=== PATIENT | male | born 1935 | race Caucasian/White ===

== ENCOUNTER 2016-11-18 11:33 | Day surgery (SDC) | payer MEDICARE ==
[2016-11-18 12:19] VITALS: RESP 20; TEMP 97.6
[2016-11-18 12:19] LABS: Mean Platelet Volume 7.6
[2016-11-18 12:28] LABS: Non-African American GFR(MDRD) >60 (>60 ml/min/1.73 sqM)
[2016-11-18 12:36] LABS: INR 1.2 (<1.1)
[2016-11-18] MEDS: ALBUMIN HUMAN 25% 50 ML in EMPTY BAG 1 BAG IVPB SCH ×4 (13:51→14:31)
[2016-11-18 14:57] VITALS: BP 113/61; PULSE 84
--- NOTE | 2016-11-18 15:40 | US ---
Therapeutic paracentesis. CLINICAL HISTORY: Ascites The procedure was discussed with the patient. The risks, complications, benefits, and alternatives we re discussed and any questions were answered. Informed consent was obtained. The patient was placed s upine on the ultrasound table and prepped and draped in the usual sterile fashion. All elements of maximal barrier technique were utilized. Under ultrasound guidance, access into the right lower quadrant was obtained, via the paracentesis catheter system and direct ultrasound guidanc e. Approximately 10.1 liters of straw-colored fluid was removed. The patient was stable throughout the p rocedure and remained stable upon discharge from Department of Radiology. IMPRESSION: Successful therapeutic paracentesis under ultrasound guidance.
[2016-11-19 03:26] LABS: RBC, Body Fluid 34 /uL
[2016-11-19 16:31] LABS: LDH, Body Fluid Source Paracentesis Fluid
[2016-11-19 16:48] LABS: T. Protein, Body Fluid Source Paracentesis Fluid; Total Protein, Body Fluid 1620 mg/dL
== END 2016-11-18 15:20 | disposition home or self-care (01) ==
LOC: RADPROMAIN 11:33
PROVIDERS: ATTEND Internal Medicine
DX: R18.8 Other ascites (principal)
CPT/HCPCS: 88108; 88305; 89050; 82565; 85049; 85610; 87070; 87205; 87075; 96365; 36415; 49083; P9047; 82150; 83615; 84157

== ENCOUNTER 2017-02-05 11:47 | Day surgery (SDC) | payer MEDICARE ==
[2017-02-05 12:19] VITALS: RESP 14; TEMP 97.4
[2017-02-05 12:50] LABS: INR 1.1 (<1.1); Partial Thromboplastin Time 22.3 sec (22.0-30.0); Prothrombin Time 11.3 sec (9.0-12.0)
[2017-02-05 12:50] LABS: Glucose,Whole Blood 89 mg/dL (75-99)
[2017-02-05 12:52] LABS: Mean Platelet Volume 7.4
[2017-02-05 13:00] LABS: Non-African American GFR(MDRD) >60 (>60 ml/min/1.73 sqM)
[2017-02-05] MEDS: ALBUMIN HUMAN 25% 50 ML in EMPTY BAG 1 BAG IVPB SCH ×2 (13:42→14:06)
[2017-02-05 15:17] VITALS: BP 114/59; PULSE 86
--- NOTE | 2017-02-05 21:54 | US ---
EXAMINATION TYPE: US paracentesis abd w/image DATE OF EXAM: 02/05/2017 CLINICAL HISTORY: Ascites The procedure was discussed with the patient. The risks, complications, benefits, and alternatives we re discussed and any questions were answered. Informed consent was obtained. The patient was placed s upine on the ultrasound table and prepped and draped in the usual sterile fashion. All elements of maximal barrier technique were utilized. Under ultrasound guidance, access into the right lower quadrant was obtained, via the paracentesis catheter system and direct ultrasound guidanc e. Approximately 10.6 liters of straw-colored fluid was removed. The patient was stable throughout the p rocedure and remained stable upon discharge from Department of Radiology. IMPRESSION: Successful therapeutic paracentesis under ultrasound guidance.
== END 2017-02-05 16:00 | disposition home or self-care (01) ==
LOC: RADPROMAIN 11:47
DX: R18.8 Other ascites (principal); I10 Essential (primary) hypertension; M19.90 Unspecified osteoarthritis, unspecified site; E78.5 Hyperlipidemia, unspecified; N40.0 Benign prostatic hyperplasia without lower urinary tract symptoms; I48.0 Paroxysmal atrial fibrillation; L40.9 Psoriasis, unspecified; E11.9 Type 2 diabetes mellitus without complications; F98.8 Other specified behavioral and emotional disorders with onset usually occurring in childhood and adolescence; J20.9 Acute bronchitis, unspecified; H91.90 Unspecified hearing loss, unspecified ear; Z79.01 Long term (current) use of anticoagulants; Z79.82 Long term (current) use of aspirin; Z79.899 Other long term (current) drug therapy; Z88.1 Allergy status to other antibiotic agents
CPT/HCPCS: 82565; 85049; 85610; 85730; 96374; 49083; P9047

== ENCOUNTER 2017-02-25 08:53 | Day surgery (SDC) | payer MEDICARE ==
[2017-02-25 09:24] VITALS: RESP 20; TEMP 97.5
[2017-02-25 09:31] LABS: Mean Platelet Volume 7.9
[2017-02-25 09:36] LABS: INR 1.1 (<1.2); Prothrombin Time 11.4 sec (9.0-12.0)
[2017-02-25 09:40] LABS: Non-African American GFR(MDRD) >60 (>60 ml/min/1.73 sqM)
[2017-02-25] MEDS: ALBUMIN HUMAN 25% 50 ML in EMPTY BAG 1 BAG IVPB SCH ×4 (10:25→11:15)
[2017-02-25 12:08] VITALS: BP 113/60; PULSE 80
--- NOTE | 2017-02-25 13:59 | US ---
EXAMINATION TYPE: US paracentesis abd w/image DATE OF EXAM: 02/25/2017 COMPARISON: NONE HISTORY: Ascites. PROCEDURE: Maximal barrier technique was utilized. The skin overlying a suitable pocket of fluid was localized with ultrasound and the overlying skin was prepped and draped. Ultrasound was utilized with sterile technique. Lidocaine was used for local anesthesia and a skin kezia made with a scalpel. Catheter was advanced under direct ultrasound guidance into a suitable pocket of fluid and approximately 13.6 lite rs of serous fluid were removed. Catheter was withdrawn and hemostasis achieved. There is no immedi ate complication; the patient is discharged in stable condition. IMPRESSION: STATUS POST ULTRASOUND GUIDED PARACENTESIS FOR PALLIATION OF ASCITES. THIS PROCEDURE WA S PERFORMED BY THE UNDERSIGNED.
== END 2017-02-25 12:30 | disposition home or self-care (01) ==
LOC: RADPROMAIN 08:53
PROVIDERS: ATTEND Internal Medicine
DX: R18.8 Other ascites (principal)
CPT/HCPCS: 49083; 82565; 36415; 85049; 85610; 96365; P9047

== ENCOUNTER 2017-03-13 08:56 | Day surgery (SDC) | payer MEDICARE ==
[2017-03-13 09:22] VITALS: RESP 20; TEMP 97.5
[2017-03-13 09:32] LABS: Non-African American GFR(MDRD) >60 (>60 ml/min/1.73 sqM)
[2017-03-13 09:34] LABS: INR 1.2 (<1.2); Prothrombin Time 11.5 sec (9.0-12.0)
[2017-03-13 09:40] LABS: Mean Platelet Volume 7.8
[2017-03-13] MEDS: ALBUMIN HUMAN 25% 50 ML in EMPTY BAG 1 BAG IVPB SCH ×4 (10:55→11:47)
[2017-03-13 12:43] VITALS: BP 117/70; PULSE 121
--- NOTE | 2017-03-13 13:28 | US ---
EXAMINATION TYPE: US paracentesis abd w/image DATE OF EXAM: 03/13/2017 COMPARISON: NONE HISTORY: Ascites. PROCEDURE: Maximal barrier technique was utilized. The skin overlying a suitable pocket of fluid was localized with ultrasound and the overlying skin was prepped and draped. Ultrasound was utilized with sterile technique. Lidocaine was used for local anesthesia and a skin kezia made with a scalpel. Catheter was advanced under direct ultrasound guidance into a suitable pocket of fluid and approximately 13.6 lite rs of serous fluid were removed. Catheter was withdrawn and hemostasis achieved. There is no immedi ate complication; the patient is discharged in stable condition. IMPRESSION: STATUS POST ULTRASOUND GUIDED PARACENTESIS FOR PALLIATION OF ASCITES. THIS PROCEDURE WA S PERFORMED BY THE UNDERSIGNED.
== END 2017-03-13 12:50 | disposition home or self-care (01) ==
LOC: RADPROMAIN 08:56
PROVIDERS: ATTEND Internal Medicine
DX: R18.8 Other ascites (principal)
CPT/HCPCS: 82565; 85049; 85610; 96365; 36415; 49083; P9047

== ENCOUNTER 2017-03-25 09:06 | Day surgery (SDC) | payer MEDICARE ==
[2017-03-25 09:32] LABS: Mean Platelet Volume 7.4
[2017-03-25 09:33] VITALS: TEMP 97
[2017-03-25 09:42] LABS: INR 1.1 (<1.2); Prothrombin Time 11.2 sec (9.0-12.0)
[2017-03-25 09:44] LABS: Non-African American GFR(MDRD) >60 (>60 ml/min/1.73 sqM)
[2017-03-25] MEDS: ALBUMIN HUMAN 25% 50 ML in EMPTY BAG 1 BAG IVPB SCH ×4 (10:05→10:55)
[2017-03-25 10:34] VITALS: RESP 16
[2017-03-25 11:15] VITALS: PULSE 66
[2017-03-25 11:34] VITALS: BP 134/74
--- NOTE | 2017-03-25 12:14 | US ---
Therapeutic paracentesis. DATE OF EXAM: 03/25/2017 CLINICAL HISTORY: Ascites The procedure was discussed with the patient. The risks, complications, benefits, and alternatives we re discussed and any questions were answered. Informed consent was obtained. The patient was placed s upine on the ultrasound table and prepped and draped in the usual sterile fashion. All elements of maximal barrier technique were utilized. Under ultrasound guidance, access into the right lower quadrant was obtained, via the paracentesis catheter system and direct ultrasound guidanc e. Approximately 11.3 liters of straw-colored fluid was removed. The patient was stable throughout the p rocedure and remained stable upon discharge from Department of Radiology. IMPRESSION: Successful therapeutic paracentesis under ultrasound guidance.
[2017-03-25 14:06] LABS: Glucose,Whole Blood 86 mg/dL (75-99)
== END 2017-03-25 12:25 | disposition home or self-care (01) ==
LOC: RADPROMAIN 09:06
PROVIDERS: ATTEND Internal Medicine
CPT/HCPCS: 36415; 49083; 82565; 85049; 85610

== ENCOUNTER 2017-04-06 08:48 | Day surgery (SDC) | payer MEDICARE ==
[2017-04-06 09:12] VITALS: RESP 14; TEMP 97.4
[2017-04-06 09:23] LABS: Mean Platelet Volume 7.8
[2017-04-06 09:29] LABS: Non-African American GFR(MDRD) >60 (>60 ml/min/1.73 sqM)
[2017-04-06 09:32] LABS: INR 1.1 (<1.2); Prothrombin Time 10.9 sec (9.0-12.0)
[2017-04-06 09:34] LABS: Glucose,Whole Blood 95 mg/dL (75-99)
[2017-04-06] MEDS: ALBUMIN HUMAN 25% 50 ML in EMPTY BAG 1 BAG IVPB SCH ×4 (09:58→10:50)
[2017-04-06 11:47] VITALS: BP 117/61; PULSE 93
--- NOTE | 2017-04-06 12:10 | US ---
Therapeutic paracentesis. DATE OF EXAM: 04/06/2017 CLINICAL HISTORY: Ascites The procedure was discussed with the patient. The risks, complications, benefits, and alternatives we re discussed and any questions were answered. Informed consent was obtained. The patient was placed s upine on the ultrasound table and prepped and draped in the usual sterile fashion. All elements of maximal barrier technique were utilized. Under ultrasound guidance, access into the right lower quadrant was obtained, via the paracentesis catheter system and direct ultrasound guidanc e. Approximately 14 liters of straw-colored fluid was removed. The patient was stable throughout the pro cedure and remained stable upon discharge from Department of Radiology. IMPRESSION: Successful therapeutic paracentesis under ultrasound guidance.
== END 2017-04-06 11:51 | disposition home or self-care (01) ==
LOC: RADPROMAIN 08:48
PROVIDERS: ATTEND Internal Medicine
DX: R18.8 Other ascites (principal)
CPT/HCPCS: 82565; 85049; 85610; 96365; 49083; P9047

== ENCOUNTER 2017-04-14 11:49 | Day surgery (SDC) | payer MEDICARE ==
[2017-04-14 12:22] VITALS: RESP 14; TEMP 97.6
[2017-04-14 12:27] LABS: Mean Platelet Volume 7.7
[2017-04-14 12:36] LABS: Non-African American GFR(MDRD) >60 (>60 ml/min/1.73 sqM)
[2017-04-14 12:50] LABS: INR 1.1 (<1.2); Prothrombin Time 11.5 sec (9.0-12.0)
[2017-04-14] MEDS: ALBUMIN HUMAN 25% 50 ML in EMPTY BAG 1 BAG IVPB SCH ×4 (13:10→14:03)
[2017-04-14 14:00] LABS: Glucose,Whole Blood 68 mg/dL (75-99)
[2017-04-14 14:25] LABS: Glucose,Whole Blood 70 mg/dL (75-99)
[2017-04-14 14:51] VITALS: BP 115/69; PULSE 82
--- NOTE | 2017-04-14 14:54 | US ---
Therapeutic paracentesis. DATE OF EXAM: 04/14/2017 CLINICAL HISTORY: Ascites The procedure was discussed with the patient. The risks, complications, benefits, and alternatives we re discussed and any questions were answered. Informed consent was obtained. The patient was placed s upine on the ultrasound table and prepped and draped in the usual sterile fashion. All elements of maximal barrier technique were utilized. Under ultrasound guidance, access into the right lower quadrant was obtained, via the paracentesis catheter system and direct ultrasound guidanc e. Approximately 11.3 liters of straw-colored fluid was removed. The patient was stable throughout the p rocedure and remained stable upon discharge from Department of Radiology. IMPRESSION: Successful therapeutic paracentesis under ultrasound guidance.
== END 2017-04-14 15:22 | disposition home or self-care (01) ==
LOC: RADPROMAIN 11:49
PROVIDERS: ATTEND Internal Medicine
DX: R18.8 Other ascites (principal)
CPT/HCPCS: 82565; 85049; 85610; 96365; 49083; P9047

== ENCOUNTER 2017-04-21 11:54 | Day surgery (SDC) | payer MEDICARE ==
[2017-04-21 12:34] LABS: INR 1.2 (<1.2); Prothrombin Time 11.7 sec (9.0-12.0)
[2017-04-21 12:35] LABS: Mean Platelet Volume 8.1
[2017-04-21 12:36] VITALS: TEMP 97.1
[2017-04-21 12:47] LABS: Non-African American GFR(MDRD) 59 (>60 ml/min/1.73 sqM)
[2017-04-21] MEDS: ALBUMIN HUMAN 25% 50 ML in EMPTY BAG 1 BAG IVPB SCH ×4 (13:26→14:15)
--- NOTE | 2017-04-21 15:09 | US ---
Therapeutic paracentesis. DATE OF EXAM: 04/21/2017 CLINICAL HISTORY: Ascites The procedure was discussed with the patient. The risks, complications, benefits, and alternatives we re discussed and any questions were answered. Informed consent was obtained. The patient was placed s upine on the ultrasound table and prepped and draped in the usual sterile fashion. All elements of maximal barrier technique were utilized. Under ultrasound guidance, access into the right lower quadrant was obtained, via the paracentesis catheter system and direct ultrasound guidanc e. Approximately 8.6 liters of straw-colored fluid was removed. The patient was stable throughout the pr ocedure and remained stable upon discharge from Department of Radiology. IMPRESSION: Successful therapeutic paracentesis under ultrasound guidance.
[2017-04-21 15:14] VITALS: BP 100/51; PULSE 74; RESP 18
== END 2017-04-21 15:00 | disposition home or self-care (01) ==
LOC: RADPROMAIN 11:54
PROVIDERS: ATTEND Internal Medicine
DX: R18.8 Other ascites (principal)
CPT/HCPCS: 82565; 82947; 85049; 85610; 96365; 36415; 49083; P9047

== ENCOUNTER 2017-04-28 08:52 | Day surgery (SDC) | payer MEDICARE ==
[2017-04-28 09:21] VITALS: RESP 20; TEMP 97.4
[2017-04-28 09:26] LABS: Mean Platelet Volume 7.7
[2017-04-28 09:34] LABS: Non-African American GFR(MDRD) >60 (>60 ml/min/1.73 sqM)
[2017-04-28 09:40] LABS: INR 1.1 (<1.2); Prothrombin Time 11.2 sec (9.0-12.0)
[2017-04-28] MEDS: ALBUMIN HUMAN 25% 50 ML in EMPTY BAG 1 BAG IVPB SCH ×4 (10:51→11:31)
[2017-04-28 12:00] VITALS: BP 121/69; PULSE 78
--- NOTE | 2017-04-28 12:46 | US ---
EXAMINATION TYPE: US paracentesis abd w/image DATE OF EXAM: 04/28/2017 COMPARISON: NONE HISTORY: Ascites. PROCEDURE: Maximal barrier technique was utilized. The skin overlying a suitable pocket of fluid was localized with ultrasound and the overlying skin was prepped and draped. Ultrasound was utilized with sterile technique. Lidocaine was used for local anesthesia and a skin kezia made with a scalpel. Catheter was advanced under direct ultrasound guidance into a suitable pocket of fluid and approximately 10.2 lite rs of serous fluid were removed. Catheter was withdrawn and hemostasis achieved. There is no immedi ate complication; the patient is discharged in stable condition. IMPRESSION: STATUS POST ULTRASOUND GUIDED PARACENTESIS FOR PALLIATION OF ASCITES. THIS PROCEDURE WA S PERFORMED BY THE UNDERSIGNED.
== END 2017-04-28 12:12 | disposition home or self-care (01) ==
LOC: RADPROMAIN 08:52
PROVIDERS: ATTEND Internal Medicine
DX: R18.8 Other ascites (principal)
CPT/HCPCS: 82565; 85049; 85610; 96365; 36415; 49083; P9047

== ENCOUNTER 2017-05-05 08:00 | Day surgery (SDC) | payer MEDICARE ==
[2017-05-05 08:48] LABS: Mean Platelet Volume 7.8
[2017-05-05 08:49] LABS: Non-African American GFR(MDRD) >60 (>60 ml/min/1.73 sqM)
[2017-05-05 08:58] LABS: INR 1.1 (<1.2); Prothrombin Time 10.8 sec (9.0-12.0)
[2017-05-05 09:19] VITALS: TEMP 97.3
[2017-05-05] MEDS: ALBUMIN HUMAN 25% 50 ML in EMPTY BAG 1 BAG IVPB SCH ×4 (09:46→10:55)
[2017-05-05 10:12] VITALS: RESP 18
[2017-05-05 12:07] VITALS: BP 114/64; PULSE 68
--- NOTE | 2017-05-05 12:18 | US ---
EXAMINATION TYPE: US paracentesis abd w/image DATE OF EXAM: 05/05/2017 COMPARISON: NONE HISTORY: Ascites. PROCEDURE: Maximal barrier technique was utilized. The skin overlying a suitable pocket of fluid was localized with ultrasound and the overlying skin was prepped and draped. Ultrasound was utilized with sterile technique. Lidocaine was used for local anesthesia and a skin kezia made with a scalpel. Catheter was advanced under direct ultrasound guidance into a suitable pocket of fluid and approximately 11 liters of serous fluid were removed. Catheter was withdrawn and hemostasis achieved. There is no immediat e complication; the patient is discharged in stable condition. IMPRESSION: STATUS POST ULTRASOUND GUIDED PARACENTESIS FOR PALLIATION OF ASCITES. THIS PROCEDURE WA S PERFORMED BY THE UNDERSIGNED.
== END 2017-05-05 12:05 | disposition home or self-care (01) ==
LOC: RADPROMAIN 08:00
PROVIDERS: ATTEND Internal Medicine
DX: R18.8 Other ascites (principal)
CPT/HCPCS: 82565; 85049; 85610; 96365; 36415; 49083; P9047

== ENCOUNTER 2017-05-12 11:51 | Day surgery (SDC) | payer MEDICARE ==
[2017-05-12 12:26] LABS: Mean Platelet Volume 7.9
[2017-05-12 12:36] LABS: Non-African American GFR(MDRD) >60 (>60 ml/min/1.73 sqM)
[2017-05-12 12:37] LABS: Glucose,Whole Blood 87 mg/dL (75-99)
[2017-05-12 12:42] LABS: INR 1.1 (<1.2); Prothrombin Time 10.9 sec (9.0-12.0)
[2017-05-12] MEDS: ALBUMIN HUMAN 25% 50 ML in EMPTY BAG 1 BAG IVPB SCH ×4 (13:26→14:14)
[2017-05-12 13:32] VITALS: TEMP 98.1
[2017-05-12 14:17] VITALS: RESP 16
[2017-05-12 14:36] VITALS: BP 117/68; PULSE 70
--- NOTE | 2017-05-12 16:29 | US ---
EXAMINATION TYPE: US paracentesis abd w/image DATE OF EXAM: 05/12/2017 COMPARISON: NONE HISTORY: Ascites. PROCEDURE: Maximal barrier technique was utilized. The skin overlying a suitable pocket of fluid was localized with ultrasound and the overlying skin was prepped and draped. Ultrasound was utilized with sterile technique. Lidocaine was used for local anesthesia and a skin kezia made with a scalpel. Catheter was advanced under direct ultrasound guidance into a suitable pocket of fluid and approximately 8.5 liter s of serous fluid were removed. Catheter was withdrawn and hemostasis achieved. There is no immedia te complication; the patient is discharged in stable condition. IMPRESSION: STATUS POST ULTRASOUND GUIDED PARACENTESIS FOR PALLIATION OF ASCITES. THIS PROCEDURE WA S PERFORMED BY THE UNDERSIGNED.
== END 2017-05-12 14:54 | disposition home or self-care (01) ==
LOC: RADPROMAIN 11:51
PROVIDERS: ATTEND Internal Medicine
DX: R18.8 Other ascites (principal)
CPT/HCPCS: 49083; 82565; 85049; 85610; 96365; 36415; P9047

== ENCOUNTER 2017-05-19 11:49 | Day surgery (SDC) | payer MEDICARE ==
[2017-05-19 12:49] LABS: Mean Platelet Volume 7.3
[2017-05-19 12:57] LABS: Glucose 88 mg/dL (74-99); Non-African American GFR(MDRD) >60 (>60 ml/min/1.73 sqM)
[2017-05-19 13:20] LABS: INR 1.1 (<1.2); Prothrombin Time 10.6 sec (9.0-12.0)
[2017-05-19] MEDS: ALBUMIN HUMAN 25% 50 ML in EMPTY BAG 1 BAG IVPB SCH ×4 (13:27→14:22)
[2017-05-19 13:44] VITALS: TEMP 98
[2017-05-19 13:45] VITALS: RESP 16
--- NOTE | 2017-05-19 14:50 | US ---
EXAMINATION TYPE: US paracentesis abd w/image DATE OF EXAM: 05/19/2017 COMPARISON: NONE HISTORY: Ascites. PROCEDURE: Maximal barrier technique was utilized. The skin overlying a suitable pocket of fluid was localized with ultrasound and the overlying skin was prepped and draped. Ultrasound was utilized with sterile technique. Lidocaine was used for local anesthesia and a skin kezia made with a scalpel. Catheter was advanced under direct ultrasound guidance into a suitable pocket of fluid and approximately 7.8 liter s of serous fluid were removed. Catheter was withdrawn and hemostasis achieved. There is no immedia te complication; the patient is discharged in stable condition. IMPRESSION: STATUS POST ULTRASOUND GUIDED PARACENTESIS FOR PALLIATION OF ASCITES. THIS PROCEDURE WA S PERFORMED BY THE UNDERSIGNED.
[2017-05-19 15:32] VITALS: BP 131/70; PULSE 76
== END 2017-05-19 14:55 | disposition home or self-care (01) ==
LOC: RADPROMAIN 11:49
PROVIDERS: ATTEND Internal Medicine
DX: R18.8 Other ascites (principal)
CPT/HCPCS: 82565; 82947; 85049; 85610; 96365; 36415; 49083; P9047

== ENCOUNTER 2017-06-09 08:51 | Day surgery (SDC) | payer MEDICARE ==
[2017-06-09 09:51] LABS: Mean Platelet Volume 7.5
[2017-06-09 09:54] VITALS: TEMP 97.5
[2017-06-09 09:55] LABS: INR 1.1 (<1.2)
[2017-06-09 10:01] LABS: Non-African American GFR(MDRD) >60 (>60 ml/min/1.73 sqM)
[2017-06-09] MEDS: ALBUMIN HUMAN 25% 50 ML in EMPTY BAG 1 BAG IVPB SCH ×4 (10:42→11:33)
[2017-06-09 11:34] VITALS: RESP 16
--- NOTE | 2017-06-09 14:12 | US ---
EXAMINATION TYPE: US paracentesis abd w/image DATE OF EXAM: 06/09/2017 COMPARISON: NONE HISTORY: Ascites. PROCEDURE: Maximal barrier technique was utilized. The skin overlying a suitable pocket of fluid was localized with ultrasound and the overlying skin was prepped and draped. Ultrasound was utilized with sterile technique. Lidocaine was used for local anesthesia and a skin kezia made with a scalpel. Catheter was advanced under direct ultrasound guidance into a suitable pocket of fluid and approximately 10.4 lite rs of serous fluid were removed. Catheter was withdrawn and hemostasis achieved. There is no immedi ate complication; the patient is discharged in stable condition. IMPRESSION: STATUS POST ULTRASOUND GUIDED PARACENTESIS FOR PALLIATION OF ASCITES. THIS PROCEDURE WA S PERFORMED BY THE UNDERSIGNED.
[2017-06-09 14:14] VITALS: BP 110/70; PULSE 95
== END 2017-06-09 12:55 | disposition home or self-care (01) ==
LOC: RADPROMAIN 08:51
PROVIDERS: ATTEND Internal Medicine
DX: R18.8 Other ascites (principal)
CPT/HCPCS: 82565; 85049; 85610; 96365; 36415; 49083; P9047

== ENCOUNTER 2017-06-16 11:52 | Day surgery (SDC) | payer MEDICARE ==
[2017-06-16] MEDS ORDERED: INFLUENZA VACCINE (6 MOS+) 60 MCG/0.5 ML SYRINGE IM ONE (12:17)
[2017-06-16 12:26] LABS: CH 30.8; CHCM 33.6; HCT 38.8 % (39.0-53.0); HDW 2.25; MCH 30.9 pg (25.0-35.0); MCHC 33.5 g/dL (31.0-37.0); MCV 92.3 fL (80.0-100.0); Mean Platelet Volume 6.9; RBC 4.21 m/uL (4.30-5.90); RDW 14.5 % (11.5-15.5); WBC 9.2 k/uL (3.8-10.6)
[2017-06-16 12:36] VITALS: RESP 14; TEMP 97.8
[2017-06-16 12:39] LABS: Anion Gap 5 mmol/L; Blood Urea Nitrogen 29 mg/dL (9-20); Calcium 8.4 mg/dL (8.4-10.2); Carbon Dioxide 25 mmol/L (22-30); Chloride 101 mmol/L (98-107); Glucose 91 mg/dL (74-99); Non-African American GFR(MDRD) >60 (>60 ml/min/1.73 sqM); Sodium 131 mmol/L (137-145); Total Protein 6.4 g/dL (6.3-8.2)
[2017-06-16 12:40] LABS: ALT 48 U/L (21-72); AST 49 U/L (17-59); Alkaline Phosphatase 245 U/L (38-126); Total Bilirubin 1.3 mg/dL (0.2-1.3)
[2017-06-16 12:41] LABS: Potassium 4.4 mmol/L (3.5-5.1)
[2017-06-16 12:45] LABS: INR 1.1 (<1.2); Partial Thromboplastin Time 23.5 sec (22.0-30.0); Prothrombin Time 11.1 sec (9.0-12.0)
[2017-06-16] MEDS: ALBUMIN HUMAN 25% 50 ML in EMPTY BAG 1 BAG IVPB SCH ×4 (13:38→14:15)
[2017-06-16 14:53] VITALS: BP 113/58; PULSE 89
--- NOTE | 2017-06-16 15:29 | US ---
EXAMINATION TYPE: US paracentesis abd w/image DATE OF EXAM: 06/16/2017 COMPARISON: NONE HISTORY: Ascites. PROCEDURE: Maximal barrier technique was utilized. The skin overlying a suitable pocket of fluid was localized with ultrasound and the overlying skin was prepped and draped. Ultrasound was utilized with sterile technique. Lidocaine was used for local anesthesia and a skin kezia made with a scalpel. Catheter was advanced under direct ultrasound guidance into a suitable pocket of fluid and approximately 9.5 liter s of serous fluid were removed. Catheter was withdrawn and hemostasis achieved. There is no immedia te complication; the patient is discharged in stable condition. IMPRESSION: STATUS POST ULTRASOUND GUIDED PARACENTESIS FOR PALLIATION OF ASCITES. THIS PROCEDURE WA S PERFORMED BY THE UNDERSIGNED.
== END 2017-06-16 15:25 | disposition home or self-care (01) ==
LOC: RADPROMAIN 11:52
PROVIDERS: ATTEND Internal Medicine
DX: R18.8 Other ascites (principal); I48.0 Paroxysmal atrial fibrillation
CPT/HCPCS: 49083; 80053; 85027; 85610; 85730; 90686

== ENCOUNTER 2017-06-23 11:48 | Day surgery (SDC) | payer MEDICARE ==
[2017-06-23 12:24] LABS: Mean Platelet Volume 7.9
[2017-06-23 12:26] VITALS: RESP 16
[2017-06-23 12:34] LABS: Glucose,Whole Blood 80 mg/dL (75-99)
[2017-06-23 12:36] LABS: Non-African American GFR(MDRD) >60 (>60 ml/min/1.73 sqM)
[2017-06-23 12:54] LABS: INR 1.1 (<1.2)
[2017-06-23] MEDS: ALBUMIN HUMAN 25% 50 ML in EMPTY BAG 1 BAG IVPB SCH ×4 (13:31→14:17)
--- NOTE | 2017-06-23 15:22 | US ---
Therapeutic paracentesis. DATE OF EXAM: 06/23/2017 CLINICAL HISTORY: Ascites The procedure was discussed with the patient. The risks, complications, benefits, and alternatives we re discussed and any questions were answered. Informed consent was obtained. The patient was placed s upine on the ultrasound table and prepped and draped in the usual sterile fashion. All elements of maximal barrier technique were utilized. Under ultrasound guidance, access into the left lower quadrant was obtained, via the paracentesis catheter system and direct ultrasound guidance . Approximately 9.3 liters of straw-colored fluid was removed. The patient was stable throughout the pr ocedure and remained stable upon discharge from Department of Radiology. IMPRESSION: Successful therapeutic paracentesis under ultrasound guidance.
[2017-06-23 16:18] VITALS: BP 123/69; PULSE 82
== END 2017-06-23 16:54 | disposition home or self-care (01) ==
LOC: RADPROMAIN 11:48
PROVIDERS: ATTEND Internal Medicine
DX: R18.8 Other ascites (principal); I48.0 Paroxysmal atrial fibrillation
CPT/HCPCS: 82565; 85049; 85610; 96365; 36415; 49083; P9047

== ENCOUNTER 2017-07-21 10:52 | Day surgery (SDC) | payer MEDICARE ==
[2017-07-21 11:50] LABS: Mean Platelet Volume 7.8
[2017-07-21 11:57] LABS: Non-African American GFR(MDRD) >60 (>60 ml/min/1.73 sqM)
[2017-07-21 12:27] LABS: INR 1.1 (<1.2); Prothrombin Time 10.9 sec (9.0-12.0)
[2017-07-21] MEDS: ALBUMIN HUMAN 25% 50 ML in EMPTY BAG 1 BAG IVPB SCH ×4 (13:10→13:53)
[2017-07-21 13:34] VITALS: TEMP 97.5
--- NOTE | 2017-07-21 14:37 | US ---
EXAMINATION TYPE: US paracentesis abd w/image DATE OF EXAM: 07/21/2017 COMPARISON: NONE HISTORY: Ascites. PROCEDURE: Maximal barrier technique was utilized. The skin overlying a suitable pocket of fluid was localized with ultrasound and the overlying skin was prepped and draped. Ultrasound was utilized with sterile technique. Lidocaine was used for local anesthesia and a skin kezia made with a scalpel. Catheter was advanced under direct ultrasound guidance into a suitable pocket of fluid and approximately 9.5 liter s of traiq fluid were removed. Catheter was withdrawn and hemostasis achieved. There is no immediat e complication; the patient is discharged in stable condition. IMPRESSION: STATUS POST ULTRASOUND GUIDED PARACENTESIS FOR PALLIATION OF ASCITES. THIS PROCEDURE WA S PERFORMED BY THE UNDERSIGNED.
[2017-07-21 15:17] VITALS: RESP 18
[2017-07-21 15:18] VITALS: BP 111/74; PULSE 94
== END 2017-07-21 14:40 | disposition home or self-care (01) ==
LOC: RADPROMAIN 10:52
PROVIDERS: ATTEND Internal Medicine
DX: R18.8 Other ascites (principal)
CPT/HCPCS: 49083; 82565; 85049; 85610; 96365; 36415; P9047

== ENCOUNTER 2017-07-28 11:50 | Day surgery (SDC) | payer MEDICARE ==
[2017-07-28 12:31] LABS: Platelet Count 299 k/uL (150-450)
[2017-07-28 12:36] LABS: INR 1.1 (<1.2); Prothrombin Time 10.7 sec (9.0-12.0)
[2017-07-28] MEDS: ALBUMIN HUMAN 25% 50 ML in EMPTY BAG 1 BAG IVPB SCH ×4 (13:10→14:11)
--- NOTE | 2017-07-28 15:06 | US ---
Therapeutic paracentesis. DATE OF EXAM: 07/28/2017 CLINICAL HISTORY: Ascites The procedure was discussed with the patient. The risks, complications, benefits, and alternatives we re discussed and any questions were answered. Informed consent was obtained. The patient was placed s upine on the ultrasound table and prepped and draped in the usual sterile fashion. All elements of maximal barrier technique were utilized. Under ultrasound guidance, access into the right lower quadrant was obtained, via the paracentesis catheter system and direct ultrasound guidanc e. Approximately 10.7 liters of straw-colored fluid was removed. The patient was stable throughout the p rocedure and remained stable upon discharge from Department of Radiology. IMPRESSION: Successful therapeutic paracentesis under ultrasound guidance.
[2017-07-29 23:03] VITALS: BP 122/74; PULSE 74; RESP 18; TEMP 97.4
== END 2017-07-28 15:10 | disposition home or self-care (01) ==
LOC: RADPROMAIN 11:50
PROVIDERS: ATTEND Internal Medicine
DX: R18.8 Other ascites (principal)
CPT/HCPCS: 49083; 82565; 85049; 85610; 96365; 36415; P9047

== ENCOUNTER 2017-08-04 12:05 | Day surgery (SDC) | payer MEDICARE ==
[2017-08-04 12:31] VITALS: RESP 20; TEMP 97.6
[2017-08-04 12:46] LABS: Mean Platelet Volume 7.6; Platelet Count 367 k/uL (150-450)
[2017-08-04 12:53] LABS: INR 1.1 (<1.2); Prothrombin Time 10.3 sec (9.0-12.0)
[2017-08-04] MEDS: ALBUMIN HUMAN 25% 50 ML in EMPTY BAG 1 BAG IVPB SCH ×4 (13:28→14:26)
[2017-08-04 15:37] VITALS: BP 105/60; PULSE 90
--- NOTE | 2017-08-04 16:05 | US ---
EXAMINATION TYPE: US paracentesis abd w/image DATE OF EXAM: 08/04/2017 COMPARISON: NONE HISTORY: Ascites. PROCEDURE: Maximal barrier technique was utilized. The skin overlying a suitable pocket of fluid was localized with ultrasound and the overlying skin was prepped and draped. Ultrasound was utilized with sterile technique. Lidocaine was used for local anesthesia and a skin kezia made with a scalpel. Catheter was advanced under direct ultrasound guidance into a suitable pocket of fluid and approximately 10.5 lite rs of serous sanguinous fluid were removed. Catheter was withdrawn and hemostasis achieved. There i s no immediate complication; the patient is discharged in stable condition. IMPRESSION: STATUS POST ULTRASOUND GUIDED PARACENTESIS FOR PALLIATION OF ASCITES. THIS PROCEDURE WA S PERFORMED BY THE UNDERSIGNED.
== END 2017-08-04 15:55 | disposition home or self-care (01) ==
LOC: RADPROMAIN 12:05
PROVIDERS: ATTEND Internal Medicine
DX: R18.8 Other ascites (principal)
CPT/HCPCS: 82565; 85049; 85610; 96365; 36415; 49083; P9047

== ENCOUNTER 2017-08-10 14:30 | Emergency (ER) | payer MEDICARE ==
[2017-08-10] MEDS ORDERED: MORPHINE SULFATE 5 MG/ML SYRINGE IV STA (15:22)
[2017-08-10] MEDS ORDERED: PANTOPRAZOLE 40 MG/10 ML VIAL IVP STA (15:22)
--- NOTE | 2017-08-10 15:31 | ED ---
General Adult HPI - General Chief complaint: Shortness of Breath Stated complaint: right side pain Time Seen by Provider: 08/10/17 15:05 Source: patient, RN notes reviewed, old records reviewed Mode of arrival: wheelchair Limitations: no limitations, physical limitation - History of Present Illness Initial comments: This is an 81-year-old male to the ER today for evaluation regarding shortness of breath right-sided abdominal pain. This abdominal distention. Patient has history of liver disease, cirrhosis secondary to alcoholism. Patient coming in today with mild shortness of breath secondary to distention, patient is scheduled for therapeutic paracentesis tomorrow. Patient denies fevers. Decreased appetite decreased urinary output. Patient denies any recent change in medications - Related Data Home Medications Medication Instructions Recorded Confirmed Apixaban [Eliquis] 5 mg PO DIRECTED 02/29/16 08/11/17 Enalapril/Hydrochlorothiazide 25 mg PO DAILY 02/29/16 08/11/17 [Vaseretic 10-25 mg] Spironolactone [Aldactone] 50 mg PO BID 11/13/16 08/11/17 Furosemide [Lasix] 20 mg PO BID@0800,1600 02/04/17 08/11/17 Previous Rx's Medication Instructions Recorded HYDROcodone/APAP 5-325MG [[place] 1 tab PO Q6HR PRN #20 tab 08/10/17 5-325] Allergies Allergy/AdvReac Type Severity Reaction Status Date / Time Penicillins Allergy Rash/Hives Verified 08/11/17 14:06 Review of Systems ROS Statement: Those systems with pertinent positive or pertinent negative responses have been documented in the HPI. ROS Other: All systems not noted in ROS Statement are negative. Past Medical History Past Medical History: Atrial Fibrillation, Cancer, Diabetes Mellitus, Hypertension, Liver Disease, Osteoarthritis (OA) Additional Past Medical History / Comment(s): a-fib - eliquis, skin ca History of Any Multi-Drug Resistant Organisms: None Reported Past Surgical History: No Surgical Hx Reported Additional Past Surgical History / Comment(s): multiple paracentesis, mole removed - skin ca Past Anesthesia/Blood Transfusion Reactions: No Reported Reaction Additional Past Anesthesia/Blood Transfusion Reaction / Comment(s): no past anesthesia/bld transfusion Past Psychological History: No Psychological Hx Reported Smoking Status: Never smoker Past Alcohol Use History: None Reported Past Drug Use History: None Reported - Past Family History Father Family Medical History: No Reported History General Exam Limitations: no limitations, physical limitation General appearance: alert, in no apparent distress Head exam: Present: atraumatic, normocephalic, normal inspection Eye exam: Present: normal appearance, PERRL, EOMI. Absent: scleral icterus, conjunctival injection, periorbital swelling ENT exam: Present: normal exam, mucous membranes moist Neck exam: Present: normal inspection. Absent: tenderness, meningismus, lymphadenopathy Respiratory exam: Present: normal lung sounds bilaterally. Absent: respiratory distress, wheezes, rales, rhonchi, stridor Cardiovascular Exam: Present: regular rate, normal rhythm, normal heart sounds. Absent: systolic murmur, diastolic murmur, rubs, gallop, clicks GI/Abdominal exam: Present: soft, distended (Distention and from ascites), normal bowel sounds. Absent: tenderness, guarding, rebound, rigid Extremities exam: Present: normal inspection, full ROM, normal capillary refill. Absent: tenderness, pedal edema, joint swelling, calf tenderness Back exam: Present: normal inspection Neurological exam: Present: alert, oriented X3, CN II-XII intact Psychiatric exam: Present: normal affect, normal mood Skin exam: Present: warm, dry, intact, normal color. Absent: rash Course Vital Signs 08/10/17 08/10/17 08/10/17 14:47 15:30 17:10 Temperature 98.0 F Pulse Rate 77 72 Respiratory 26 H 18 16 Rate Blood Pressure 115/56 117/57 O2 Sat by Pulse 92 L 99 Oximetry 08/10/17 19:30 Temperature 97.8 F Pulse Rate 74 Respiratory 18 Rate Blood Pressure 128/78 O2 Sat by Pulse 97 Oximetry - Reevaluation(s) Reevaluation #1: Patient shortness of breath and pain is well controlled at this time Medical Decision Making - Medical Decision Making 81 male the ER with right flank pain. Patient does have pain occasional with liver cirrhosis, pain is well-controlled at this point. Patient was given pain medication for home. Patient scheduled for therapeutics paracentesis tomorrow we'll continue that appointment - Lab Data Result diagrams: 08/10/17 15:43 08/10/17 15:43 Lab Results 08/10/17 08/10/17 08/10/17 Range/Units 15:43 15:43 15:43 WBC (3.8-10.6) k/uL RBC (4.30-5.90) m/uL Hgb (13.0-17.5) gm/dL Hct (39.0-53.0) % MCV (80.0-100.0) fL MCH (25.0-35.0) pg MCHC (31.0-37.0) g/dL RDW (11.5-15.5) % Plt Count (150-450) k/uL Neutrophils % % Lymphocytes % % Monocytes % % Eosinophils % % Basophils % % Neutrophils # (1.3-7.7) k/uL Lymphocytes # (1.0-4.8) k/uL Monocytes # (0-1.0) k/uL Eosinophils # (0-0.7) k/uL Basophils # (0-0.2) k/uL PT (9.0-12.0) sec INR (<1.2) APTT (22.0-30.0) sec Sodium 137 (137-145) mmol/L Potassium 4.3 (3.5-5.1) mmol/L Chloride 101 (98-107) mmol/L Carbon Dioxide 27 (22-30) mmol/L Anion Gap 9 mmol/L BUN 38 H (9-20) mg/dL Creatinine 1.00 (0.66-1.25) mg/dL Est GFR (MDRD) Af Amer >60 (>60 ml/min/1.73 sqM) Est GFR (MDRD) Non-Af >60 (>60 ml/min/1.73 sqM) Glucose 106 H (74-99) mg/dL Calcium 8.3 L (8.4-10.2) mg/dL Total Bilirubin 0.9 (0.2-1.3) mg/dL AST 38 (17-59) U/L ALT 42 (21-72) U/L Alkaline Phosphatase 236 H (38-126) U/L Ammonia <9 (<30) umol/L Total Creatine Kinase 35 L (55-170) U/L CK-MB (CK-2) 0.8 (0.0-2.4) ng/mL CK-MB (CK-2) Rel Index 2.3 Total Protein 6.1 L (6.3-8.2) g/dL Albumin 3.0 L (3.5-5.0) g/dL Amylase 73 (30-110) U/L Lipase 162 (23-300) U/L Urine Color Urine Appearance (Clear) Urine pH (5.0-8.0) Ur Specific [place] (1.001-1.035) Urine Protein (Negative) Urine Glucose (UA) (Negative) Urine Ketones (Negative) Urine Blood (Negative) Urine Nitrite (Negative) Urine Bilirubin (Negative) Urine Urobilinogen (<2.0) mg/dL Ur Leukocyte Esterase (Negative) Serum Alcohol <10 mg/dL 08/10/17 08/10/17 08/10/17 Range/Units 15:43 15:43 16:59 WBC 7.9 (3.8-10.6) k/uL RBC 3.89 L (4.30-5.90) m/uL Hgb 11.8 L (13.0-17.5) gm/dL Hct 36.1 L (39.0-53.0) % MCV 92.7 (80.0-100.0) fL MCH 30.3 (25.0-35.0) pg MCHC 32.6 (31.0-37.0) g/dL RDW 14.5 (11.5-15.5) % Plt Count 293 (150-450) k/uL Neutrophils % 85 % Lymphocytes % 4 % Monocytes % 8 % Eosinophils % 1 % Basophils % 0 % Neutrophils # 6.7 (1.3-7.7) k/uL Lymphocytes # 0.3 L (1.0-4.8) k/uL Monocytes # 0.7 (0-1.0) k/uL Eosinophils # 0.1 (0-0.7) k/uL Basophils # 0.0 (0-0.2) k/uL PT 10.5 (9.0-12.0) sec INR 1.1 (<1.2) APTT 22.2 (22.0-30.0) sec Sodium (137-145) mmol/L Potassium (3.5-5.1) mmol/L Chloride (98-107) mmol/L Carbon Dioxide (22-30) mmol/L Anion Gap mmol/L BUN (9-20) mg/dL Creatinine (0.66-1.25) mg/dL Est GFR (MDRD) Af Amer (>60 ml/min/1.73 sqM) Est GFR (MDRD) Non-Af (>60 ml/min/1.73 sqM) Glucose (74-99) mg/dL Calcium (8.4-10.2) mg/dL Total Bilirubin (0.2-1.3) mg/dL AST (17-59) U/L ALT (21-72) U/L Alkaline Phosphatase (38-126) U/L Ammonia (<30) umol/L Total Creatine Kinase (55-170) U/L CK-MB (CK-2) (0.0-2.4) ng/mL CK-MB (CK-2) Rel Index Total Protein (6.3-8.2) g/dL Albumin (3.5-5.0) g/dL Amylase (30-110) U/L Lipase (23-300) U/L Urine Color Yellow Urine Appearance Clear (Clear) Urine pH 5.0 (5.0-8.0) Ur Specific [place] 1.011 (1.001-1.035) Urine Protein Negative (Negative) Urine Glucose (UA) Negative (Negative) Urine Ketones Negative (Negative) Urine Blood Negative (Negative) Urine Nitrite Negative (Negative) Urine Bilirubin Negative (Negative) Urine Urobilinogen <2.0 (<2.0) mg/dL Ur Leukocyte Esterase Negative (Negative) Serum Alcohol mg/dL - Radiology Data Radiology results: report reviewed (Chest x-rays negative for acute disease, x- ray of the abdomen and pelvis negative), image reviewed Disposition Clinical Impression: Abdominal pain Disposition: HOME SELF-CARE Condition: Good Instructions: Abdominal Pain (ED) Prescriptions: HYDROcodone/APAP 5-325MG [[place] 5-325] 1 tab PO Q6HR PRN #20 tab PRN Reason: Pain Referrals: Barrett Jeter MD [Primary Care Provider] - 1-2 days
[2017-08-10 15:54] LABS: Basophils % (A) 0 %; Eosinophils # (A) 0.1 k/uL (0-0.7); Eosinophils % (A) 1 %; HCT 36.1 % (39.0-53.0); HGB 11.8 gm/dL (13.0-17.5); Lymphocytes # (A) 0.3 k/uL (1.0-4.8); Lymphocytes % (A) 4 %; MCH 30.3 pg (25.0-35.0); MCHC 32.6 g/dL (31.0-37.0); MCV 92.7 fL (80.0-100.0); Mean Platelet Volume 7.8; Monocytes # (A) 0.7 k/uL (0-1.0); Monocytes % (A) 8 %; Neutrophils # (A) 6.7 k/uL (1.3-7.7); Neutrophils % (A) 85 %; Platelet Count 293 k/uL (150-450); RBC 3.89 m/uL (4.30-5.90); RDW 14.5 % (11.5-15.5); WBC 7.9 k/uL (3.8-10.6)
[2017-08-10 16:06] LABS: AST 38 U/L (17-59); Alcohol <10 mg/dL; Alkaline Phosphatase 236 U/L (38-126); Amylase 73 U/L (30-110); Anion Gap 9 mmol/L; Blood Urea Nitrogen 38 mg/dL (9-20); Calcium 8.3 mg/dL (8.4-10.2); Carbon Dioxide 27 mmol/L (22-30); Chloride 101 mmol/L (98-107); Glucose 106 mg/dL (74-99); Lipase 162 U/L (23-300); Potassium 4.3 mmol/L (3.5-5.1); Sodium 137 mmol/L (137-145); Total Bilirubin 0.9 mg/dL (0.2-1.3); Total Protein 6.1 g/dL (6.3-8.2)
[2017-08-10 16:12] LABS: ALT 42 U/L (21-72)
[2017-08-10 16:16] LABS: INR 1.1 (<1.2); Partial Thromboplastin Time 22.2 sec (22.0-30.0); Prothrombin Time 10.5 sec (9.0-12.0)
[2017-08-10 16:19] LABS: Creatine Kinase MB 0.8 ng/mL (0.0-2.4)
[2017-08-10 17:23] LABS: Appearance,Urine Clear (Clear); Bilirubin,Urine Negative (Negative); Blood,Urine Negative (Negative); Color,Urine Yellow; Glucose,Urine (UA) Negative (Negative); Ketones,Urine Negative (Negative); Leukocyte Esterase,Urine Negative (Negative); Nitrite,Urine Negative (Negative); Protein,Urine Negative (Negative); Specific Gravity,Urine 1.011 (1.001-1.035); Urobilinogen,Urine <2.0 mg/dL (<2.0)
--- NOTE | 2017-08-10 18:06 | XR ---
EXAMINATION TYPE: XR abdomen acute w cxr DATE OF EXAM: 08/10/2017 COMPARISON: NONE HISTORY: Abdominal distention and short of breath TECHNIQUE: 4 views including supine and upright abdomen and chest x-ray. FINDINGS: There is blunting of the costophrenic angles. There is poor inspiration. There is no heart failure. T horacic aorta is atheromatous. There is no sign of intestinal obstruction or pneumoperitoneum. Fecal pattern is normal. There are no pathologic calcifications over the kidneys. IMPRESSION: Bilateral pleural effusions and basilar atelectasis. Nonacute abdomen. No free air.
[2017-08-10 19:33] VITALS: BP 128/78; PULSE 74; RESP 18; TEMP 97.8
== END 2017-08-10 19:33 | disposition home or self-care (01) ==
LOC: EC 14:30
DX: R10.9 Unspecified abdominal pain (principal); K70.31 Alcoholic cirrhosis of liver with ascites; R14.0 Abdominal distension (gaseous); R06.02 Shortness of breath; I48.91 Unspecified atrial fibrillation; I10 Essential (primary) hypertension; Z79.01 Long term (current) use of anticoagulants; Z79.899 Other long term (current) drug therapy; Z88.0 Allergy status to penicillin; Z85.828 Personal history of other malignant neoplasm of skin; Z98.890 Other specified postprocedural states
CPT/HCPCS: 36415; 80053; 82140; 82150; 82550; 82553; 83690; 85025; 85610; 85730; 81003; 80320; 87086; 74022; 99285; 96374; 96375; C9113; J2274

== ENCOUNTER 2017-08-11 11:34 | Day surgery (SDC) | payer MEDICARE ==
[2017-08-11 12:12] LABS: Mean Platelet Volume 7.7; Platelet Count 283 k/uL (150-450)
[2017-08-11 12:15] LABS: INR 1.1 (<1.2)
[2017-08-11 12:16] LABS: Prothrombin Time 10.7 sec (9.0-12.0)
[2017-08-11 12:37] VITALS: RESP 14; TEMP 97.9
[2017-08-11] MEDS: ALBUMIN HUMAN 25% 50 ML in EMPTY BAG 1 BAG IVPB SCH ×4 (12:55→13:55)
--- NOTE | 2017-08-11 14:48 | US ---
EXAMINATION TYPE: US paracentesis abd w/image DATE OF EXAM: 08/11/2017 COMPARISON: NONE HISTORY: Ascites. PROCEDURE: Maximal barrier technique was utilized. The skin overlying a suitable pocket of fluid was localized with ultrasound and the overlying skin was prepped and draped. Ultrasound was utilized with sterile technique. Lidocaine was used for local anesthesia and a skin kezia made with a scalpel. Catheter was advanced under direct ultrasound guidance into a suitable pocket of fluid and approximately 9.2 liter s of serous fluid were removed. Catheter was withdrawn and hemostasis achieved. There is no immedia te complication; the patient is discharged in stable condition. IMPRESSION: STATUS POST ULTRASOUND GUIDED PARACENTESIS FOR PALLIATION OF ASCITES. THIS PROCEDURE WA S PERFORMED BY THE UNDERSIGNED.
[2017-08-11 14:58] VITALS: BP 118/70; PULSE 77
== END 2017-08-11 14:50 | disposition home or self-care (01) ==
LOC: RADPROMAIN 11:34
PROVIDERS: ATTEND Internal Medicine
DX: R18.8 Other ascites (principal); I48.0 Paroxysmal atrial fibrillation
CPT/HCPCS: 85049; 85610; 96365; 36415; 49083; P9047

== ENCOUNTER 2017-08-18 11:38 | Day surgery (SDC) | payer MEDICARE ==
[2017-08-18 12:15] VITALS: RESP 20; TEMP 98.4
[2017-08-18 12:32] LABS: INR 1.1 (<1.2); Prothrombin Time 10.6 sec (9.0-12.0)
[2017-08-18 12:36] LABS: Mean Platelet Volume 7.2; Platelet Count 282 k/uL (150-450)
[2017-08-18] MEDS: ALBUMIN HUMAN 25% 50 ML in EMPTY BAG 1 BAG IVPB SCH ×4 (13:33→14:37)
[2017-08-18 15:13] VITALS: BP 130/69; PULSE 70
--- NOTE | 2017-08-18 15:26 | US ---
Therapeutic paracentesis. DATE OF EXAM: 08/18/2017 CLINICAL HISTORY: Ascites The procedure was discussed with the patient. The risks, complications, benefits, and alternatives we re discussed and any questions were answered. Informed consent was obtained. The patient was placed s upine on the ultrasound table and prepped and draped in the usual sterile fashion. All elements of maximal barrier technique were utilized. Under ultrasound guidance, access into the right lower quadrant was obtained, via the paracentesis catheter system and direct ultrasound guidanc e. Approximately 8 liters of straw-colored fluid was removed. The patient was stable throughout the proc edure and remained stable upon discharge from Department of Radiology. IMPRESSION: Successful therapeutic paracentesis under ultrasound guidance.
== END 2017-08-18 15:30 | disposition home or self-care (01) ==
LOC: RADPROMAIN 11:38
PROVIDERS: ATTEND Internal Medicine
DX: R18.8 Other ascites (principal)
CPT/HCPCS: 82565; 85049; 85610; 96365; 36415; 49083; P9047

== ENCOUNTER 2017-08-25 11:22 | Day surgery (SDC) | payer MEDICARE ==
[2017-08-25 11:51] VITALS: RESP 16; TEMP 97.5
[2017-08-25 12:21] LABS: INR 1.1 (<1.2); Prothrombin Time 10.7 sec (9.0-12.0)
[2017-08-25 12:28] LABS: Partial Thromboplastin Time 22.3 sec (22.0-30.0)
[2017-08-25 12:38] LABS: Mean Platelet Volume 7.2; Platelet Count 299 k/uL (150-450)
[2017-08-25] MEDS: ALBUMIN HUMAN 25% 50 ML in EMPTY BAG 1 BAG IVPB SCH ×4 (13:05→13:50)
[2017-08-25 14:16] VITALS: BP 119/66; PULSE 92
--- NOTE | 2017-08-25 15:52 | US ---
EXAMINATION TYPE: US paracentesis abd w/image DATE OF EXAM: 08/25/2017 CLINICAL HISTORY: Recurrent abdominopelvic ascites. TECHNIQUE: The procedure was discussed with the patient. The risks, complications, benefits, and alternatives we re discussed and any questions were answered. Informed consent was obtained. Preprocedural timeout wa s performed. The patient was placed supine on the ultrasound table and prepped and draped in the usua l sterile fashion. All elements of maximal barrier technique were utilized. Under ultrasound guidance, access into the right lower quadrant was obtained, via the paracentesis catheter system and direct ultrasound guidanc e. Approximately 7.8 liters of straw-colored thin ascitic fluid was removed. The patient was stable thro ughout the procedure and remained stable upon discharge from Department of Radiology. IMPRESSION: Successful therapeutic paracentesis under ultrasound guidance with removal of 7.8 L of thin straw-col ored ascitic fluid.
== END 2017-08-25 14:35 | disposition home or self-care (01) ==
LOC: RADPROMAIN 11:22
PROVIDERS: ATTEND Internal Medicine
DX: R18.8 Other ascites (principal)
CPT/HCPCS: 82565; 85049; 85610; 85730; 96365; 49083; P9047

== ENCOUNTER 2017-09-01 11:43 | Day surgery (SDC) | payer MEDICARE ==
[2017-09-01 12:18] VITALS: RESP 20; TEMP 97.6
[2017-09-01 12:18] LABS: Mean Platelet Volume 7.2; Platelet Count 272 k/uL (150-450)
[2017-09-01 12:23] LABS: INR 1.2 (<1.2); Prothrombin Time 11.1 sec (9.0-12.0)
[2017-09-01] MEDS: ALBUMIN HUMAN 25% 50 ML in EMPTY BAG 1 BAG IVPB SCH ×4 (13:04→13:59)
[2017-09-01 14:11] VITALS: BP 132/73; PULSE 90
--- NOTE | 2017-09-01 15:46 | US ---
Therapeutic paracentesis. DATE OF EXAM: 09/01/2017 CLINICAL HISTORY: Ascites The procedure was discussed with the patient. The risks, complications, benefits, and alternatives we re discussed and any questions were answered. Informed consent was obtained. The patient was placed s upine on the ultrasound table and prepped and draped in the usual sterile fashion. All elements of maximal barrier technique were utilized. Under ultrasound guidance, access into the right lower quadrant was obtained, via the paracentesis catheter system and direct ultrasound guidanc e. Approximately 8 liters of straw-colored fluid was removed. The patient was stable throughout the proc edure and remained stable upon discharge from Department of Radiology. IMPRESSION: Successful therapeutic paracentesis under ultrasound guidance.
== END 2017-09-01 14:35 | disposition home or self-care (01) ==
LOC: RADPROMAIN 11:43
PROVIDERS: ATTEND Internal Medicine
DX: R18.8 Other ascites (principal)
CPT/HCPCS: 82565; 85049; 85610; 96365; 36415; 49083; P9047

== ENCOUNTER 2017-09-07 11:45 | Day surgery (SDC) | payer MEDICARE ==
[2017-09-07 12:33] LABS: Mean Platelet Volume 7.2; Platelet Count 345 k/uL (150-450)
[2017-09-07 12:43] LABS: INR 1.1 (<1.2)
[2017-09-07 12:44] LABS: Glucose 97 mg/dL (74-99)
[2017-09-07 12:56] VITALS: TEMP 97.7
[2017-09-07] MEDS: ALBUMIN HUMAN 25% 50 ML in EMPTY BAG 1 BAG IVPB SCH ×4 (13:33→15:01)
[2017-09-07 13:34] LABS: Basophils # (A) 0.1 k/uL (0-0.2); Basophils % (A) 1 %; Eosinophils % (A) 0 %; HCT 38.6 % (39.0-53.0); HGB 12.4 gm/dL (13.0-17.5); Lymphocytes # (A) 0.5 k/uL (1.0-4.8); Lymphocytes % (A) 5 %; MCV 93.7 fL (80.0-100.0); Monocytes # (A) 0.9 k/uL (0-1.0); Monocytes % (A) 10 %; Neutrophils % (A) 83 %; RBC 4.12 m/uL (4.30-5.90); RDW 14.2 % (11.5-15.5); WBC 9.7 k/uL (3.8-10.6)
[2017-09-07 13:50] VITALS: RESP 16
--- NOTE | 2017-09-07 14:42 | US ---
Therapeutic paracentesis. DATE OF EXAM: 09/07/2017 CLINICAL HISTORY: Ascites The procedure was discussed with the patient. The risks, complications, benefits, and alternatives we re discussed and any questions were answered. Informed consent was obtained. The patient was placed s upine on the ultrasound table and prepped and draped in the usual sterile fashion. All elements of maximal barrier technique were utilized. Under ultrasound guidance, access into the right lower quadrant was obtained, via the paracentesis catheter system and direct ultrasound guidanc e. Approximately 6.4 liters of serous fluid was removed. The patient was stable throughout the procedure and remained stable upon discharge from Department of Radiology. IMPRESSION: Successful therapeutic paracentesis under ultrasound guidance.
[2017-09-07 15:04] VITALS: BP 133/73; PULSE 82
== END 2017-09-07 14:55 | disposition home or self-care (01) ==
LOC: RADPROMAIN 11:45
PROVIDERS: ATTEND Internal Medicine
DX: R18.8 Other ascites (principal)
CPT/HCPCS: 82565; 82947; 85025; 85610; 36415; 49083; P9047

== ENCOUNTER 2017-09-14 11:51 | Day surgery (SDC) | payer MEDICARE ==
[2017-09-14 12:29] VITALS: RESP 16; TEMP 97.8
[2017-09-14 12:29] LABS: Mean Platelet Volume 7.1; Platelet Count 430 k/uL (150-450)
[2017-09-14 12:30] LABS: INR 1.2 (<1.2); Prothrombin Time 11.3 sec (9.0-12.0)
[2017-09-14] MEDS: ALBUMIN HUMAN 25% 50 ML in EMPTY BAG 1 BAG IVPB SCH ×4 (13:36→14:21)
[2017-09-14 14:22] VITALS: BP 135/72; PULSE 92
--- NOTE | 2017-09-14 15:17 | US ---
Therapeutic paracentesis. DATE OF EXAM: 09/14/2017 CLINICAL HISTORY: Ascites The procedure was discussed with the patient. The risks, complications, benefits, and alternatives we re discussed and any questions were answered. Informed consent was obtained. The patient was placed s upine on the ultrasound table and prepped and draped in the usual sterile fashion. All elements of maximal barrier technique were utilized. Under ultrasound guidance, access into the left lower quadrant was obtained, via the paracentesis catheter system and direct ultrasound guidance . Approximately 6.125 liters of straw-colored fluid was removed. The patient was stable throughout the procedure and remained stable upon discharge from Department of Radiology. IMPRESSION: Successful therapeutic paracentesis under ultrasound guidance.
== END 2017-09-14 14:57 | disposition home or self-care (01) ==
LOC: RADPROMAIN 11:51
PROVIDERS: ATTEND Internal Medicine
DX: R18.8 Other ascites (principal)
CPT/HCPCS: 82565; 85049; 85610; 49083; P9047

== ENCOUNTER 2017-09-21 11:50 | Day surgery (SDC) | payer MEDICARE ==
[2017-09-21 13:01] LABS: Mean Platelet Volume 7.3; Platelet Count 395 k/uL (150-450)
[2017-09-21 13:15] LABS: Glucose 95 mg/dL (74-99)
[2017-09-21 13:16] LABS: INR 1.3 (<1.2)
[2017-09-21 13:18] VITALS: RESP 16; TEMP 97.1
[2017-09-21] MEDS: ALBUMIN HUMAN 25% 50 ML in EMPTY BAG 1 BAG IVPB SCH ×4 (13:31→14:19)
[2017-09-21 15:51] VITALS: BP 119/69; PULSE 88
--- NOTE | 2017-09-21 15:52 | US ---
EXAMINATION TYPE: US paracentesis abd w/image DATE OF EXAM: 09/21/2017 COMPARISON: NONE HISTORY: Ascites. PROCEDURE: Maximal barrier technique was utilized. The skin overlying a suitable pocket of fluid was localized with ultrasound and the overlying skin was prepped and draped. Ultrasound was utilized with sterile technique. Lidocaine was used for local anesthesia and a skin kezia made with a scalpel. Catheter was advanced under direct ultrasound guidance into a suitable pocket of fluid and approximately 5.3 liter s of serous fluid were removed. Catheter was withdrawn and hemostasis achieved. There is no immedia te complication; the patient is discharged in stable condition. IMPRESSION: STATUS POST ULTRASOUND GUIDED PARACENTESIS FOR PALLIATION OF ASCITES. THIS PROCEDURE WA S PERFORMED BY THE UNDERSIGNED.
== END 2017-09-21 15:00 | disposition home or self-care (01) ==
LOC: RADPROMAIN 11:50
PROVIDERS: ATTEND Internal Medicine
DX: R18.8 Other ascites (principal)
CPT/HCPCS: 82565; 82947; 85049; 85610; 96365; 36415; 49083; P9047

== ENCOUNTER 2017-09-28 11:49 | Day surgery (SDC) | payer MEDICARE ==
[2017-09-28 12:38] LABS: Mean Platelet Volume 7.8; Platelet Count 409 k/uL (150-450)
[2017-09-28 12:41] VITALS: RESP 20; TEMP 97.9
[2017-09-28 12:43] LABS: INR 1.2 (<1.2); Prothrombin Time 11.5 sec (9.0-12.0)
[2017-09-28] MEDS: ALBUMIN HUMAN 25% 50 ML in EMPTY BAG 1 BAG IVPB SCH ×4 (13:55→14:52)
[2017-09-28 14:53] VITALS: BP 109/58; PULSE 89
--- NOTE | 2017-09-28 15:18 | US ---
EXAMINATION TYPE: US paracentesis abd w/image DATE OF EXAM: 09/28/2017 COMPARISON: NONE HISTORY: Ascites. PROCEDURE: Maximal barrier technique was utilized. The skin overlying a suitable pocket of fluid was localized with ultrasound and the overlying skin was prepped and draped. Ultrasound was utilized with sterile technique. Lidocaine was used for local anesthesia and a skin kezia made with a scalpel. Catheter was advanced under direct ultrasound guidance into a suitable pocket of fluid and approximately 4.6 liter s of serous fluid were removed. Catheter was withdrawn and hemostasis achieved. There is no immedia te complication; the patient is discharged in stable condition. IMPRESSION: STATUS POST ULTRASOUND GUIDED PARACENTESIS FOR PALLIATION OF ASCITES. THIS PROCEDURE WA S PERFORMED BY THE UNDERSIGNED.
== END 2017-09-28 13:20 | disposition home or self-care (01) ==
LOC: RADPROMAIN 11:49
PROVIDERS: ATTEND Internal Medicine
DX: R18.8 Other ascites (principal)
CPT/HCPCS: 82565; 85049; 85610; 96365; 36415; 49083; P9047

== ENCOUNTER 2017-10-03 14:03 | Inpatient (IN) | payer MEDICARE ==
[2017-10-03] MEDS ORDERED: SODIUM CHLORIDE 0.9% 500 ML IV STA (14:29)
[2017-10-03 14:49] LABS: Basophils % (A) 0 %; Eosinophils # (A) 0.1 k/uL (0-0.7); Eosinophils % (A) 0 %; HCT 37.8 % (39.0-53.0); HGB 12.1 gm/dL (13.0-17.5); Lymphocytes # (A) 0.6 k/uL (1.0-4.8); Lymphocytes % (A) 4 %; MCH 28.5 pg (25.0-35.0); MCHC 32.2 g/dL (31.0-37.0); Mean Platelet Volume 7.5; Monocytes % (A) 7 %; Neutrophils # (A) 12.6 k/uL (1.3-7.7); Neutrophils % (A) 87 %; Platelet Count 438 k/uL (150-450); RBC 4.26 m/uL (4.30-5.90); RDW 14.8 % (11.5-15.5); WBC 14.5 k/uL (3.8-10.6)
[2017-10-03 14:50] LABS: MCV 88.5 fL (80.0-100.0)
[2017-10-03] MEDS ORDERED: ADENOSINE 3 MG/ML 2 ML VIAL IVP STA (14:51)
[2017-10-03] MEDS: METOPROLOL TARTRATE 5 MG/5 ML VIAL IVP SCH ×4 (14:56→18:47)
[2017-10-03 15:01] LABS: ALT 35 U/L (21-72); AST 60 U/L (17-59); Albumin 3.1 g/dL (3.5-5.0); Alkaline Phosphatase 328 U/L (38-126); Anion Gap 12 mmol/L; Blood Urea Nitrogen 39 mg/dL (9-20); Calcium 8.6 mg/dL (8.4-10.2); Carbon Dioxide 24 mmol/L (22-30); Chloride 101 mmol/L (98-107); Glucose 102 mg/dL (74-99); INR 1.2 (<1.2); Magnesium 2.1 mg/dL (1.6-2.3); Partial Thromboplastin Time 22.6 sec (22.0-30.0); Potassium 4.4 mmol/L (3.5-5.1); Prothrombin Time 11.5 sec (9.0-12.0); Sodium 137 mmol/L (137-145); Total Bilirubin 2.2 mg/dL (0.2-1.3); Total Protein 6.8 g/dL (6.3-8.2)
[2017-10-03] MEDS ORDERED: METOPROLOL TARTRATE 25 MG TAB PO STA (15:05)
--- NOTE | 2017-10-03 15:24 | ED ---
General Adult HPI - General Chief complaint: Recheck/Abnormal Lab/Rx Stated complaint: nausea; dark stools; insomnia; anyi Time Seen by Provider: 10/03/17 14:29 Source: patient Mode of arrival: wheelchair Limitations: no limitations - History of Present Illness Initial comments: 82-year-old male history of atrial fibrillation, and liver cirrhosis with ascites requiring paracentesis presents with generalized weakness and palpitations. Patient denies chest pain. Denies fever or chills. Denies lower extremity swelling. Denies headache. Denies nausea vomiting or diarrhea. Patient's medications have recently been adjusted. He was previously taking Inderal, this medication has been discontinued. Previously anticoagulated, he has stopped this medication recently as well. He does report dark stools. - Related Data Home Medications Medication Instructions Recorded Confirmed Apixaban [Eliquis] 5 mg PO BID 02/29/16 10/03/17 Spironolactone [Aldactone] 50 mg PO BID 11/13/16 10/03/17 Furosemide [Lasix] 20 mg PO DAILY 02/04/17 10/03/17 Allergies Allergy/AdvReac Type Severity Reaction Status Date / Time Penicillins Allergy Rash/Hives Verified 10/03/17 14:32 Review of Systems ROS Statement: Those systems with pertinent positive or pertinent negative responses have been documented in the HPI. ROS Other: All systems not noted in ROS Statement are negative. Past Medical History Past Medical History: Atrial Fibrillation, Cancer, Diabetes Mellitus, Hypertension, Liver Disease, Osteoarthritis (OA) Additional Past Medical History / Comment(s): a-fib - eliquis, skin ca History of Any Multi-Drug Resistant Organisms: None Reported Past Surgical History: No Surgical Hx Reported Additional Past Surgical History / Comment(s): multiple paracentesis, mole removed - skin ca Past Anesthesia/Blood Transfusion Reactions: No Reported Reaction Additional Past Anesthesia/Blood Transfusion Reaction / Comment(s): no past anesthesia/bld transfusion Past Psychological History: No Psychological Hx Reported Smoking Status: Never smoker Past Alcohol Use History: None Reported Past Drug Use History: None Reported - Past Family History Father Family Medical History: No Reported History General Exam Limitations: no limitations General appearance: alert, in no apparent distress Head exam: Present: atraumatic, normocephalic Eye exam: Present: normal appearance, PERRL ENT exam: Present: mucous membranes dry Neck exam: Present: normal inspection. Absent: tenderness, meningismus Respiratory exam: Present: normal lung sounds bilaterally. Absent: respiratory distress, wheezes Cardiovascular Exam: Present: regular rate, tachycardia GI/Abdominal exam: Present: soft, distended. Absent: tenderness, guarding, rebound Rectal exam: Present: normal inspection, normal rectal tone, black stool Extremities exam: Present: normal inspection, normal capillary refill, pedal edema (Trace) Neurological exam: Present: alert, oriented X3, CN II-XII intact. Absent: motor sensory deficit Psychiatric exam: Present: normal affect, normal mood Skin exam: Present: warm, dry, intact. Absent: cyanosis, diaphoretic Course Vital Signs 10/03/17 10/03/17 10/03/17 14:08 14:50 14:52 Temperature 97.8 F Pulse Rate 160 H 150 H 124 H Respiratory 20 18 18 Rate Blood Pressure 99/72 108/67 130/87 O2 Sat by Pulse 99 99 98 Oximetry 10/03/17 10/03/17 14:57 15:49 Temperature Pulse Rate 79 81 Respiratory 18 18 Rate Blood Pressure 113/63 108/68 O2 Sat by Pulse 99 98 Oximetry - Reevaluation(s) Reevaluation #1: 10/03/17 15:00 82-year-old male presenting with weakness and GI bleed, patient is found to be in a wide-complex tachycardia, he is evaluated by Dr. Maldonado in the emergency department, rhythm is thought to be SVT with left bundle, patient does convert with 12 mg of adenosine. He is given metoprolol 2.5 mg and started on 25 mg of metoprolol 3 times a day, he converts to sinus rhythm with initial 2.5 dose of IV metoprolol. EKG Findings - EKG Comments: EKG Findings:: EKG obtained at 1422 shows wide complex tachycardia with left bundle branch rate of 156, QRS duration 124, QTC 525. Repeat EKG at 1501 shows sinus rhythm with first-degree AV block and PVC, there is persistent left bundle rate of 84, SD interval 220, QRS 146, QTC 510 Medical Decision Making - Medical Decision Making Laboratory studies reveal white blood cell count 14.5, hemoglobin stable 12.1, rectal exam reveals melanotic stool which is heme positive. Troponin is mildly elevated 0.031, this is likely secondary to demand ischemia secondary to dysrhythmia. Chest x-ray shows bilateral pleural effusion with no central pulmonary edema. Lactic acidosis 2.6 again likely secondary to hypoperfusion from tachydysrhythmia, creatinine normal. Patient is given Protonix for GI bleed, hemoglobin will be repeated in the morning. He started on metoprolol for rate control. - Lab Data Result diagrams: 10/03/17 14:39 10/03/17 14:39 Lab Results 10/03/17 10/03/17 10/03/17 Range/Units 14:30 14:39 14:39 WBC 14.5 H (3.8-10.6) k/uL RBC 4.26 L (4.30-5.90) m/uL Hgb 12.1 L (13.0-17.5) gm/dL Hct 37.8 L (39.0-53.0) % MCV 88.5 D (80.0-100.0) fL MCH 28.5 (25.0-35.0) pg MCHC 32.2 (31.0-37.0) g/dL RDW 14.8 (11.5-15.5) % Plt Count 438 (150-450) k/uL Neutrophils % 87 % Lymphocytes % 4 % Monocytes % 7 % Eosinophils % 0 % Basophils % 0 % Neutrophils # 12.6 H (1.3-7.7) k/uL Lymphocytes # 0.6 L (1.0-4.8) k/uL Monocytes # 1.0 (0-1.0) k/uL Eosinophils # 0.1 (0-0.7) k/uL Basophils # 0.0 (0-0.2) k/uL PT (9.0-12.0) sec INR (<1.2) APTT (22.0-30.0) sec Sodium (137-145) mmol/L Potassium (3.5-5.1) mmol/L Chloride (98-107) mmol/L Carbon Dioxide (22-30) mmol/L Anion Gap mmol/L BUN (9-20) mg/dL Creatinine (0.66-1.25) mg/dL Est GFR (CKD-EPI)AfAm (>60 ml/min/1.73 sqM) Est GFR (CKD-EPI)NonAf (>60 ml/min/1.73 sqM) Glucose (74-99) mg/dL Plasma Lactic Acid Bruce (0.7-2.0) mmol/L Calcium (8.4-10.2) mg/dL Magnesium (1.6-2.3) mg/dL Total Bilirubin (0.2-1.3) mg/dL AST (17-59) U/L ALT (21-72) U/L Alkaline Phosphatase (38-126) U/L Total Creatine Kinase 42 L (55-170) U/L CK-MB (CK-2) 1.1 (0.0-2.4) ng/mL CK-MB (CK-2) Rel Index 2.6 Troponin I 0.031 (0.000-0.034) ng/mL NT-Pro-B Natriuret Pep pg/mL Total Protein (6.3-8.2) g/dL Albumin (3.5-5.0) g/dL TSH 6.140 H (0.465-4.680) mIU/L Stool Occult Blood (Negative) 10/03/17 10/03/17 10/03/17 Range/Units 14:39 14:39 14:39 WBC (3.8-10.6) k/uL RBC (4.30-5.90) m/uL Hgb (13.0-17.5) gm/dL Hct (39.0-53.0) % MCV (80.0-100.0) fL MCH (25.0-35.0) pg MCHC (31.0-37.0) g/dL RDW (11.5-15.5) % Plt Count (150-450) k/uL Neutrophils % % Lymphocytes % % Monocytes % % Eosinophils % % Basophils % % Neutrophils # (1.3-7.7) k/uL Lymphocytes # (1.0-4.8) k/uL Monocytes # (0-1.0) k/uL Eosinophils # (0-0.7) k/uL Basophils # (0-0.2) k/uL PT 11.5 (9.0-12.0) sec INR 1.2 H (<1.2) APTT 22.6 (22.0-30.0) sec Sodium 137 (137-145) mmol/L Potassium 4.4 (3.5-5.1) mmol/L Chloride 101 (98-107) mmol/L Carbon Dioxide 24 (22-30) mmol/L Anion Gap 12 mmol/L BUN 39 H (9-20) mg/dL Creatinine 0.90 (0.66-1.25) mg/dL Est GFR (CKD-EPI)AfAm >90 (>60 ml/min/1.73 sqM) Est GFR (CKD-EPI)NonAf 79 (>60 ml/min/1.73 sqM) Glucose 102 H (74-99) mg/dL Plasma Lactic Acid Bruce (0.7-2.0) mmol/L Calcium 8.6 (8.4-10.2) mg/dL Magnesium 2.1 (1.6-2.3) mg/dL Total Bilirubin 2.2 H (0.2-1.3) mg/dL AST 60 H (17-59) U/L ALT 35 (21-72) U/L Alkaline Phosphatase 328 H (38-126) U/L Total Creatine Kinase (55-170) U/L CK-MB (CK-2) (0.0-2.4) ng/mL CK-MB (CK-2) Rel Index Troponin I (0.000-0.034) ng/mL NT-Pro-B Natriuret Pep 5400 pg/mL Total Protein 6.8 (6.3-8.2) g/dL Albumin 3.1 L (3.5-5.0) g/dL TSH (0.465-4.680) mIU/L Stool Occult Blood (Negative) 10/03/17 10/03/17 Range/Units 14:39 14:39 WBC (3.8-10.6) k/uL RBC (4.30-5.90) m/uL Hgb (13.0-17.5) gm/dL Hct (39.0-53.0) % MCV (80.0-100.0) fL MCH (25.0-35.0) pg MCHC (31.0-37.0) g/dL RDW (11.5-15.5) % Plt Count (150-450) k/uL Neutrophils % % Lymphocytes % % Monocytes % % Eosinophils % % Basophils % % Neutrophils # (1.3-7.7) k/uL Lymphocytes # (1.0-4.8) k/uL Monocytes # (0-1.0) k/uL Eosinophils # (0-0.7) k/uL Basophils # (0-0.2) k/uL PT (9.0-12.0) sec INR (<1.2) APTT (22.0-30.0) sec Sodium (137-145) mmol/L Potassium (3.5-5.1) mmol/L Chloride (98-107) mmol/L Carbon Dioxide (22-30) mmol/L Anion Gap mmol/L BUN (9-20) mg/dL Creatinine (0.66-1.25) mg/dL Est GFR (CKD-EPI)AfAm (>60 ml/min/1.73 sqM) Est GFR (CKD-EPI)NonAf (>60 ml/min/1.73 sqM) Glucose (74-99) mg/dL Plasma Lactic Acid Bruce 2.6 H* (0.7-2.0) mmol/L Calcium (8.4-10.2) mg/dL Magnesium (1.6-2.3) mg/dL Total Bilirubin (0.2-1.3) mg/dL AST (17-59) U/L ALT (21-72) U/L Alkaline Phosphatase (38-126) U/L Total Creatine Kinase (55-170) U/L CK-MB (CK-2) (0.0-2.4) ng/mL CK-MB (CK-2) Rel Index Troponin I (0.000-0.034) ng/mL NT-Pro-B Natriuret Pep pg/mL Total Protein (6.3-8.2) g/dL Albumin (3.5-5.0) g/dL TSH (0.465-4.680) mIU/L Stool Occult Blood Positive (Negative) Critical Care Time Critical Care Time: Yes Total Critical Care Time: 35 Disposition Clinical Impression: Wide QRS ventricular tachycardia, SVT (supraventricular tachycardia), GI ( gastrointestinal bleed) Disposition: ADMITTED IP TO THIS [facility] Condition: Stable Referrals: Barrett Jeter MD [Primary Care Provider] - 1-2 days Decision to Admit Reason: Admit from EC Decision Date: 10/03/17 Decision Time: 15:55
[2017-10-03 15:30] LABS: Creatine Kinase MB 1.1 ng/mL (0.0-2.4); Troponin I 0.031 ng/mL (0.000-0.034)
--- NOTE | 2017-10-03 15:32 | XR ---
EXAMINATION TYPE: XR chest 1V portable DATE OF EXAM: 10/03/2017 COMPARISON: Prior chest x-ray August 10, 2017 HISTORY: Weakness. TECHNIQUE: Single frontal view of the chest is obtained. FINDINGS: There are persistent small to moderate-sized bilateral pleural effusions and associated co mpressive atelectasis. Upper lungs are clear without pneumothorax. The cardiac silhouette size is wi thin normal limits. The osseous structures are intact. IMPRESSION: Overall stable findings from prior chest x-ray, small to moderate-sized bilateral pleura l effusions with associated compressive atelectasis.
[2017-10-03] MEDS ORDERED: PANTOPRAZOLE 40 MG/10 ML VIAL IVP STA (15:37)
[2017-10-03] MEDS ORDERED: NALOXONE 0.4 MG/ML 1 ML VIAL IV PRN (15:40)
[2017-10-03 16:10] LABS: T4, Free (Free Thyroxine) 1.82 ng/dL (0.78-2.19)
--- NOTE | 2017-10-03 16:23 | P.CRDCN ---
History of Present Illness History of present illness: Patient interviewed and examined. Complains of shortness of breath and distended abdomen and felt very weak for several days and it was found to be in a wide-complex tachycardia with left bundle branch block pattern consistent with supraventricular tachycardia with aberrancy. 12 mg of IV adenosine resulted in termination a properly consistent with SVT. However there was a recurrence in a few minutes and he was then treated with IV metoprolol. Plan is to admit him to the hospital. He also complains of black stools he has cirrhosis of liver with a distended abdomen with ascites. I plan to treat him with oral Inderal in the long run Past Medical History Past Medical History: Atrial Fibrillation, Cancer, Diabetes Mellitus, Hypertension, Liver Disease, Osteoarthritis (OA) Additional Past Medical History / Comment(s): a-fib - eliquis, skin ca History of Any Multi-Drug Resistant Organisms: None Reported Past Surgical History: No Surgical Hx Reported Additional Past Surgical History / Comment(s): multiple paracentesis, mole removed - skin ca Past Anesthesia/Blood Transfusion Reactions: No Reported Reaction Additional Past Anesthesia/Blood Transfusion Reaction / Comment(s): no past anesthesia/bld transfusion Past Psychological History: No Psychological Hx Reported Smoking Status: Never smoker Past Alcohol Use History: None Reported Past Drug Use History: None Reported - Past Family History Father Family Medical History: No Reported History Medications and Allergies Home Medications Medication Instructions Recorded Confirmed Type Apixaban [Eliquis] 5 mg PO BID 02/29/16 10/03/17 History Spironolactone [Aldactone] 50 mg PO BID 11/13/16 10/03/17 History Furosemide [Lasix] 20 mg PO DAILY 02/04/17 10/03/17 History Allergies Allergy/AdvReac Type Severity Reaction Status Date / Time Penicillins Allergy Rash/Hives Verified 10/03/17 14:32 Physical Exam Vitals: Vital Signs Temp Pulse Resp BP Pulse Ox 10/03/17 15:49 81 18 108/68 98 10/03/17 14:57 79 18 113/63 99 10/03/17 14:52 124 H 18 130/87 98 10/03/17 14:50 150 H 18 108/67 99 10/03/17 14:08 97.8 F 160 H 20 99/72 99 Intake and Output 10/03/17 10/03/17 10/03/17 06:59 14:59 22:59 Other: Weight 72.575 kg Patient Weight 10/04/17 07:59 Weight 72.575 kg Results 10/03/17 14:39 10/03/17 14:39 Cardiac Enzymes 10/03/17 10/03/17 Range/Units 14:39 14:39 AST 60 H (17-59) U/L CK-MB (CK-2) 1.1 (0.0-2.4) ng/mL Troponin I 0.031 (0.000-0.034) ng/mL Coagulation 10/03/17 Range/Units 14:39 PT 11.5 (9.0-12.0) sec APTT 22.6 (22.0-30.0) sec CBC 10/03/17 Range/Units 14:39 WBC 14.5 H (3.8-10.6) k/uL RBC 4.26 L (4.30-5.90) m/uL Hgb 12.1 L (13.0-17.5) gm/dL Hct 37.8 L (39.0-53.0) % Plt Count 438 (150-450) k/uL Comprehensive Metabolic Panel 10/03/17 Range/Units 14:39 Sodium 137 (137-145) mmol/L Potassium 4.4 (3.5-5.1) mmol/L Chloride 101 (98-107) mmol/L Carbon Dioxide 24 (22-30) mmol/L BUN 39 H (9-20) mg/dL Creatinine 0.90 (0.66-1.25) mg/dL Glucose 102 H (74-99) mg/dL Calcium 8.6 (8.4-10.2) mg/dL AST 60 H (17-59) U/L ALT 35 (21-72) U/L Alkaline Phosphatase 328 H (38-126) U/L Total Protein 6.8 (6.3-8.2) g/dL Albumin 3.1 L (3.5-5.0) g/dL Current Medications Generic Name Dose Route Start Last Admin Trade Name Freq PRN Reason Stop Dose Admin Metoprolol Tartrate 25 mg 10/03/17 16:00 Lopressor PO TID COLETTE Naloxone HCl 0.2 mg 10/03/17 15:40 Narcan IV Q2M PRN Opioid Reversal Pantoprazole Sodium 40 mg 10/04/17 09:00 Protonix IVP DAILY COLETTE Spironolactone 50 mg 10/03/17 21:00 Aldactone PO BID COLETTE Intake and Output 10/03/17 10/03/17 10/03/17 06:59 14:59 22:59 Other: Weight 72.575 kg Patient Weight 10/04/17 07:59 Weight 72.575 kg 10/03/17 14:39 10/03/17 14:39
[2017-10-03] MEDS: METOPROLOL TARTRATE 25 MG TAB PO SCH ×2 (18:42→21:06)
[2017-10-03 19:36] VITALS: BMI 22.3
--- NOTE | 2017-10-03 20:09 | P.HPIM ---
History of Present Illness Chief complaint Weakness, shortness of breath, dark stools History of present illness The patient is an 82-year-old gentleman who presented earlier to the emergency room. Complaining of weakness and palpitations. Shortness of breath with minimal activities in the house. Also having had passed some melanotic stool earlier today. Denies any chest pain. Patient was found in the emergency room to have a supraventricular tachycardia that responded initially to IV adenosine and later required a second IV treatment with the beta melony metoprolol in the emergency room. Past medical history 1. Patient has a history of liver cirrhosis. He is not aware of any definite underlying cause. He has had recurrent paracentesis to remove ascitic fluid. 2. There is a history of atrial fibrillation for which he has been on anti- coagulation with Eloquis. Patient states he has seen Dr. Marcelino, poultry farm laborer as outpatient. 3. Previous history of hypertension. Apparently at one point he was on Vasotec but was stopped because of his blood pressure being low. No definite history of myocardial infarction. There is some question of possible diabetes on the chart but he is not on any medication and he has lost a lot of weight with his cirrhosis. No history of CVA. Other than the paracentesis patient denies surgeries except for a TURP about 20 years ago. Patient denies taking any aspirin or anti-inflammatory medication. Medications ALLERGIES: Penicillin, rash and hives Home medications: Eloquis, spironolactone 50 mg twice a day Lasix 20 mg daily Review of systems Patient denies any unusual headaches or visual disturbances. No history of falling or syncopal type episodes. He did have some earlier nausea today but generally has not had any vomiting or hematemesis. He did relate one episode of dark stool earlier but is not had any before that or since. Denies any abdominal pain. No unusual urinary difficulties. He does have intermittent leg edema. Social history he denies smoking or any excessive alcohol intake. Lives locally with his . Family history Patient has several brothers that had coronary artery disease and one with a CVA. One sister had cancer. Apparently patient's father had leukemia, and mother of a CVA. Physical examination Patient overall appears to be alert sitting up in bed. In no acute distress. Head is atraumatic. Extraocular movements intact. Does seem mildly icteric Neck is supple without adenopathy, thyromegaly. Lungs clear to auscultation. Heart tones now are regular without murmurs or rubs appreciated Abdomen is protuberant. Ventral hernia noted. Generally nontender. No definitive masses detected. Bowel sounds present. Rectal and genital exam deferred. Grade 1 edema of the lower extremities. Distal pulses diminished. Overall alert. No definite cranial nerve deficits. No asterixis. No focal weakness noted. Laboratory White count 14.5 with hemoglobin 12.1 and a platelet count 438. INR is 1.2 with a PTT of 22.6. Electrolytes unremarkable. Potassium 4.4. BUN of 39 with creatinine of 0.9 giving him a GFR of 79. Blood sugar 102 Lactic acid level II.6 Total bilirubin was 2.2 with an AST of 60 and an ALT of 35. Alk phos is elevated at 328. CK was 42 with troponin 0.031. BNP of 5400. Albumin low at 3.1. TSH was elevated at 6.1 with a normal free T4. Stool for occult blood was positive Chest x-ray was interpreted with small to moderate size bilateral pleural effusions and compressive atelectasis. Initial EKG showed a wide-complex tachycardia which was for the most part regular. Left bundle branch block pattern Subsequent EKG after conversion revealed a sinus rhythm with a first degree AV block and a left bundle branch block pattern. No definitive ischemic changes noted. Impressions 1. Supraventricular tachycardia. Responding in the emergency room to IV adenosine and AV block. Associated with patient symptoms of weakness and shortness of breath. 2. Gastrointestinal bleeding. Likely upper with melanotic stool and occult blood positive. Mild blood loss anemia with hemoglobin of 12.1 and likely acute with normal MCV. Etiology unknown at this time. 3. History of liver cirrhosis. 4. History of atrial fibrillation 5. Elevated lactic acid probably related to the poor cardiac output in light of the tachycardia. 6. Elevated TSH may be related to sick thyroid syndrome. Plans The patient has been admitted. Consult with cardiology. Consult with gastroenterology for the melanotic stool. Eloquis and Lasix on hold at this time. Repeat labs have been ordered for the morning. Patient is nothing by mouth for possible further intervention pending clinical status in the morning. This discussed with patient and nursing staff at bedside this evening. Past Medical History Past Medical History: Atrial Fibrillation, Cancer, Diabetes Mellitus, Hypertension, Liver Disease, Osteoarthritis (OA) Additional Past Medical History / Comment(s): a-fib - eliquis, skin ca History of Any Multi-Drug Resistant Organisms: None Reported Past Surgical History: No Surgical Hx Reported Additional Past Surgical History / Comment(s): multiple paracentesis, mole removed - skin ca Past Anesthesia/Blood Transfusion Reactions: No Reported Reaction Additional Past Anesthesia/Blood Transfusion Reaction / Comment(s): no past anesthesia/bld transfusion Past Psychological History: No Psychological Hx Reported Additional Psychological History / Comment(s): [employer] Smoking Status: Never smoker Past Alcohol Use History: None Reported Past Drug Use History: None Reported - Past Family History Father Family Medical History: No Reported History Medications and Allergies Home Medications Medication Instructions Recorded Confirmed Type Apixaban [Eliquis] 5 mg PO BID 02/29/16 10/03/17 History Spironolactone [Aldactone] 50 mg PO BID 11/13/16 10/03/17 History Furosemide [Lasix] 20 mg PO DAILY 02/04/17 10/03/17 History Allergies Allergy/AdvReac Type Severity Reaction Status Date / Time Penicillins Allergy Rash/Hives Verified 10/03/17 14:32 Physical Exam Vitals: Vital Signs Temp Pulse Pulse Resp BP BP Pulse Ox 10/03/17 18:44 97.4 F L 82 18 126/87 98 10/03/17 17:00 61 18 106/61 98 10/03/17 16:30 72 18 96/55 96 10/03/17 16:25 98 F 67 18 120/56 100 10/03/17 15:49 81 18 108/68 98 10/03/17 14:57 79 18 113/63 99 10/03/17 14:52 124 H 18 130/87 98 10/03/17 14:50 150 H 18 108/67 99 10/03/17 14:08 97.8 F 160 H 20 99/72 99 Intake and Output 10/03/17 10/03/17 10/03/17 06:59 14:59 22:59 Other: Weight 72.575 kg 72.575 kg Patient Weight 10/04/17 07:59 Weight 72.575 kg Results CBC & Chem 7: 10/03/17 14:39 10/03/17 14:39 Labs: Abnormal Lab Results - Last 24 Hours (Table) 10/03/17 10/03/17 10/03/17 Range/Units 14:30 14:39 14:39 WBC 14.5 H (3.8-10.6) k/uL RBC 4.26 L (4.30-5.90) m/uL Hgb 12.1 L (13.0-17.5) gm/dL Hct 37.8 L (39.0-53.0) % Neutrophils # 12.6 H (1.3-7.7) k/uL Lymphocytes # 0.6 L (1.0-4.8) k/uL INR (<1.2) BUN (9-20) mg/dL Glucose (74-99) mg/dL Plasma Lactic Acid Bruce (0.7-2.0) mmol/L Total Bilirubin (0.2-1.3) mg/dL AST (17-59) U/L Alkaline Phosphatase (38-126) U/L Total Creatine Kinase 42 L (55-170) U/L Albumin (3.5-5.0) g/dL TSH 6.140 H (0.465-4.680) mIU/L 10/03/17 10/03/17 10/03/17 Range/Units 14:39 14:39 14:39 WBC (3.8-10.6) k/uL RBC (4.30-5.90) m/uL Hgb (13.0-17.5) gm/dL Hct (39.0-53.0) % Neutrophils # (1.3-7.7) k/uL Lymphocytes # (1.0-4.8) k/uL INR 1.2 H (<1.2) BUN 39 H (9-20) mg/dL Glucose 102 H (74-99) mg/dL Plasma Lactic Acid Bruce 2.6 H* (0.7-2.0) mmol/L Total Bilirubin 2.2 H (0.2-1.3) mg/dL AST 60 H (17-59) U/L Alkaline Phosphatase 328 H (38-126) U/L Total Creatine Kinase (55-170) U/L Albumin 3.1 L (3.5-5.0) g/dL TSH (0.465-4.680) mIU/L Thrombosis Risk Factor Assmnt - Choose All That Apply Each Risk Factor Represents 3 Points: Age 75 years or older Thrombosis Risk Factor Assessment Total Risk Factor Score: 3 Thrombosis Risk Factor Assessment Level: Moderate Risk
[2017-10-03] MEDS: SPIRONOLACTONE 25 MG TAB PO SCH (21:06)
[2017-10-04 07:27] LABS: ALT 40 U/L (21-72); AST 67 U/L (17-59); Albumin 2.4 g/dL (3.5-5.0); Alkaline Phosphatase 261 U/L (38-126); Anion Gap 6 mmol/L; Basophils % (A) 0 %; Blood Urea Nitrogen 38 mg/dL (9-20); Carbon Dioxide 29 mmol/L (22-30); Chloride 102 mmol/L (98-107); Eosinophils % (A) 0 %; Glucose 85 mg/dL (74-99); HCT 31.7 % (39.0-53.0); HGB 10.5 gm/dL (13.0-17.5); Lymphocytes # (A) 0.4 k/uL (1.0-4.8); Lymphocytes % (A) 4 %; MCH 29.4 pg (25.0-35.0); MCHC 33.3 g/dL (31.0-37.0); MCV 88.5 fL (80.0-100.0); Magnesium 2.2 mg/dL (1.6-2.3); Mean Platelet Volume 7.3; Monocytes # (A) 0.7 k/uL (0-1.0); Monocytes % (A) 8 %; Neutrophils # (A) 6.9 k/uL (1.3-7.7); Neutrophils % (A) 85 %; Platelet Count 266 k/uL (150-450); RBC 3.58 m/uL (4.30-5.90); RDW 14.9 % (11.5-15.5); Sodium 137 mmol/L (137-145); Total Bilirubin 1.8 mg/dL (0.2-1.3); Total Protein 5.5 g/dL (6.3-8.2); WBC 8.2 k/uL (3.8-10.6)
[2017-10-04 07:30] LABS: Potassium 3.9 mmol/L (3.5-5.1)
[2017-10-04] MEDS: METOPROLOL TARTRATE 25 MG TAB PO SCH (07:38)
[2017-10-04] MEDS: SPIRONOLACTONE 25 MG TAB PO SCH ×2 (07:38→20:24)
[2017-10-04] MEDS: PANTOPRAZOLE 40 MG/10 ML VIAL IVP SCH (07:38)
[2017-10-04] MEDS: PROPRANOLOL LA 80 MG CAP.SA.24H PO SCH (09:11)
--- NOTE | 2017-10-04 09:38 | CONS ---
CONSULTATION DATE OF CONSULTATION: October 04, 2017. REQUESTING PHYSICIAN: Dr. Jeter. REASON FOR CONSULTATION: History of cirrhosis of the liver and black tarry stools. HISTORY OF PRESENT ILLNESS: The patient is an 82-year-old pleasant white male with history of liver cirrhosis diagnosed about 2 years ago. Refractory ascites requiring paracentesis almost on a weekly basis for the last several months. The patient states that he had a paracentesis last Thursday. He presents to the emergency room with shortness of breath which has been gradually getting worse for the last 1 week duration associated with some weakness and palpitations. Also, he stated that he was having some black tarry stools that started yesterday morning and he had 2 episodes early this morning. He denies any abdominal pain. He reports no nausea, vomiting. Never had similar symptoms in the past. He was noted to have supraventricular tachycardia and he is on IV treatment with beta blockers, which is presently being changed to Inderal orally. The patient denies ever having GI bleed. He reports no NSAID use. No prior history of peptic ulcer disease. He states his abdominal distention has been getting worse. He is scheduled for another paracentesis in 2-3 days. PAST MEDICAL HISTORY: Significant for cirrhosis of the liver diagnosed 2 years ago, etiology unclear as patient does not recall the details, history of atrial fibrillation on Eliquis, currently on hold. MEDICATIONS: Medications at home include: Aldactone, Lasix, and Eliquis. SOCIAL HISTORY: No smoking. No alcohol use. FAMILY HISTORY: Unremarkable. ALLERGIES: PENICILLIN. REVIEW OF SYSTEMS: Cardiopulmonary no chest pain, shortness of breath. GENITOURINARY: No dysuria or hematuria. Musculoskeletal: Unremarkable. Skin unremarkable. Endocrine unremarkable. Psychiatric unremarkable. Neurology unremarkable. ENT vision unremarkable. Constitutional no recent weight loss. No fever, chills, night sweats. PAST SURGICAL HISTORY: TURP 20 years ago. PHYSICAL EXAMINATION: He appears comfortable. No apparent distress. Vital signs stable. Blood pressure is 115/57, pulse 59, temperature 97.4. HEENT examination unremarkable. Conjunctivae pink. Sclerae anicteric. Oral cavity no lesions. Neck: No jugular venous distention or lymph node enlargement. Lungs: Chest was clear to auscultation. HEART: Regular rate and rhythm. ABDOMEN: Soft, it was distended. There was free fluid noted in the abdomen. Extremities: No pedal edema. Skin no rashes. NEUROLOGIC: Alert and oriented x3. No focal deficits. LABS: Yesterday WBC 14.5 and today it is 8.2, hemoglobin 12.1 and today it is 10.5, platelets are 266. INR 1.2. BUN 38, creatinine 0.9, T bilirubin 2.2, AST 60, ALT 35, alkaline phosphatase is 328, albumin 3.1. Stool occult blood was positive. IMPRESSION: 1. This is a patient with history of underlying cirrhosis of the liver of unclear etiology, presents to the hospital with shortness of breath, abdominal distention as well as black-colored stools that started yesterday morning. He has history of atrial fibrillation on Eliquis which has been on hold since yesterday morning. He dropped his hemoglobin from 12-10.9 g/dL. He had 2 black tarry stools this morning. No prior history of gastrointestinal bleed. He denies any NSAID use, possible upper gastrointestinal source of bleeding, possibility of a recent bleed cannot be excluded. 2. Refractory ascites requiring paracentesis on a frequent basis. The last one was about a week ago. 3. Atrial fibrillation on Eliquis, presently on hold. RECOMMENDATIONS: 1. Continue Protonix 40 mg daily. 2. Clear liquid diet. 3. CBC in the morning. 4. We will proceed with an upper endoscopy tomorrow. I discussed with the patient benefits and complications and he is agreeable to it. 5. We will also schedule him for large volume paracentesis during this hospitalization. Thank you for this consultation. MMODL / IJN: [id number] /
--- NOTE | 2017-10-04 11:11 | P.PN ---
Progress Note - Text The patient is a 82-year-old gentleman who presented yesterday and is a patient of Dr. Jeter's for whom I am covering with a supraventricular tachycardia with a rapid rate that was converted in the emergency room with IV adenosine and IV metoprolol. But also has had melanotic stool yesterday and during the night. Occult positive. And the past history of atrial fibrillation and cirrhosis of the liver. Patient has been on Eliquis but this was stopped just prior to coming in to the hospital. Generally this morning patient feels about the same. He denies any chest pain. No unusual shortness of breath. Minimal left lower quadrant abdominal discomfort at times. Vital signs reveal temperature of 97 with a pulse of 79 and respirations 18. Blood pressure 118/74 and he is 99% saturated on 2 L nasal cannula. Lung and heart examination is generally clear. Abdomen is protuberant but nontender. Ventral hernia. Patient does have grade 1 pedal edema bilaterally. Laboratory White count is 8.2 but hemoglobin has dropped to 10.5. Platelet count of 266. Basic metabolic panel unremarkable except for a BUN of 38. Lactic acid level did decrease down to 2.1. Impressions and plans Continue to monitor patient for tachyarrhythmias and we'll await further recommendations regarding medical treatment per cardiology. Follow-up hemoglobins. Patient has been seen by gastroenterology and plans are for upper endoscopy tomorrow. This was discussed with patient along with patient's and daughter that were present this morning.
--- NOTE | 2017-10-04 11:23 | CONS ---
CONSULTATION 82-year-old male patient of Dr. Santana who presented with weakness for the last several days. He was found to be in a wide-complex tachycardia with left bundle branch block type consistent with typical left bundle pattern and SVT with left bundle branch block. He has a baseline left bundle branch block. He was treated with IV adenosine 12 mg and the SVT immediately terminated. However, it recurred once again and therefore he was treated with intravenous metoprolol and then adenosine again. This morning he remains in sinus rhythm. He looks comfortable. He at that time he simply complained of weakness. He denied palpitations, chest discomfort and he was mildly short of breath but although did not state that he was short of breath. PAST HISTORY: Of liver cirrhosis, refractory ascites, requiring paracentesis and complaining of some black tarry stools. He has a history of atrial fibrillation, but this was not atrial fibrillation. This was supraventricular tachycardia, adenosine sensitive. MEDICATIONS: Aldactone, Lasix, and Eliquis at home. Recently, his blood pressure medications were discontinued. SOCIAL HISTORY: No history of smoking or alcohol use. FAMILY HISTORY: Unremarkable. ALLERGIES: To PENICILLIN. REVIEW OF SYSTEMS: No fever, chills, or rigors. No cough or expectoration. No nausea, vomiting, or diarrhea, but he did state he had black stools. He has a distended abdomen. He denied any palpitations. He complained of weakness. PAST SURGICAL HISTORY: TURP 20 years back. EXAMINATION: On examination at this time, he looks quite comfortable. His blood pressure is 118/74 mmHg. Pulse rate is in the 70s. He is afebrile at 97 degrees Fahrenheit. He is breathing is nonlabored. His abdomen is distended but soft. He has an umbilical hernia. Heart sounds S1, S2 are soft. No murmurs or gallops. Extremities are warm. He appears cachectic. IMPRESSION: 1. Supraventricular tachycardia, adenosine sensitive. 2. Supraventricular tachycardia with the left bundle branch block pattern. 3. Underlying left bundle branch block with a mildly prolonged NJ interval. 4. Liver cirrhosis with refractory ascites. SUGGEST: Switch to Inderal LA 80 mg p.o. daily. Watch the NJ interval in sinus rhythm and if necessary, may need to cut back to 60 mg p.o. daily His labs were reviewed and hemoglobin is 10.5. I do not have a TSH level on him. Renal function was normal. MMODL / IJN: [id number] /
[2017-10-05] MEDS: SPIRONOLACTONE 25 MG TAB PO SCH ×2 (07:54→20:26)
[2017-10-05] MEDS: PANTOPRAZOLE 40 MG/10 ML VIAL IVP SCH (08:07)
[2017-10-05] MEDS: SODIUM CHLORIDE 0.9% 1,000 ML IV SCH ×2 (08:09→20:29)
[2017-10-05] MEDS ORDERED: LIDOCAINE 1% INJ 10MG/ML (20 ML MDV) ONE (10:58)
[2017-10-05] MEDS ORDERED: PROPOFOL 10 MG/ML 20 ML VIAL IV ONE (10:58)
[2017-10-05] MEDS ORDERED: IV FLUID CONTINUATION 950 ML IV ONE (11:10)
--- NOTE | 2017-10-05 11:15 | P.PCN ---
Date of Procedure: 10/05/17 Procedure(s) Performed: BRIEF HISTORY: Patient is a 82-year-old, pleasant, 8 male, admitted to the hospital with black tarry stools of 2 days' duration. He has liver cirrhosis diagnosed 3 years ago. His refractory ascites and undergoes gradually paracentesis every 2 weeks on an outpatient basis. He was also noted to have A. fib with rapid ventricular heartrate and was started on Inderal. He was an elective procedure has been on hold for the last 2 days. He scheduled for an upper endoscopy to evaluate further. PROCEDURE PERFORMED: Esophagogastroduodenoscopy with variceal ligation. PREOPERATIVE DIAGNOSIS: Kit upper GI bleed. IV sedation per anesthesia. PROCEDURE: After informed consent was obtained, the patient was brought into the endoscopy unit. IV sedation was administered by Anesthesia under continuous monitoring. Initially the Olympus GIF-140 video endoscope was inserted into the mouth. Esophagus intubated without any difficulty. It was gradually advanced into the stomach and duodenum and carefully examined. The bulb and the second part of the duodenum appeared normal. The scope at this time was withdrawn to the stomach, adequately insufflated with air, and upon careful examination, mucosa of the antrum, body, cardia and the fundus showed changes consistent with portal hypertensive gastropathy but there was no evidence of active bleeding. The scope was then withdrawn into the esophagus. The GE junction was located at 39 cm from the incisors. There were large mid/distal esophageal varices seen with no active bleeding but multiple red elaine markings suspicious for recent source of bleeding. At this time the scope was removed esophageal variceal ligation equipment was introduced and the tip of the scope and esophagus reintubated without any difficulty and was gradually advanced into the distal esophagus. Esophageal variceal ligation was performed in a spiral fashion and total of 5 bands were deployed. She tolerated the procedure well. IMPRESSION: 1. Large mid/distal esophageal nonbleeding varices status post laser ligation as described above. 2. Moderate to severe portal hypertensive gastropathy. RECOMMENDATIONS: The findings of this examination were discussed with the patient as well as a family. He will be continued on Inderal as per cardiology. We'll start him on a full liquid diet and advance as tolerated tomorrow. Repeat CBC in the morning.
[2017-10-05] MEDS: PROPRANOLOL LA 80 MG CAP.SA.24H PO SCH (11:37)
--- NOTE | 2017-10-05 12:33 | P.PN ---
Subjective Patient is doing well. He has had no further episodes of palpitations. He was admitted with supraventricular tachycardia with an underlying left bundle branch block pattern and responded to IV adenosine. Later the tachycardia recurred and responded to IV metoprolol 2.5 mg. He is an underlying left bundle branch block MD interval at the upper limits of normal yesterday started propranolol 80 mg by mouth daily. On examination blood pressures 111/79 mmHg pulse rate is in the 70s, afebrile 97.4F normal respirations lying flat in bed Distended abdomen ascites, hernia Breath sounds are clear no rhonchi no crackles Heart sounds are soft and normal Impression Underlying left bundle branch block pattern on twelve-lead ECG Recurrent SVT, adenosine sensitive Cirrhosis of the liver with refractory ascites, repeated paracentesis needed Suggest Continue spironolactone Reduce the dose of Inderal LA to 60 mg by mouth daily Follow-up with Dr. Bland in about a month Objective - Vital Signs Vital signs: Vital Signs Temp 97.4 F L 10/05/17 04:00 Pulse 100 10/05/17 04:00 Resp 20 10/05/17 04:00 BP 111/79 10/05/17 04:00 Pulse Ox 98 10/05/17 04:00 Intake & Output 10/04/17 10/05/17 10/05/17 18:59 06:59 18:59 Intake Total 360 0 350 Balance 360 0 350 Weight 69.5 kg Intake: IV 350 Oral 360 0 Other: Voiding Method Toilet Toilet # Voids 2 2 - Labs CBC & Chem 7: 10/04/17 06:19 10/04/17 06:19
--- NOTE | 2017-10-05 15:59 | CDI ---
Last Revision, June 2017 Documentation Clarification Form Date: 10/05/17 1400 From: Chiqui Smith RN, CCDS Admit Date: 10/03/2017 3:40:00 PM Patient Name: Tam Levin Visit Number: [id number] ATTENTION: The Clinical Documentation Specialists (CDI) and [facility] Coding Staff appreciate your assistance in clarifying documentation. Please respond to the clarification below the line at the bottom and electronically sign. The CDI & [facility] Coding staff will review the response and follow-up if needed. Please note: Queries are made part of the Legal Health Record. If you have any questions, please contact the author of this message via ITS. Dr. Justin Maldonado Atrial fibrillation is documented in the H&P and Cardiology Consult and requires further specificity. History/Risk Factors: C/O weakness for several days, liver cirrhosis, Atrial Fib, HTN Clinical Indicators: 10/04 Cardiology Consult: "PMH: "There is a history of atrial fibrillation for which he has been on anti- coagulation with Eliquis. He has a history of atrial fibrillation, but this was not atrial fibrillation." EKG/telemetry: SVT adenosine sensitive converted to NSR Treatment: Consults: Cardiology Lopressor 2.35 mg IVP Q 5 m, Lopressor 25mg PO TID Inderal LA 80 mg PO QD In your professional opinion, can you please clarify the type of atrial fibrillation, if known? Chronic/Permanent Paroxysmal Persistent Other, please specify Unable to determine continue to document in your progress notes and discharge summary in order to capture severity of illness and risk of mortality. Include clinical findings that support your diagnosis. Dr. Bland response I have not seen any atrial fibrillation and therefore cannot determine if he had atrial fibrillation in the past please discuss with primary care physician This patient was admitted with SVT not atrial fibrillation MTDD
--- NOTE | 2017-10-05 21:48 | PN ---
PROGRESS NOTE CHIEF COMPLAINT: Re-evaluation. HISTORY OF PRESENT ILLNESS: This 82-year-old gentleman was admitted to the hospital on the weekend with complaints of palpitations and noticing black stool. The patient is on Eliquis. He also has underlying history of cirrhosis of the liver. The patient has history of paroxysmal atrial fibrillation. In the emergency room he was noted to be in SVT. This was converted chemically and the patient has remained in sinus rhythm subsequently. Denies any other associated symptoms. He did have a clearer bowel movement last evening. The patient denies any other symptoms. He does have, as mentioned above, cirrhosis of the liver with significant ascites. Cirrhosis of the liver etiology is unknown. Interestingly, despite his liver failure, his pro times are in the normal range. He does have mild elevated bilirubin. REVIEW OF SYSTEMS: NEURO: Denies any headaches, dizziness. PSYCH: No anxiety. CARDIAC: No chest pain, angina, palpitations. RESPIRATORY: Has shortness of breath, but the oxygen is helping. Does have some chronic mild cough. No hemoptysis. GI: No nausea, vomiting, abdominal pain, diarrhea. : No symptoms of dysuria, hematuria. EXTREMITIES: Denies pain. Does have some mild chronic edema. CONSTITUTIONAL: No fever, chills. PHYSICAL EXAMINATION: Pleasant gentleman, at present in no distress. Vital signs reveal temperature 97, pulse 55, respirations 18, blood pressure 144/78, pulse ox 96% on 2 L. HEENT: Normocephalic. NECK: No JVD. CHEST: Clear to auscultation with decreased air flow at the bases. Patient has dullness to percussion, bilateral bases. ABDOMEN: Protuberant with ascites. Prominent umbilical hernia. Extremities reveal trace edema, lower legs. Neurologically awake, alert, oriented, well-coordinated movements. No hepatic asterixis. LABORATORY ASSESSMENT: with a hemoglobin of 10.5, BUN 38. Plasma lactic acid 2.1, alkaline phosphatase 261, albumin 2.4. Thyroid functions normal. ASSESSMENT: 1. Upper gastrointestinal bleeding, probably variceal. 2. Cirrhosis of the liver, etiology undetermined. 3. History of atrial fibrillation, paroxysmal. 4. Supraventricular tachycardia, resolved. 5. Cachexia of chronic illness. 6. Decreased nutritional status with hypoalbuminemia. 7. Anemia secondary to acute blood loss. PLAN: Continue present medical regimen. Will hydrate the patient, as his BUN is 38, significantly elevated. Patient's prognosis remains guarded. He has bilateral pleural effusions contributing some to his dyspnea on exertion. He may require oxygen upon discharge. The patient is scheduled for an upper endoscopy today. Following that, if things are stable, tomorrow we could schedule him for abdominal paracentesis. The patient's condition was discussed with the patient. Prognosis remains guarded. MMODL / IJN: [id number] /
[2017-10-06 07:04] LABS: Basophils % (A) 0 %; Eosinophils % (A) 0 %; HCT 36.3 % (39.0-53.0); HGB 11.1 gm/dL (13.0-17.5); Hypochromasia Moderate; Lymphocytes # (A) 0.3 k/uL (1.0-4.8); Lymphocytes % (A) 3 %; MCH 28.8 pg (25.0-35.0); MCHC 30.6 g/dL (31.0-37.0); Monocytes % (A) 10 %; Neutrophils # (A) 8.5 k/uL (1.3-7.7); Neutrophils % (A) 85 %; Platelet Count 286 k/uL (150-450); RBC 3.85 m/uL (4.30-5.90); RDW 15.2 % (11.5-15.5)
[2017-10-06 07:17] LABS: Anion Gap 9 mmol/L; Blood Urea Nitrogen 34 mg/dL (9-20); Calcium 8.3 mg/dL (8.4-10.2); Carbon Dioxide 21 mmol/L (22-30); Chloride 108 mmol/L (98-107); Glucose 95 mg/dL (74-99); Potassium 4.7 mmol/L (3.5-5.1); Sodium 138 mmol/L (137-145)
[2017-10-06 07:19] LABS: MCV 94.3 fL (80.0-100.0)
[2017-10-06] MEDS: PANTOPRAZOLE 40 MG/10 ML VIAL IVP SCH (08:07)
[2017-10-06] MEDS: SODIUM CHLORIDE 0.9% 1,000 ML IV SCH ×2 (08:08→23:51)
[2017-10-06] MEDS: SPIRONOLACTONE 25 MG TAB PO SCH ×2 (08:08→20:16)
[2017-10-06] MEDS: PROPRANOLOL LA 80 MG CAP.SA.24H PO SCH (08:08)
--- NOTE | 2017-10-06 10:43 | P.PN ---
Subjective Progress Note Date: 10/06/17 Principal diagnosis: 82-year-old male with a history of cirrhosis with refractory ascites admitted with acute GI bleed melena status post EGD with variceal ligation yesterday with findings of large mid distal esophageal nonbleeding varices and moderate to severe portal hypertensive gastropathy. Scheduled for therapeutic paracentesis today. Denies hematemesis hematochezia melena. Hemoglobin 11.1. Platelet 286. BUN 34. Creatinine 0.8. Tolerating regular diet. Objective - Vital Signs Vital signs: Vital Signs Temp 97.1 F L 10/06/17 08:00 Pulse 61 10/06/17 08:00 Resp 16 10/06/17 08:00 BP 141/87 10/06/17 08:00 Pulse Ox 92 L 10/06/17 08:00 Intake & Output 10/05/17 10/06/17 10/06/17 18:59 06:59 18:59 Intake Total 710 1200 180 Balance 710 1200 180 Weight 72.9 kg Intake: IV 350 1200 Sodium Chloride 0.9% 1, 1200 000 ml @ 75 mls/hr IV . [id number] [facility] Rx#:[id number] Oral 360 180 Other: Voiding Method Toilet Toilet Toilet # Voids 1 1 - Exam General appearance: The patient is alert, oriented, in no acute distress. HET: Head is normocephalic and atraumatic. Pupils are equal and reactive. Oropharynx is clear without lesions. Neck: Supple without lymphadenopathy. Trachea midline. Heart: S1 S2. Regular rate and rhythm. Lungs: No crackles or wheezes are heard. Abdomen: Soft, nontender, distended with ascites with bowel sounds. No peritoneal signs. No palpable organomegaly or masses. Extremities: Normal skin color and turgor. No cyanosis, rash, ulceration, clubbing, or edema. Radial and pedal pulses are 2/4 bilaterally. Neurological: No focal deficits. Strength and sensation are grossly intact. - Labs CBC & Chem 7: 10/06/17 06:20 10/06/17 06:20 Labs: Abnormal Lab Results - Last 24 Hours (Table) 10/06/17 10/06/17 Range/Units 06:20 06:20 RBC 3.85 L (4.30-5.90) m/uL Hgb 11.1 L (13.0-17.5) gm/dL Hct 36.3 L (39.0-53.0) % MCHC 30.6 L (31.0-37.0) g/dL Neutrophils # 8.5 H (1.3-7.7) k/uL Lymphocytes # 0.3 L (1.0-4.8) k/uL Chloride 108 H (98-107) mmol/L Carbon Dioxide 21 L (22-30) mmol/L BUN 34 H (9-20) mg/dL Calcium 8.3 L (8.4-10.2) mg/dL Assessment and Plan (1) GI (gastrointestinal bleed) Narrative/Plan: Component of acute blood loss anemia hemoglobin presently 11.1 without active bleeding. Current Visit: Yes Status: Acute Code(s): K92.2 - GASTROINTESTINAL HEMORRHAGE, UNSPECIFIED SNOMED Code(s): 24363408 (2) Esophageal varices in cirrhosis Current Visit: Yes Status: Acute Code(s): K74.60 - UNSPECIFIED CIRRHOSIS OF LIVER; I85.10 - SECONDARY ESOPHAGEAL VARICES WITHOUT BLEEDING SNOMED Code(s): 932068144 (3) Cirrhosis of liver Current Visit: Yes Status: Acute Code(s): K74.60 - UNSPECIFIED CIRRHOSIS OF LIVER SNOMED Code(s): 76624255 (4) Portal hypertension Current Visit: Yes Status: Acute Code(s): K76.6 - PORTAL HYPERTENSION SNOMED Code(s): 35219675 (5) Ascites Current Visit: Yes Status: Acute Code(s): R18.8 - OTHER ASCITES SNOMED Code(s): 009494579 Plan: 1. Paracentesis. 2. Continue Inderal. 3. Continue Protonix. 4. Healthy heart diet. 5. Continue diuretics. Assessment and plan a care discussed with Dr. Barrientos
--- NOTE | 2017-10-06 10:49 | P.PN ---
Subjective Patient is doing well. Sitting up at the edge of the bed. No further palpitations no chest discomfort Blood pressure 141/87 mmHg afebrile 97.1F, respirations normal pulse rate in the 60s Distended abdomen secondary to ascites Breath sounds are reduced on the at the bases heart sounds are soft no murmurs or gallop Impression SVT, adenosine responsive Underlying left bundle branch block pattern on twelve-lead ECG Cirrhosis of liver with refractory ascites Mildly prolonged NM interval Suggest Continue Inderal 60 mg by mouth daily Objective - Vital Signs Vital signs: Vital Signs Temp 97.1 F L 10/06/17 08:00 Pulse 61 10/06/17 08:00 Resp 16 10/06/17 08:00 BP 141/87 10/06/17 08:00 Pulse Ox 92 L 10/06/17 08:00 Intake & Output 10/05/17 10/06/17 10/06/17 18:59 06:59 18:59 Intake Total 710 1200 180 Balance 710 1200 180 Weight 72.9 kg Intake: IV 350 1200 Sodium Chloride 0.9% 1, 1200 000 ml @ 75 mls/hr IV . [id number] [facility] Rx#:[id number] Oral 360 180 Other: Voiding Method Toilet Toilet Toilet # Voids 1 1 - Labs CBC & Chem 7: 10/06/17 06:20 10/06/17 06:20 Labs: Abnormal Lab Results - Last 24 Hours (Table) 10/06/17 10/06/17 Range/Units 06:20 06:20 RBC 3.85 L (4.30-5.90) m/uL Hgb 11.1 L (13.0-17.5) gm/dL Hct 36.3 L (39.0-53.0) % MCHC 30.6 L (31.0-37.0) g/dL Neutrophils # 8.5 H (1.3-7.7) k/uL Lymphocytes # 0.3 L (1.0-4.8) k/uL Chloride 108 H (98-107) mmol/L Carbon Dioxide 21 L (22-30) mmol/L BUN 34 H (9-20) mg/dL Calcium 8.3 L (8.4-10.2) mg/dL
--- NOTE | 2017-10-06 10:53 | P.PN ---
Progress Note - Text Response to document patient very I have not seen atrial fibrillation unable to determine Please discuss with primary care physician Patient presents with supraventricular tachycardia adenosine sensitive
--- NOTE | 2017-10-06 11:46 | US ---
EXAMINATION TYPE: US abdomen limited DATE OF EXAM: 10/06/2017 COMPARISON: NONE HISTORY: Abdominal distention FINDINGS: There is a moderate amount of ascites. IMPRESSION: 1. A moderate amount of ascites
--- NOTE | 2017-10-06 15:33 | US ---
Therapeutic paracentesis. DATE OF EXAM: 10/06/2017 CLINICAL HISTORY: Ascites The procedure was discussed with the patient. The risks, complications, benefits, and alternatives we re discussed and any questions were answered. Informed consent was obtained. The patient was placed s upine on the ultrasound table and prepped and draped in the usual sterile fashion. All elements of maximal barrier technique were utilized. Under ultrasound guidance, access into the right lower quadrant was obtained, via the paracentesis catheter system and direct ultrasound guidanc e. Approximately 5.3 liters of straw-colored fluid was removed. The patient was stable throughout the pr ocedure and remained stable upon discharge from Department of Radiology. IMPRESSION: Successful therapeutic paracentesis under ultrasound guidance.
--- NOTE | 2017-10-06 18:12 | P.PN ---
Subjective Progress Note Date: 10/06/17 Principal diagnosis: Upper GI bleeding and cirrhosis of the liver 82-year-old gentleman admitted to the hospital with melanotic stool. The patient has a history of cirrhosis of liver unknown etiology. The patient also has had intermittent atrial fibrillation. The patient presented with supraventricular tachycardia. He also has bilateral pleural effusion and does complain of dyspnea on exertion with minimal activity. The patient's effusions are mostly related to the significant ascites. Patient did undergo an upper endoscopy yesterday which revealed varices. These were not bleeding actively but lasered, and patient's continued on Inderal. This is to help both the varices as well as SVT. Patient's general condition discussed with the patient his prognosis is poor to guarded and discussed this with him. He is significantly disabled and cachectic. Advised possible rehab placement. He is going to think this over and discuss with his spouse. We will have his abdominal therapeutic Paracentesis done today. Potential discharge in the next 24-48 hours REVIEW OF SYSTEMS: Neuro: Denies any headaches dizziness. Psych: Denies anxiety depression feels oriented. Cardiac: Denies chest pain and angina palpitations. Respiratory: Denies shortness of breath cough. GI: Denies nausea vomiting or abdominal pain. No diarrhea or constipation, no bowel movement yet. : Denies dysuria hematuria. Extremities: Denies pain. No edema. Skin: Intact. Constitutional: No fever, chills. Objective - Vital Signs Vital signs: Vital Signs Temp 97.3 F L 10/06/17 15:14 Pulse 57 L 10/06/17 15:22 Resp 18 10/06/17 15:22 BP 154/76 10/06/17 15:14 Pulse Ox 99 10/06/17 15:14 Intake & Output 10/05/17 10/06/17 10/06/17 18:59 06:59 18:59 Intake Total 710 1200 180 Balance 710 1200 180 Weight 72.9 kg Intake: IV 350 1200 Sodium Chloride 0.9% 1, 1200 000 ml @ 75 mls/hr IV . [id number] [facility] Rx#:[id number] Oral 360 180 Other: Voiding Method Toilet Toilet Toilet # Voids 1 1 PHYSICAL EXAMINATION: Cooperative, at present in no acute distress. HEENT: Neck supple. No JVD. Chest: Clear to auscultation dullness on percussion bilateral bases Cardiac: Normal S1-S2 no gallops systolic 2/6 left sternal border murmur . Abdomen: Soft and protuberant with ascites, reducible large umbilical hernia with overstretched skinbowel sounds present. Extremities: 1+ edema no tenderness Neurologically: Awake, alert, oriented with well-coordinated movements. No hepatic flaps - Labs CBC & Chem 7: 10/06/17 06:20 10/06/17 06:20 Labs: Abnormal Lab Results - Last 24 Hours (Table) 10/06/17 10/06/17 Range/Units 06:20 06:20 RBC 3.85 L (4.30-5.90) m/uL Hgb 11.1 L (13.0-17.5) gm/dL Hct 36.3 L (39.0-53.0) % MCHC 30.6 L (31.0-37.0) g/dL Neutrophils # 8.5 H (1.3-7.7) k/uL Lymphocytes # 0.3 L (1.0-4.8) k/uL Chloride 108 H (98-107) mmol/L Carbon Dioxide 21 L (22-30) mmol/L BUN 34 H (9-20) mg/dL Calcium 8.3 L (8.4-10.2) mg/dL Assessment and Plan Assessment: ASSESSMENT: 1. Acute upper GI bleeding. 2. Esophageal variceal bleeding. 3. Cirrhosis of liver. 4. Ascites. 5. Supra ventricular Tachycardia resolved. 6. History of paroxysmal atrial fibrillation. 7. Cachexia of chronic liver disease. 8. Anemia secondary to acute blood loss. PLAN: Continue present medical regimen, abdominal therapeutic paracentesis today general condition discussed with patient and plan of care reviewed.
--- NOTE | 2017-10-07 07:29 | P.DS ---
Providers Date of admission: 10/03/17 15:40 Attending physician: Armando Santana Consults: 10/03/17 15:10 Consult Physician Stat Consulting Provider: Justin Maldonado Consult Reason/Comments: A. fib, SVT Do you want consulting provider notified?: Already Contacted 10/03/17 15:41 Consult Physician Routine Consulting Provider: Monie Barrientos Consult Reason/Comments: GI bleed Do you want consulting provider notified?: Yes Primary care physician: [facility] Course: This 82-year-old gentleman was admitted to the facility with melanotic stool and tachycardia. Patient is noted to be in SVT treated in the emergency room back to sinus rhythm. Patient has subsequently stayed in sinus rhythm. He was seen by cardiology. Patient does have a history of intermittent atrial fibrillation. He had been on anticoagulation which has been discontinued. Patient has a history of cirrhosis of the liver of unknown etiology. He has significant portal hypertension and associated ascites. He does get weekly therapeutic abdominal paracentesis. The patient does have associated cachexia related to his chronic disease. Patient following admission has had no further evidence of bleeding he did undergo an EGD which revealed varices as expected. They were lasered. Patient's been doing well at this point is being transferred to nursing facility for rehabilitation due to his generalized ability. Patient does have bilateral pleural effusions as extension of his ascites. He also has a large umbilical hernia with significant thinning of the skin. He is at risk of protrusion and rupture at the umbilicus. Surgical repair is difficult due to the ascites. Patient to continue therapeutic abdominal paracentesis at [facility]. He has a standing order for when necessary paracentesis. At the time discharge patient stable. He was placed on Inderal to help both his SVT and potentially reduce variceal bleeds. Final diagnosis to include 1. Supraventricular tachycardia resolved 2. Upper GI bleeding secondary to esophageal varices. 3. Portal hypertension with esophageal varices and ascites 4. Cirrhosis of the liver of unknown etiology 5. Anemia secondary to acute blood loss 6. History of paroxysmal atrial fibrillation 7. Cachexia secondary to chronic liver disease Patient Condition at Discharge: Stable Plan - Discharge Summary Discharge Rx Participant: No New Discharge Prescriptions: New Pantoprazole [Protonix] 40 mg PO AC-BRKFST tablet. Propranolol LA [Inderal LA] 80 mg PO DAILY cap.sa.24h Continue Spironolactone [Aldactone] 50 mg PO BID Changed Furosemide [Lasix] 20 mg PO Q48H #0 Discontinued Apixaban [Eliquis] 5 mg PO BID Discharge Medication List Spironolactone [Aldactone] 50 mg PO BID 11/13/16 [History] Furosemide [Lasix] 20 mg PO Q48H #0 10/07/17 [Rx] Pantoprazole [Protonix] 40 mg PO AC-BRKFST tablet. 10/07/17 [Rx] Propranolol LA [Inderal LA] 80 mg PO DAILY cap.sa.24h 10/07/17 [Rx] Follow up Appointment(s)/Referral(s): Justin Maldonado MD [STAFF PHYSICIAN] - 6 Weeks Barrett Jeter MD [Primary Care Provider] - 1-2 days Monie Barrientos MD [STAFF PHYSICIAN] - 10/29/17 1:15 pm [facility], [NON-STAFF] - Discharge Disposition: TRANSFER TO SNF/ECF
[2017-10-07] MEDS ORDERED: PANTOPRAZOLE 40 MG TABLET PO SCH (07:30)
[2017-10-07] MEDS: SPIRONOLACTONE 25 MG TAB PO SCH (08:00)
[2017-10-07] MEDS: PROPRANOLOL LA 80 MG CAP.SA.24H PO SCH (08:00)
[2017-10-07] MEDS: SODIUM CHLORIDE 0.9% 1,000 ML IV SCH (08:01)
[2017-10-07 13:03] VITALS: BP 117/57; PULSE 51; RESP 18; TEMP 97.6
== END 2017-10-07 16:51 | DRG 432 ==
LOC: EC 14:03 → 6SEL 15:40
PROVIDERS: ADMIT Internal Medicine; ATTEND Internal Medicine
PROC: 06L38CZ Occlusion of Esophageal Vein with Extraluminal Device, Via Natural or Artificial Opening Endoscopic (ICD-10-PCS; principal; 2017-10-05 07:30)
PROC: 0W9G3ZX Drainage of Peritoneal Cavity, Percutaneous Approach, Diagnostic (ICD-10-PCS; 2017-10-06)
DX: K74.60 Unspecified cirrhosis of liver (principal); I85.11 Secondary esophageal varices with bleeding; J90 Pleural effusion, not elsewhere classified; I48.0 Paroxysmal atrial fibrillation; D62 Acute posthemorrhagic anemia; I47.1 Supraventricular tachycardia; K76.6 Portal hypertension; E88.09 Other disorders of plasma-protein metabolism, not elsewhere classified; R18.8 Other ascites; R64 Cachexia; E11.9 Type 2 diabetes mellitus without complications; I10 Essential (primary) hypertension; I44.0 Atrioventricular block, first degree; I44.7 Left bundle-branch block, unspecified; K31.89 Other diseases of stomach and duodenum; K42.9 Umbilical hernia without obstruction or gangrene; K72.90 Hepatic failure, unspecified without coma; M19.90 Unspecified osteoarthritis, unspecified site; Z79.01 Long term (current) use of anticoagulants; Z79.899 Other long term (current) drug therapy; Z88.0 Allergy status to penicillin; Z85.828 Personal history of other malignant neoplasm of skin; Z82.49 Family history of ischemic heart disease and other diseases of the circulatory system
CPT/HCPCS: 36415; 43255; 49083; 71045; 76705; 80048; 80053; 82105; 82272; 82550; 82553; 83605; 83735; 83880; 84439; 84443; 84484; 85025; 85610; 85730; 88108; 88305; 93005; 94760; 96361; 96374; 96375; 99291

== ENCOUNTER 2017-10-17 10:20 | Inpatient (IN) | payer MEDICARE ==
[2017-10-17] MEDS ORDERED: SPIRONOLACTONE 25 MG TAB PO STA (10:45)
[2017-10-17] MEDS ORDERED: FUROSEMIDE 20 MG TAB PO STA (10:45)
--- NOTE | 2017-10-17 10:48 | ED ---
General Adult HPI - General Chief complaint: Shortness of Breath Stated complaint: SOB; ELEVATED HEART RATE Time Seen by Provider: 10/17/17 10:25 Source: patient, RN notes reviewed Mode of arrival: EMS Limitations: no limitations - History of Present Illness Initial comments: This is a 82-year-old male who presents to the emergency room complaining of difficulty breathing throughout the night. When EMS arrived patient was told that his heart rate was above 160. Patient states he did not feel any palpitations patient denies any chest pain. Patient denies any recent fevers or cough. Patient denies abdominal pain patient denies nausea vomiting diarrhea. Patient states she has a history of atrial fibrillation. EMS did the patient some adenosine and slow the patient's heart rate down to a sinus rhythm. Prior to that his rhythm appears to be a wide complex with an SVT. Currently patient is feeling much better no longer short of breath. Patient also has ascites from cirrhosis of unknown origin - Related Data Home Medications Medication Instructions Recorded Confirmed Spironolactone [Aldactone] 50 mg PO BID 11/13/16 10/17/17 Previous Rx's Medication Instructions Recorded Furosemide [Lasix] 20 mg PO Q48H #0 10/07/17 Allergies Allergy/AdvReac Type Severity Reaction Status Date / Time Penicillins Allergy Rash/Hives Verified 10/17/17 10:54 Review of Systems ROS Statement: Those systems with pertinent positive or pertinent negative responses have been documented in the HPI. ROS Other: All systems not noted in ROS Statement are negative. Past Medical History Past Medical History: Atrial Fibrillation, Cancer, Diabetes Mellitus, Hypertension, Liver Disease, Osteoarthritis (OA) Additional Past Medical History / Comment(s): a-fib - eliquis, skin ca History of Any Multi-Drug Resistant Organisms: None Reported Past Surgical History: No Surgical Hx Reported Additional Past Surgical History / Comment(s): multiple paracentesis, mole removed - skin ca Past Anesthesia/Blood Transfusion Reactions: No Reported Reaction Additional Past Anesthesia/Blood Transfusion Reaction / Comment(s): no past anesthesia/bld transfusion Past Psychological History: No Psychological Hx Reported Smoking Status: Never smoker Past Alcohol Use History: None Reported Past Drug Use History: None Reported - Past Family History Father Family Medical History: No Reported History General Exam - General Exam Comments Initial Comments: GENERAL: Patient is well-developed and well-nourished. Patient is nontoxic and well- hydrated and is in no acute distress. ENT: Neck is soft and supple. No significant lymphadenopathy is noted. Oropharynx is clear. Moist mucous membranes. Neck has full range of motion without eliciting any pain EYES: The sclera were anicteric and conjunctiva were pink and moist. Extraocular movements were intact and pupils were equal round and reactive to light. Eyelids were unremarkable. PULMONARY: Unlabored respirations. Good breath sounds bilaterally. No audible rales rhonchi or wheezing was noted. CARDIOVASCULAR: There is a regular rate and rhythm without any murmurs gallops or rubs. ABDOMEN: Soft and nontender with normal bowel sounds. Abdomen is distended consistent with ascites. There is no palpable pulsatile mass. SKIN: Skin is clear with no lesions or rashes and otherwise unremarkable. NEUROLOGIC: Patient is alert and oriented x3. Cranial nerves II through XII are grossly intact. Motor and sensory are also intact. Normal speech, volume and content. Symmetrical smile. MUSCULOSKELETAL: Normal extremities with adequate strength and full range of motion. LYMPHATICS: No significant lymphadenopathy is noted PSYCHIATRIC: Normal psychiatric evaluation. Limitations: no limitations Course Vital Signs 10/17/17 10/17/17 10/17/17 10:27 11:55 12:41 Temperature 97.0 F L 97 F L 97.0 F L Pulse Rate 89 87 89 Respiratory 20 16 16 Rate Blood Pressure 129/71 119/84 132/86 O2 Sat by Pulse 96 100 100 Oximetry Medical Decision Making - Medical Decision Making EKG shows sinus rhythm at a rate of 90 bpm MO interval is 184 QRS is 118 QT interval 42 QTC is 491. Patient's EKG shows no significant ST segment elevation. Patient's chest x-ray shows increased bilateral pleural effusions. I went back into reevaluate the patient he was not complaining of any pain or any associated cough. Patient states he was even short of breath at this time. Patient's white count is 21,000 with a significant left shift so I started the patient on Levaquin. I spoke with Dr. Arredondo he agreed to admit the patient I consult to cardiology and pulmonology and he agreed with the antibiotics. - Lab Data Result diagrams: 10/17/17 11:50 10/17/17 11:50 Lab Results 10/17/17 10/17/17 10/17/17 Range/Units 11:50 11:50 11:50 WBC 21.5 H (3.8-10.6) k/uL RBC 4.78 (4.30-5.90) m/uL Hgb 13.3 (13.0-17.5) gm/dL Hct 43.0 (39.0-53.0) % MCV 90.0 (80.0-100.0) fL MCH 27.7 (25.0-35.0) pg MCHC 30.8 L (31.0-37.0) g/dL RDW 16.0 H (11.5-15.5) % Plt Count 469 H (150-450) k/uL Neutrophils % 93 % Lymphocytes % 2 % Monocytes % 4 % Eosinophils % 0 % Basophils % 0 % Neutrophils # 19.9 H (1.3-7.7) k/uL Lymphocytes # 0.4 L (1.0-4.8) k/uL Monocytes # 0.9 (0-1.0) k/uL Eosinophils # 0.1 (0-0.7) k/uL Basophils # 0.0 (0-0.2) k/uL Hypochromasia Slight PT (9.0-12.0) sec INR (<1.2) APTT (22.0-30.0) sec Sodium 141 (137-145) mmol/L Potassium 5.2 H (3.5-5.1) mmol/L Chloride 109 H (98-107) mmol/L Carbon Dioxide 22 (22-30) mmol/L Anion Gap 10 mmol/L BUN 37 H (9-20) mg/dL Creatinine 1.10 (0.66-1.25) mg/dL Est GFR (CKD-EPI)AfAm 72 (>60 ml/min/1.73 sqM) Est GFR (CKD-EPI)NonAf 62 (>60 ml/min/1.73 sqM) Glucose 111 H (74-99) mg/dL Calcium 8.2 L (8.4-10.2) mg/dL Magnesium 2.3 (1.6-2.3) mg/dL Total Bilirubin 2.7 H (0.2-1.3) mg/dL AST 45 (17-59) U/L ALT 35 (21-72) U/L Alkaline Phosphatase 390 H (38-126) U/L Total Creatine Kinase 36 L (55-170) U/L CK-MB (CK-2) 1.5 (0.0-2.4) ng/mL CK-MB (CK-2) Rel Index 4.2 Troponin I <0.012 (0.000-0.034) ng/mL NT-Pro-B Natriuret Pep pg/mL Total Protein 6.5 (6.3-8.2) g/dL Albumin 2.5 L (3.5-5.0) g/dL 10/17/17 10/17/17 Range/Units 11:50 11:50 WBC (3.8-10.6) k/uL RBC (4.30-5.90) m/uL Hgb (13.0-17.5) gm/dL Hct (39.0-53.0) % MCV (80.0-100.0) fL MCH (25.0-35.0) pg MCHC (31.0-37.0) g/dL RDW (11.5-15.5) % Plt Count (150-450) k/uL Neutrophils % % Lymphocytes % % Monocytes % % Eosinophils % % Basophils % % Neutrophils # (1.3-7.7) k/uL Lymphocytes # (1.0-4.8) k/uL Monocytes # (0-1.0) k/uL Eosinophils # (0-0.7) k/uL Basophils # (0-0.2) k/uL Hypochromasia PT 11.8 (9.0-12.0) sec INR 1.2 H (<1.2) APTT 22.6 (22.0-30.0) sec Sodium (137-145) mmol/L Potassium (3.5-5.1) mmol/L Chloride (98-107) mmol/L Carbon Dioxide (22-30) mmol/L Anion Gap mmol/L BUN (9-20) mg/dL Creatinine (0.66-1.25) mg/dL Est GFR (CKD-EPI)AfAm (>60 ml/min/1.73 sqM) Est GFR (CKD-EPI)NonAf (>60 ml/min/1.73 sqM) Glucose (74-99) mg/dL Calcium (8.4-10.2) mg/dL Magnesium (1.6-2.3) mg/dL Total Bilirubin (0.2-1.3) mg/dL AST (17-59) U/L ALT (21-72) U/L Alkaline Phosphatase (38-126) U/L Total Creatine Kinase (55-170) U/L CK-MB (CK-2) (0.0-2.4) ng/mL CK-MB (CK-2) Rel Index Troponin I (0.000-0.034) ng/mL NT-Pro-B Natriuret Pep 7470 pg/mL Total Protein (6.3-8.2) g/dL Albumin (3.5-5.0) g/dL Disposition Clinical Impression: Pleural effusion, bilateral, Tachycardia, Leukocytosis Disposition: ADMITTED IP TO THIS HOSP Referrals: Barrett Jeter MD [Primary Care Provider] - 1-2 days Time of Disposition: 13:37
[2017-10-17 12:08] LABS: Basophils % (A) 0 %; Eosinophils # (A) 0.1 k/uL (0-0.7); Eosinophils % (A) 0 %; HGB 13.3 gm/dL (13.0-17.5); Hypochromasia Slight; Lymphocytes # (A) 0.4 k/uL (1.0-4.8); Lymphocytes % (A) 2 %; MCH 27.7 pg (25.0-35.0); MCHC 30.8 g/dL (31.0-37.0); Mean Platelet Volume 7.8; Monocytes # (A) 0.9 k/uL (0-1.0); Monocytes % (A) 4 %; Neutrophils # (A) 19.9 k/uL (1.3-7.7); Neutrophils % (A) 93 %; Platelet Count 469 k/uL (150-450); RBC 4.78 m/uL (4.30-5.90); WBC 21.5 k/uL (3.8-10.6)
[2017-10-17 12:15] LABS: Albumin 2.5 g/dL (3.5-5.0); Calcium 8.2 mg/dL (8.4-10.2); Magnesium 2.3 mg/dL (1.6-2.3); Potassium 5.2 mmol/L (3.5-5.1); Total Bilirubin 2.7 mg/dL (0.2-1.3); Total Protein 6.5 g/dL (6.3-8.2)
[2017-10-17 12:17] LABS: INR 1.2 (<1.2); Partial Thromboplastin Time 22.6 sec (22.0-30.0); Prothrombin Time 11.8 sec (9.0-12.0)
[2017-10-17 12:29] LABS: Creatine Kinase 36 U/L (55-170)
[2017-10-17 12:42] LABS: Creatine Kinase MB 1.5 ng/mL (0.0-2.4); Troponin I <0.012 ng/mL (0.000-0.034)
--- NOTE | 2017-10-17 12:59 | XR ---
EXAMINATION TYPE: XR chest 2V DATE OF EXAM: 10/17/2017 HISTORY: difficulty breathing. REFERENCE: Previous study dated 10/03/2017. FINDINGS: There continue to be bilateral pleural effusions. These may have worsened slightly from pre vious. There is associated atelectatic change at the lung bases. Pulmonary vasculature is mildly prom inent. There is no interstitial change. IMPRESSION: WORSENING BILATERAL EFFUSIONS.
[2017-10-17] MEDS ORDERED: LEVOFLOXACIN 750MG-D5W PMX 750 MG in DEXTROSE/WATER 1 150ML.BAG IVPB STA (13:20)
[2017-10-17] MEDS ORDERED: ONDANSETRON 4 MG/2 ML VIAL IVP STA (13:33)
[2017-10-17] MEDS ORDERED: SODIUM CHLORIDE 0.9% 1,000 ML IV ONE ×2 (13:38→15:22)
[2017-10-17 15:45] LABS: Appearance,Urine Clear (Clear); Bilirubin,Urine Negative (Negative); Blood,Urine Negative (Negative); Color,Urine Yellow; Glucose,Urine (UA) Negative (Negative); Ketones,Urine Negative (Negative); Leukocyte Esterase,Urine Negative (Negative); Nitrite,Urine Negative (Negative); Protein,Urine Negative (Negative); Specific Gravity,Urine 1.015 (1.001-1.035)
[2017-10-17 18:21] VITALS: BMI 23.2
[2017-10-17 18:45] LABS: Creatine Kinase 41 U/L (55-170)
[2017-10-17 18:59] LABS: Creatine Kinase MB 1.7 ng/mL (0.0-2.4); Troponin I <0.012 ng/mL (0.000-0.034)
--- NOTE | 2017-10-17 19:15 | HP ---
HISTORY AND PHYSICAL DATE OF ADMISSION: 10/17/2017. ATTENDING PHYSICIAN: Dr. Jeter This is an 82-year-old white male who is being admitted by me for Dr. Jeter who is his primary care physician and Dr. Jeter is out of town this weekend. I am covering him. CHIEF COMPLAINT: Severe shortness of breath and palpitation and fast heart rate. This is an 82-year-old white male who was brought to the emergency room because he was having extreme difficulty in breathing and he is extremely short of breath and the whole night he was having increasing difficulty in breathing and he also was having a rapid heart rate and palpitation. The EMS was called and he was found to have a heart rate over 160 per minute, and he has a history of paroxysmal atrial fibrillation and the EMS gave some adenosine and his heart rate came down to fairly within normal range. The patient in the emergency room, his chest x-ray showed bilateral pleural effusion and EKG showed rapid heart rate and there was no acute changes. His CBC showed leukocytosis with a WBC count of 21.5, hemoglobin 13.3, and platelet count 460,000. Sodium 141, potassium 5.2, BUN 37, and creatinine 1.1. His bilirubin was slightly elevated which was 2.7 and alkaline phosphatase elevated which was 390. AST and ALT within normal limits. Cardiac enzymes are within normal limits. The troponin was less than 0.012. The patient was admitted to the hospital for further evaluation and treatment. PAST MEDICAL HISTORY: Reveals that he has a history of paroxysmal atrial fibrillation. MEDICATIONS: His current medications include spironolactone 50 mg p.o. b.i.d., Lasix 20 mg p.o. every 4 days. ALLERGIES: He has ALLERGY TO PENICILLIN. FAMILY HISTORY: Positive for lung, COPD, and hypertension. REVIEW OF SYSTEMS: Patient denies any headache. Appetite had been poor lately. He has severe shortness of breath and he denies any chest pain. He has no abdominal pain. He has no polyuria, dysuria. He has no neurological symptoms. PHYSICAL EXAMINATION: Reveals an 82-year-old white male who is chronically ill looking, but he is alert and oriented. There is no jaundice. There is no generalized lymphadenopathy. No petechia or bruises. Pulse 96 per minute, regular. Blood pressure 120/70. Examination of the ENT negative. Neck is supple. Neck veins are distended. Heart is in sinus rhythm. Lungs reveal diminished breath sounds over both bases with a few scattered rhonchi bilaterally. ABDOMEN: Soft and nontender. No mass palpable. Examination of the lower extremities reveal bilateral minimal pitting edema. Neurologic examination does not reveal any localizing signs. IMPRESSION: 1. Bilateral pleural effusion. 2. Congestive heart failure. His BNP is 7470. 3. Hyperkalemia. 4. Tachycardia. 5. Elevated bilirubin and alkaline phosphatase. PLAN: Patient will be admitted to the hospital. Heart will be monitored with telemetry. We will get cardiology consultation and will consult boring machine operator double end with regard to his pleural effusion. As his potassium is high we will hold the Aldactone and monitor his electrolytes. He also has an elevated alkaline phosphatase and bilirubin. We will also get a ultrasound of the liver, gallbladder and pancreas. Overall prognosis is guarded. The diagnosis, prognosis and therapeutic plans were discussed in detail with the patient today. MMODL / IJN: [id number] /
[2017-10-18 01:11] LABS: Creatine Kinase 39 U/L (55-170)
[2017-10-18 01:25] LABS: Creatine Kinase MB 1.5 ng/mL (0.0-2.4); Troponin I <0.012 ng/mL (0.000-0.034)
--- NOTE | 2017-10-18 10:01 | CONS ---
CONSULTATION CHIEF COMPLAINT: Shortness of breath. Tam is an 82-year-old gentleman who was admitted to the hospital with worsening shortness of breath. The patient actually was in the hospital at the beginning of this month with distended abdomen and was feeling very weak. The patient has had runs of wide-complex tachycardia, thought to be secondary to SVT with aberrancy and at that time, converted to sinus with Adenosine. When EMS went to pick him up from home yesterday he again had an SVT and apparently received adenosine and converted back to sinus rhythm. He had another episode and responded to treatment. At the time of my evaluation this morning, he is comfortable at rest. His predominant problem is ascites. The patient has a history of atrial fibrillation and had been on Eliquis, but is not taking it anymore because of the concern with GI bleed. PAST MEDICAL HISTORY: Significant for chronic atrial fibrillation, diabetes, hypertension, liver disease. MEDICATIONS: At home include spironolactone and Lasix. ALLERGIES: ALLERGIC TO PENICILLIN. FAMILY HISTORY: Negative for premature coronary artery disease. SOCIAL HISTORY: Negative for current smoking, ETOH abuse or drug abuse. REVIEW OF SYSTEMS: HEENT is unremarkable. Cardiac as described above. RESPIRATORY: As described above. GI significant for ascites. Genitourinary negative. Allergy none. Skin negative. Musculoskeletal significant for arthralgias. Psychosocial negative. Endocrine negative. Oncological negative. Derm negative. Rest of the system review is not relevant. PHYSICAL EXAM: Patient is afebrile. Heart rate is 90 beats per minute, blood pressure is 139/90, respiratory rate is 18, O2 sat is 99% on 2 L. There is no jugular venous distention. Carotid upstroke is diminished. There is no bruit. Chest exam reveals good air entry bilaterally. Heart exam reveals first and second heart sounds. Systolic murmur at the left lower sternal border. Abdomen is distended and has ascites. Exam of the extremities reveals edema. BNP is elevated at 7470. Potassium is 5.2, creatinine is 1.1. Troponin is negative. His rhythm strip showed that she has had runs of SVT with aberrancy. EKG shows sinus rhythm with intraventricular conduction delay. EKGs in the past showed atrial fibrillation also. An EKG here showed SVT. ASSESSMENT: 1. Paroxysmal supraventricular tachycardia. 2. Ascites with chronic underlying liver disease. PLAN: I am going to start the patient on Toprol. Continue the Lasix that he was on and continue the Aldactone that he was on. I will obtain a 2D echo to evaluate his LV function. I do not see one from last admission. CAMERON / ROBSON: [id number] /
[2017-10-18] MEDS: METOPROLOL SUCCINATE (ER) 25 MG TAB.ER.24H PO SCH (10:09)
[2017-10-18] MEDS: SPIRONOLACTONE 25 MG TAB PO SCH ×2 (10:09→21:58)
[2017-10-18] MEDS ORDERED: IPRATROPIUM-ALBUTEROL 3 ML NEB INHALATION PRN (10:16)
--- NOTE | 2017-10-18 10:16 | P.CNPUL ---
History of Present Illness Consult date: 10/18/17 Reason for consult: dyspnea, hypoxemia, pleural effusion, abnormal CXR/CT Chief complaint: Shortness of breath and elevated heart rate History of present illness: Consult dated 10/18/2017 82-year-old male who presents to the emergency room complaining of increasing shortness of breath. In addition, he was having palpitations and increased heart rate about 150 bpm. The patient denied any chest pain or chest discomfort. He did not have any fever or chills. He did not have any abdominal pain nausea vomiting or diarrhea. In the ER he was found to have atrial fibrillation with RVR. Chest x-ray reveals some cardiomegaly and bilateral pleural effusions. The patient received some adenosine by EMS to send the heart rate down. He was treated medically for newly in the emergency room. Chest x-ray does show evidence of heart failure with bilateral effusions. His N-terminal proBNP was elevated. The patient's past medical history includes atrial fibrillation diabetes hypertension liver disease skin cancer and multiple paracentesis abdominis. The patient denies previous tobacco use. Review of Systems Op a 12 point review of system is positive for shortness of breath and rapid heartbeat with palpitations. The patient also had some orthopnea as well. No chest pain or chest discomfort. No nausea vomiting or diarrhea. No fever or chills. Past Medical History Past Medical History: Atrial Fibrillation, Cancer, Diabetes Mellitus, Hypertension, Liver Disease, Osteoarthritis (OA) Additional Past Medical History / Comment(s): a-fib - eliquis, skin ca. Admit 04/2018 for GIB History of Any Multi-Drug Resistant Organisms: None Reported Past Surgical History: No Surgical Hx Reported Additional Past Surgical History / Comment(s): multiple paracentesis, mole removed - skin ca Past Anesthesia/Blood Transfusion Reactions: No Reported Reaction Additional Past Anesthesia/Blood Transfusion Reaction / Comment(s): no past anesthesia/bld transfusion Past Psychological History: No Psychological Hx Reported Additional Psychological History / Comment(s): [place] Smoking Status: Never smoker Past Alcohol Use History: None Reported Past Drug Use History: None Reported - Past Family History Father Family Medical History: No Reported History Medications and Allergies Home Medications Medication Instructions Recorded Confirmed Type Spironolactone [Aldactone] 50 mg PO BID 11/13/16 10/17/17 History Furosemide [Lasix] 20 mg PO Q48H #0 10/07/17 10/17/17 Rx Allergies Allergy/AdvReac Type Severity Reaction Status Date / Time Penicillins Allergy Rash/Hives Verified 10/17/17 10:54 Physical Exam Osteopathic Statement: *. No significant issues noted on an osteopathic structural exam other than those noted in the History and Physical/Consult. Vitals: Vital Signs Temp Pulse Pulse Resp BP BP BP 10/18/17 08:00 98 18 10/18/17 07:54 96.9 F L 98 18 139/91 10/18/17 04:00 97.0 F L 98 18 154/85 10/18/17 00:00 97.9 F 97 18 127/69 10/17/17 20:00 97.0 F L 100 18 126/73 10/17/17 17:35 96.9 F L 93 20 123/91 10/17/17 17:21 94 10/17/17 17:12 164 H 24 158/85 10/17/17 14:46 98 F 94 16 156/90 10/17/17 14:09 96.8 F L 95 18 139/86 10/17/17 12:41 97.0 F L 89 16 132/86 10/17/17 11:55 97 F L 87 16 119/84 10/17/17 10:27 97.0 F L 89 20 129/71 Pulse Ox 10/18/17 08:00 10/18/17 07:54 99 10/18/17 04:00 98 10/18/17 00:00 96 10/17/17 20:00 97 10/17/17 17:35 97 10/17/17 17:21 10/17/17 17:12 97 10/17/17 14:46 96 10/17/17 14:09 96 10/17/17 12:41 100 10/17/17 11:55 100 10/17/17 10:27 96 Intake and Output 10/17/17 10/18/17 10/18/17 22:59 06:59 14:59 Intake Total 80 Output Total 0 1 Balance 0 -1 80 Intake: IV 40 0.9 @ 20 40 Intake, IV Titration 40 Amount Sodium Chloride 0.9% 1, 40 000 ml @ 75 mls/hr IV . [id number] ONE Rx#:[id number] Output: Urine 0 1 Stool 0 Other: # Voids 0 250 # Bowel Movements 0 Weight 79 kg No acute distress, oriented 3. Nasal O2 in place HEENT examination is grossly unremarkable. Mucous membranes are moist. No oral lesions. Neck supple. Full range of motion. No adenopathy thyromegaly or neck vein distention. Cardiovascular examination reveals irregular rhythm and rate. S1-S2 normal. No S3 or S4. No discernible murmur noted. Heart sounds are distant. Lungs reveal diminished breath sounds particularly at the bases. There is bibasilar crackles. No rhonchi are noted. Breath sounds are equal bilaterally. There is dullness at the bases. Abdomen soft bowel sounds are heard. The abdomen is distended. Extremities are intact. No cyanosis or clubbing. Mild edema noted. Skin is without rash or lesion. Neurologic examination is brief but nonfocal. Results - Laboratory Findings CBC and BMP: 10/17/17 11:50 10/17/17 11:50 PT/INR, D-dimer PT 11.8 sec (9.0-12.0) 10/17/17 11:50 INR 1.2 (<1.2) H 10/17/17 11:50 Abnormal lab findings: Abnormal Labs 10/17/17 10/17/17 10/17/17 11:50 11:50 11:50 WBC 21.5 H MCHC 30.8 L RDW 16.0 H Plt Count 469 H Neutrophils # 19.9 H Lymphocytes # 0.4 L INR Potassium 5.2 H Chloride 109 H BUN 37 H Glucose 111 H Plasma Lactic Acid Bruce Calcium 8.2 L Total Bilirubin 2.7 H Alkaline Phosphatase 390 H Total Creatine Kinase 36 L Albumin 2.5 L 10/17/17 10/17/17 10/17/17 11:50 13:28 18:01 WBC MCHC RDW Plt Count Neutrophils # Lymphocytes # INR 1.2 H Potassium Chloride BUN Glucose Plasma Lactic Acid Bruce 2.8 H* 2.1 H* Calcium Total Bilirubin Alkaline Phosphatase Total Creatine Kinase Albumin 10/17/17 10/18/17 18:01 00:28 WBC MCHC RDW Plt Count Neutrophils # Lymphocytes # INR Potassium Chloride BUN Glucose Plasma Lactic Acid Bruce Calcium Total Bilirubin Alkaline Phosphatase Total Creatine Kinase 41 L 39 L Albumin - Diagnostic Findings Chest x-ray: image reviewed (Labs x-rays a medications are reviewed.) Assessment and Plan Assessment: Assessment Shortness of breath, secondary to atrial fibrillation with RVR and changes of congestive heart failure with bilateral pleural effusions History of atrial fibrillation History of diabetes mellitus History of hypertension Osteoarthritis by history History of ascites, with multiple previous paracentesis abdominis. History of esophageal varices with GI bleed History of portal hypertension Liver cirrhosis, of unclear etiology. Anorexia/cachexia syndrome Plan: Plan dated 10/18/2017 The patient seemed more stable now but apparently he was in the emergency department. Recommend diuretics. The patient does not improve with diuretics, he will need a thoracentesis. Labs x-rays a medications are reviewed. He apparently has a history of pleural effusion and ascites with previous paracentesis abdominis. He also has a history of esophageal varices with GI bleed. His liver cirrhosis apparently is of unclear etiology. We'll continue to follow. Medications labs and x-rays are reviewed. Time with Patient: Greater than 30
[2017-10-18] MEDS: FUROSEMIDE 20 MG TAB PO SCH (12:23)
[2017-10-18] MEDS: IPRATROPIUM-ALBUTEROL 3 ML NEB INHALATION SCH ×2 (13:23→19:40)
[2017-10-18] MEDS ORDERED: LEVOFLOXACIN 750MG-D5W PMX 750 MG in DEXTROSE/WATER 1 150ML.BAG IVPB SCH (14:00)
[2017-10-18 16:40] LABS: Glucose,Whole Blood 182 mg/dL (75-99)
--- NOTE | 2017-10-18 19:04 | PN ---
PROGRESS NOTE DATE OF SERVICE: 10/18/2017 This is an 82-year-old white male who has multiple chronic illness and the patient was admitted this time with severe shortness of breath and general weakness and in the ER he was found to have bilateral pleural effusion and he also has abnormal liver function tests and markedly elevated BNP. The patient was admitted with a diagnosis of acute on chronic congestive heart failure, pleural effusion, chronic obstructive pulmonary disease, and also he has abnormal liver function. The patient was admitted to telemetry. His heart is being monitored with telemetry and he was seen by [facility] in consultation. The patient was also seen by Dr. Pham, electromechanisms design drafter and the patient is being evaluated for thoracentesis. The patient also has history of cirrhosis of the liver as stated by his and he has been receiving paracentesis intermittently. The patient had a elevated bilirubin and alkaline phosphatase. I was planning to do an ultrasound of the liver, pancreas, and gallbladder. However, patient has a longstanding history of cirrhosis and therefore, doing these ultrasound and Dr. Jeter, his primary care physician will be resuming care of this patient starting tomorrow and if it is necessary, Dr. Jeter, will order the ultrasound for further evaluation of the abdominal liver function. Overall prognosis is guarded. The diagnosis, prognosis and therapeutic plans were discussed in detail with the patient and also with the patient and today. MMARISTEOL / SEMAJN: [id number] /
[2017-10-19] MEDS ORDERED: NITROGLYCERIN SL TABS 0.4 MG TAB SUBLINGUAL ONE (05:18)
[2017-10-19] MEDS ORDERED: ADENOSINE 3 MG/ML 2 ML VIAL IVP ONE (05:31)
[2017-10-19] MEDS ORDERED: NITROGLYCERIN SL TABS 0.4 MG TAB SUBLINGUAL STA (05:49)
[2017-10-19] MEDS: SPIRONOLACTONE 25 MG TAB PO SCH ×2 (07:39→20:50)
[2017-10-19] MEDS: METOPROLOL SUCCINATE (ER) 25 MG TAB.ER.24H PO SCH (07:39)
[2017-10-19] MEDS ORDERED: DEXTROSE 5% IN WATER 100 ML with AMIODARONE 150 MG IV ONE (07:47)
[2017-10-19] MEDS ORDERED: AMIODARONE 450 MG in DEXTROSE 5% IN WATER 250 ML IV SCH ×2 (08:00)
[2017-10-19] MEDS: IPRATROPIUM-ALBUTEROL 3 ML NEB INHALATION SCH ×3 (08:33→18:51)
[2017-10-19] MEDS: LISINOPRIL 10 MG TAB PO SCH (09:07)
[2017-10-19] MEDS: PROPRANOLOL LA 80 MG CAP.SA.24H PO SCH (09:07)
--- NOTE | 2017-10-19 12:59 | P.PN ---
Subjective Progress Note Date: 10/19/17 Principal diagnosis: SVT This is a pleasant 82-year-old gentleman admitted to the hospital primarily with symptoms of progressively worsening shortness of breath. Patient was noted to be in the hospital earlier this month with ascites, he was noted at that time to have runs of supraventricular tachycardia, converted with adenosine. On this admission again patient was noted to be in supraventricular tachycardia and was administered adenosine, converted back to normal sinus rhythm. Patient also has history of paroxysmal atrial fibrillation. This morning around 5 AM, patient again went into supraventricular tachycardia and was given adenosine with conversion to normal sinus rhythm. At the time of our examination this morning fibrillation with rapid ventricular response, initially the thought was to start the patient on amiodarone, but because of his liver issues and ascites issues, this was deferred. This metoprolol was discontinued and patient was put back on Inderal which was initiated on this most recent admission. Examination At the time of my exaination this morning, patient did complain of feeling short of breath. He is noted on his chest x- ray to have bilateral pleural effusions. Objective - Vital Signs Vital signs: Vital Signs Temp 96.9 F L 10/19/17 12:00 Pulse 72 10/19/17 12:00 Resp 16 10/19/17 12:00 BP 93/52 10/19/17 12:00 Pulse Ox 98 10/19/17 12:00 Intake & Output 10/18/17 10/19/17 10/19/17 18:59 06:59 18:59 Intake Total 316 775 Output Total 200 300 0 Balance 116 -300 775 Weight 81.5 kg Intake: IV 40 60 0.9 @ 20 40 60 Intake, IV Titration 40 135 Amount Amiodarone 450 mg In 35 Dextrose 5% in Water 250 ml @ 1 MG/MIN 34.53 mls/ hr IV .[id number] [facility] Rx#: [id number] Dextrose 5% in Water 100 100 ml @ 618 mls/hr IV .Q10M ONE with Amiodarone 150 mg Rx#:[id number] Sodium Chloride 0.9% 1, 40 000 ml @ 75 mls/hr IV . [id number] ONE Rx#:[id number] Oral 236 580 Output: Urine 200 300 Stool 0 0 Other: Voiding Method Urinal Urinal - Exam PHYSICAL EXAMINATION: HEENT: Head is atraumatic, normocephalic. Pupils equal, round. Neck is supple. There is no elevated jugular venous pressure. HEART EXAMINATION: Heart S1 and S2 irregularly irregular a systolic murmur is heard. CHEST EXAMINATION: Lungs are clear to with with diminished air entry to bilateral bases . ABDOMEN: Soft, nontender. Bowel sounds are heard. No organomegaly noted. EXTREMITIES: 2+ peripheral pulses with no evidence of peripheral edema and no calf tenderness noted. NEUROLOGIC patient is awake, alert and oriented -3. . - Labs CBC & Chem 7: 10/17/17 11:50 10/17/17 11:50 Labs: Abnormal Lab Results - Last 24 Hours (Table) 10/18/17 Range/Units 16:37 POC Glucose (mg/dL) 182 H (75-99) mg/dL Microbiology - Last 24 Hours (Table) 10/17/17 13:24 Blood Culture - Preliminary Blood No Growth after 24 hours Assessment and Plan Plan: Assessment and plan #1 paroxysmal supraventricular tachycardia #2 chronic ascites with underlying chronic liver disease. #3 chronic persistent atrial fibrillation #4 diabetes #5 hypertension Plan We will let discontinue the metoprolol and change the patient over to Inderal 80 mg daily. Patient is not a candidate for anticoagulation because of a GI bleed. If he converts to normal sinus rhythm patient may be a candidate for SVT ablation down the road. DNP note has been reviewed, I agree with a documented findings and plan of care. Patient was seen and examined.
--- NOTE | 2017-10-19 16:33 | P.PN ---
Subjective Progress Note Date: 10/19/17 Principal diagnosis: Dyspnea secondary to bilateral pleural effusions, related to liver cirrhosis, and congestive heart failure. Consult dated 10/18/2017 82-year-old male who presents to the emergency room complaining of increasing shortness of breath. In addition, he was having palpitations and increased heart rate about 150 bpm. The patient denied any chest pain or chest discomfort. He did not have any fever or chills. He did not have any abdominal pain nausea vomiting or diarrhea. In the ER he was found to have atrial fibrillation with RVR. Chest x-ray reveals some cardiomegaly and bilateral pleural effusions. The patient received some adenosine by EMS to send the heart rate down. He was treated medically for newly in the emergency room. Chest x-ray does show evidence of heart failure with bilateral effusions. His N-terminal proBNP was elevated. The patient's past medical history includes atrial fibrillation diabetes hypertension liver disease skin cancer and multiple paracentesis abdominis. The patient denies previous tobacco use. On 10/19/2016 patient seen in follow-up on selective care unit. She is resting in bed, states he does feel dyspneic even at rest. He had an episode of SVT this morning, was given a dose of adenosine after which she converted to normal sinus rhythm. He remains on 2 L per nasal cannula with O2 sat 97%. Currently in sinus bradycardia with a rate of 55 BPM. Afebrile. Patient's is at the bedside, states patient has weekly paracentesis, and he was acting scheduled for one for this morning. We consulted interventional radiology for ultrasound-guided paracentesis today, patient usually has 10-11 L removed on a regular basis. 6 L removed today, however paracentesis culture was not collected at the beginning of the procedure, and therefore specimen could not be sent down for a culture. We will give the patient 50 g of 25% albumin, and start patient on Rocephin. Continue with current medical treatment. Objective - Vital Signs Vital signs: Vital Signs Temp 96.9 F L 10/19/17 12:00 Pulse 55 L 10/19/17 16:08 Resp 16 10/19/17 16:08 BP 94/54 10/19/17 16:08 Pulse Ox 97 10/19/17 16:08 Intake & Output 10/18/17 10/19/17 10/19/17 18:59 06:59 18:59 Intake Total 316 1033 Output Total 200 300 0 Balance 116 -300 1033 Weight 81.5 kg Intake: IV 40 60 0.9 @ 20 40 60 Intake, IV Titration 40 135 Amount Amiodarone 450 mg In 35 Dextrose 5% in Water 250 ml @ 1 MG/MIN 34.53 mls/ hr IV .Q7H31M [facility] Rx#: [id number] Dextrose 5% in Water 100 100 ml @ 618 mls/hr IV .Q10M ONE with Amiodarone 150 mg Rx#:[id number] Sodium Chloride 0.9% 1, 40 000 ml @ 75 mls/hr IV . [id number] ONE Rx#:[id number] Oral 236 838 Output: Urine 200 300 Stool 0 0 Other: Voiding Method Urinal Urinal - Exam No acute distress, oriented 3. Nasal O2 in place HEENT examination is grossly unremarkable. Mucous membranes are moist. No oral lesions. Neck supple. Full range of motion. No adenopathy thyromegaly or neck vein distention. Cardiovascular examination reveals irregular rhythm and rate. S1-S2 normal. No S3 or S4. No discernible murmur noted. Heart sounds are distant. Lungs reveal diminished breath sounds particularly at the bases, with bibasilar crackles. No rhonchi are noted. Breath sounds are equal bilaterally. There is dullness at the bases. Abdomen soft bowel sounds are heard. The abdomen is distended. Extremities are intact. No cyanosis or clubbing. Mild edema noted. Skin is without rash or lesion. Neurologic examination is brief but nonfocal. - Labs CBC & Chem 7: 10/17/17 11:50 10/17/17 11:50 Labs: Abnormal Lab Results - Last 24 Hours (Table) 10/18/17 Range/Units 16:37 POC Glucose (mg/dL) 182 H (75-99) mg/dL Microbiology - Last 24 Hours (Table) 10/17/17 13:24 Blood Culture - Preliminary Blood No Growth after 48 hours Assessment and Plan Plan: Assessment: Bilateral pleural effusions, in a the patient with liver cirrhosis and chronic ascites, and weekly paracentesis. History of atrial fibrillation History of diabetes mellitus History of hypertension Osteoarthritis by history History of ascites, with multiple previous paracentesis abdominis. History of esophageal varices with GI bleed History of portal hypertension Liver cirrhosis, of unclear etiology. Anorexia/cachexia syndrome Plan: Patient had ultrasound-guided paracentesis, and 6.4 L of ascitic fluid was removed. Unfortunately specimen could not be sent down for culture as it was not collected in the sterile receptacle. Patient will be started on IV Rocephin , and we will give 50 gm of 25% albumin. Continue with oral Lasix, lisinopril, Bactrim I performed a history & physical examination of the patient and discussed their management with my nurse practitioner, Elise Tompkins. I reviewed the nurse practitioner's note and agree with the documented findings and plan of care. Lung sounds are diminished at the bases with a few scattered rales. The findings and the impression was discussed with the patient. I attest to the documentation by the nurse practitioner. Time with Patient: Less than 30
[2017-10-19] MEDS: ALBUMIN HUMAN 25% 50 ML in EMPTY BAG 1 BAG IVPB SCH ×2 (18:04→18:34)
[2017-10-19] MEDS: cefTRIAXone IN SWFI 1,000 MG/10 ML SYRINGE IVP SCH (20:51)
--- NOTE | 2017-10-19 23:23 | PN ---
PROGRESS NOTE CHIEF COMPLAINT: Re-evaluation. HISTORY OF PRESENT ILLNESS: This is an elderly gentleman with chronic liver disease with portal hypertension. The patient recently had upper GI bleeding. No evidence of active bleeding. Patient does have esophageal varices. The patient was admitted to the hospital because of shortness of breath and SVT. He does have chronic bilateral pleural effusions basically related to the significant abdominal ascites. The patient denies any other associated symptoms of chest pain. Last night the patient did have another episode of SVT. The patient has been placed on amiodarone. REVIEW OF SYSTEMS: NEURO: Denies any headaches or dizziness. PSYCH: No anxiety. CARDIAC: Denies chest pain, angina, palpitation. RESPIRATORY: Some shortness of breath. No cough. No hemoptysis. GI: No nausea, vomiting, abdominal pain. Does have abdominal protrusion. : No symptoms of dysuria or hematuria. Does have increase some incontinence. EXTREMITIES: No pain. Does have edema. CONSTITUTIONAL: No fever or chills. PHYSICAL EXAMINATION: Chronically ill-appearing, 82-year-old gentleman at present in no distress. VITALS: Temperature 96, pulse 72, respirations 16, blood pressure was 145/79 earlier and 101/58 at repeat. The patient's heart rate was 149. HEENT: Normocephalic. NECK: Supple. No JVD. CHEST EXAMINATION: Dullness to percussion bilateral bases. Decreased air flow. CARDIAC: Distant heart sounds, S1, S2 with no gallops. Irregular rhythm. Systolic murmur 2/6 at the apex. ABDOMEN: Soft. Bowel sounds present, protuberant with ascites. The patient has a protuberant umbilical hernia. EXTREMITIES: Reveal edema. NEUROLOGIC: Awake, alert, oriented to place and person. Moves both upper extremities and lower extremities adequately. No hepatic plaque flaps/asterixis. LABORATORY ASSESSMENT: Glucose of 182. ASSESSMENT: 1. Supraventricular tachycardia/atrial fibrillation with rapid ventricular rate. 2. Bilateral pleural effusions. 3. Portal hypertension with ascites. 4. History of hypertension. 5. Debility. 6. Cough. 7. Bilateral pleural effusions. PLAN: Continue present medical regimen. The patient has been placed on amiodarone. We will plan on abdominal paracentesis tomorrow for relief of pressure. The patient's general condition is discussed with the patient. Prognosis is guarded. The patient's called me today saying that she made arrangements for the patient to start having hospice services at home and she will be taking him home. I will discuss this with the patient tomorrow and make sure the patient understands what it is. The patient's prognosis remains guarded and poor. CAMERON / ROBSON: [id number] /
[2017-10-20 06:11] LABS: Hypochromasia Slight; MCH 28.9 pg (25.0-35.0); MCHC 32.4 g/dL (31.0-37.0); MCV 89.2 fL (80.0-100.0); Mean Platelet Volume 7.5; Platelet Count 217 k/uL (150-450); RBC 3.81 m/uL (4.30-5.90); RDW 15.9 % (11.5-15.5); WBC 13.1 k/uL (3.8-10.6)
[2017-10-20 06:27] LABS: Calcium 8.1 mg/dL (8.4-10.2); Potassium 4.6 mmol/L (3.5-5.1)
[2017-10-20] MEDS: IPRATROPIUM-ALBUTEROL 3 ML NEB INHALATION SCH ×3 (08:11→19:27)
--- NOTE | 2017-10-20 08:19 | US ---
EXAMINATION TYPE: US paracentesis abd w/image DATE OF EXAM: 10/19/2017 COMPARISON: NONE HISTORY: Ascites. PROCEDURE: Maximal barrier technique was utilized. The skin overlying a suitable pocket of fluid was localized with ultrasound and the overlying skin was prepped and draped. Ultrasound was utilized with sterile technique. Lidocaine was used for local anesthesia and a skin kezia made with a scalpel. Catheter was advanced under direct ultrasound guidance into a suitable pocket of fluid and approximately 6.4 liter s of serous fluid were removed. Catheter was withdrawn and hemostasis achieved. There is no immedia te complication; the patient is discharged in stable condition. IMPRESSION: STATUS POST ULTRASOUND GUIDED PARACENTESIS FOR PALLIATION OF ASCITES. THIS PROCEDURE WA S PERFORMED BY THE UNDERSIGNED.
[2017-10-20] MEDS: LISINOPRIL 10 MG TAB PO SCH (09:06)
[2017-10-20] MEDS: PROPRANOLOL LA 80 MG CAP.SA.24H PO SCH (09:06)
[2017-10-20] MEDS: FUROSEMIDE 20 MG TAB PO SCH (09:06)
[2017-10-20] MEDS: SPIRONOLACTONE 25 MG TAB PO SCH ×3 (09:06→22:48)
[2017-10-20] MEDS: cefTRIAXone IN SWFI 1,000 MG/10 ML SYRINGE IVP SCH (09:11)
--- NOTE | 2017-10-20 13:29 | P.PN ---
Subjective Progress Note Date: 10/20/17 Principal diagnosis: Dyspnea secondary to bilateral pleural effusions, related to liver cirrhosis, and congestive heart failure. Consult dated 10/18/2017 82-year-old male who presents to the emergency room complaining of increasing shortness of breath. In addition, he was having palpitations and increased heart rate about 150 bpm. The patient denied any chest pain or chest discomfort. He did not have any fever or chills. He did not have any abdominal pain nausea vomiting or diarrhea. In the ER he was found to have atrial fibrillation with RVR. Chest x-ray reveals some cardiomegaly and bilateral pleural effusions. The patient received some adenosine by EMS to send the heart rate down. He was treated medically for newly in the emergency room. Chest x-ray does show evidence of heart failure with bilateral effusions. His N-terminal proBNP was elevated. The patient's past medical history includes atrial fibrillation diabetes hypertension liver disease skin cancer and multiple paracentesis abdominis. The patient denies previous tobacco use. On 10/19/2016 patient seen in follow-up on selective care unit. She is resting in bed, states he does feel dyspneic even at rest. He had an episode of SVT this morning, was given a dose of adenosine after which she converted to normal sinus rhythm. He remains on 2 L per nasal cannula with O2 sat 97%. Currently in sinus bradycardia with a rate of 55 BPM. Afebrile. Patient's is at the bedside, states patient has weekly paracentesis, and he was acting scheduled for one for this morning. We consulted interventional radiology for ultrasound-guided paracentesis today, patient usually has 10-11 L removed on a regular basis. 6 L removed today, however paracentesis culture was not collected at the beginning of the procedure, and therefore specimen could not be sent down for a culture. We will give the patient 50 g of 25% albumin, and start patient on Rocephin. Continue with current medical treatment. On on 10/20/2017 patient seen in follow-up. He is status post paracentesis on 10/19/2017 with removal of 6.4 L of ascitic fluid. He tolerated the procedure well, today he states his breathing is easier, his abdomen is less distended. She remains on 2 L per nasal cannula with O2 sat at 93%. He is afebrile, hemodynamically stable, he has had no further episodes of SVT. Yesterday we started IV Rocephin empirically, unfortunately the ascites fluid could not be sent down for culture, as it was not collected into sterile receptacle. On today's blood work, patient's WBC is trending down, and is down to 13.1 from 21.5, serum sodium is 135, BUN is 49, and creatinine is 1.10. We will obtain a repeat chest x-ray today, to evaluate for residual pleural effusions. But overall patient reports his dyspnea to be improved. Objective - Vital Signs Vital signs: Vital Signs Temp 97.0 F L 10/20/17 11:05 Pulse 54 L 10/20/17 11:24 Resp 16 10/20/17 11:05 BP 93/56 10/20/17 11:05 Pulse Ox 93 L 10/20/17 11:05 Intake & Output 10/19/17 10/20/17 10/20/17 18:59 06:59 18:59 Intake Total 1593 170 326 Output Total 0 200 Balance 1593 -30 326 Weight 71.3 kg Intake: IV 220 170 0.9 @ 20 220 170 Intake, IV Titration 235 Amount Albumin Human 25% 50 ml 100 In Empty Bag 1 bag @ 100 mls/hr IVPB Q1H [facility] Rx#: [id number] Amiodarone 450 mg In 35 Dextrose 5% in Water 250 ml @ 1 MG/MIN 34.53 mls/ hr IV .Q7H31M [facility] Rx#: [id number] Dextrose 5% in Water 100 100 ml @ 618 mls/hr IV .Q10M ONE with Amiodarone 150 mg Rx#:[id number] Oral 1138 326 Output: Urine 200 Stool 0 Other: Voiding Method Urinal Urinal Urinal - Exam No acute distress, oriented 3. Nasal O2 in place HEENT examination is grossly unremarkable. Mucous membranes are moist. No oral lesions. Neck supple. Full range of motion. No adenopathy thyromegaly or neck vein distention. Cardiovascular examination reveals irregular rhythm and rate. S1-S2 normal. No S3 or S4. No discernible murmur noted. Heart sounds are distant. Lungs reveal diminished breath sounds at the bases, with no crackles.. No rhonchi are noted. Breath sounds are equal bilaterally. Abdomen soft bowel sounds are heard. The abdomen is less distended, soft, nontender. Patient is status post paracentesis with removal of 6.4 L of ascites fluid on 10/19/2017 Extremities are intact. No cyanosis or clubbing. Mild edema noted. Skin is without rash or lesion. Neurologic examination is brief but nonfocal. - Labs CBC & Chem 7: 10/20/17 05:44 10/20/17 05:44 Labs: Abnormal Lab Results - Last 24 Hours (Table) 10/20/17 10/20/17 Range/Units 05:44 05:44 WBC 13.1 H (3.8-10.6) k/uL RBC 3.81 L (4.30-5.90) m/uL Hgb 11.0 L (13.0-17.5) gm/dL Hct 34.0 L (39.0-53.0) % RDW 15.9 H (11.5-15.5) % Sodium 135 L (137-145) mmol/L Carbon Dioxide 21 L (22-30) mmol/L BUN 49 H (9-20) mg/dL Calcium 8.1 L (8.4-10.2) mg/dL Microbiology - Last 24 Hours (Table) 10/17/17 13:24 Blood Culture - Preliminary Blood No Growth after 48 hours Assessment and Plan Plan: Assessment: Bilateral pleural effusions, in a the patient with liver cirrhosis and chronic ascites, and weekly paracentesis. History of atrial fibrillation History of diabetes mellitus History of hypertension Osteoarthritis by history History of ascites, with multiple previous paracentesis abdominis. History of esophageal varices with GI bleed History of portal hypertension Liver cirrhosis, of unclear etiology. Anorexia/cachexia syndrome Plan: We'll obtain on chest x-ray today, to evaluate for residual pleural effusions. Patient reports improvement in his dyspnea after paracentesis on 10/19/2017. Denies less distended. His lung sounds are clear, diminished at the bases. Continue with current plan of treatment. White count is trending down, continue Rocephin for empiric antibiotic coverage. I performed a history & physical examination of the patient and discussed their management with my nurse practitioner, Elise Tompkins. I reviewed the nurse practitioner's note and agree with the documented findings and plan of care. Lung sounds are diminished at the bases. The findings and the impression was discussed with the patient. I attest to the documentation by the nurse practitioner. Time with Patient: Less than 30
--- NOTE | 2017-10-20 14:10 | XR ---
EXAMINATION TYPE: XR chest 2V DATE OF EXAM: 10/20/2017 COMPARISON: 10/17/2017 TECHNIQUE: PA and lateral views submitted. HISTORY: Follow-up pleural effusions, shortness of breath FINDINGS: Bilateral consolidation and pleural effusions are stable. No pneumothorax. Diffuse osteopenia noted. IMPRESSION: 1. Bilateral consolidation and pleural effusion are stable.
--- NOTE | 2017-10-20 14:37 | P.PN ---
Subjective Progress Note Date: 10/20/17 Principal diagnosis: SVT This is a pleasant 82-year-old gentleman admitted to the hospital primarily with symptoms of progressively worsening shortness of breath. Patient was noted to be having runs of supraventricular tachycardia as well as atrial fibrillation with rapid ventricular response. He does have a history of liver cirrhosis and ascites and therefore amiodarone was originally deferred. Chest x-ray today showed stable bilateral consolidation and pleural effusions. Patient is maintaining sinus rhythm but is a high risk for repeat episodes of atrial fibrillation with rapid ventricular response as well as SVT. He has not been anticoagulated due to history of GI bleeding. Upon examination, patient is resting comfortably in bed. Vital signs are stable. He denies complaints of dizziness, lightheadedness, palpitations, or chest discomfort. Objective - Vital Signs Vital signs: Vital Signs Temp 97.0 F L 10/20/17 11:05 Pulse 54 L 10/20/17 11:24 Resp 16 10/20/17 11:05 BP 93/56 10/20/17 11:05 Pulse Ox 93 L 10/20/17 11:05 Intake & Output 10/19/17 10/20/17 10/20/17 18:59 06:59 18:59 Intake Total 1593 170 476 Output Total 0 200 Balance 1593 -30 476 Weight 71.3 kg Intake: IV 220 170 0.9 @ 20 220 170 Intake, IV Titration 235 Amount Albumin Human 25% 50 ml 100 In Empty Bag 1 bag @ 100 mls/hr IVPB Q1H [facility] Rx#: [id number] Amiodarone 450 mg In 35 Dextrose 5% in Water 250 ml @ 1 MG/MIN 34.53 mls/ hr IV .Q7H31M [facility] Rx#: [id number] Dextrose 5% in Water 100 100 ml @ 618 mls/hr IV .Q10M [facility] with Amiodarone 150 mg Rx#:[id number] Oral 1138 476 Output: Urine 200 Stool 0 Other: Voiding Method Urinal Urinal Urinal - Exam PHYSICAL EXAMINATION: HEENT: Head is atraumatic, normocephalic. Pupils equal, round. Neck is supple. There is no elevated jugular venous pressure. HEART EXAMINATION: Heart sounds regular, S1 and S2 with a systolic murmur. CHEST EXAMINATION: Lungs are clear with diminished air entry bilateral bases. No chest wall tenderness is noted on palpation or with deep breathing. ABDOMEN: Soft, nontender. Bowel sounds are heard. No organomegaly noted. EXTREMITIES: 2+ peripheral pulses with no evidence of peripheral edema and no calf tenderness noted. NEUROLOGIC patient is awake, alert and oriented x3. . - Labs CBC & Chem 7: 10/20/17 05:44 10/20/17 05:44 Labs: Abnormal Lab Results - Last 24 Hours (Table) 10/20/17 10/20/17 Range/Units 05:44 05:44 WBC 13.1 H (3.8-10.6) k/uL RBC 3.81 L (4.30-5.90) m/uL Hgb 11.0 L (13.0-17.5) gm/dL Hct 34.0 L (39.0-53.0) % RDW 15.9 H (11.5-15.5) % Sodium 135 L (137-145) mmol/L Carbon Dioxide 21 L (22-30) mmol/L BUN 49 H (9-20) mg/dL Calcium 8.1 L (8.4-10.2) mg/dL Microbiology - Last 24 Hours (Table) 10/17/17 13:24 Blood Culture - Preliminary Blood No Growth after 48 hours Assessment and Plan Assessment: #1 paroxysmal supraventricular tachycardia #2 paroxysmal atrial fibrillation with rapid ventricular response #3 chronic liver disease with ascites #4 diabetes #5 hypertension Plan: From cardiology's perspective, we will continue Inderal. We will start the patient on amiodarone 200 mg by mouth twice a day. Patient is not a candidate for anticoagulation because of GI bleeding. The above dictated assessment and findings were discussed with signing physician. The impression and plan of care have been directed as dictated. Jannie Singer, Nurse Practitioner, acting as scribe for signing physician.
[2017-10-20] MEDS: AMIODARONE 200 MG TAB PO SCH ×2 (15:34→19:59)
[2017-10-20 21:06] LABS: Glucose,Whole Blood 99 mg/dL (75-99)
--- NOTE | 2017-10-21 05:12 | PN ---
PROGRESS NOTE CHIEF COMPLAINT: Re-evaluation. HISTORY OF PRESENT ILLNESS: This is an 82-year-old gentleman who was admitted to the hospital with SVT. The patient has a history of cirrhosis of the liver and recent upper GI bleeding requiring laser treatment of the varices. The patient at that time also had an episode of supraventricular tachycardia. The patient presents with the same symptoms of tachycardia and associated shortness of breath. The patient has significant bilateral pleural effusion, significant ascites. The patient had a paracentesis done yesterday. He does get a paracentesis of abdomen once a week. The patient has been placed on amiodarone, realizing the patient does have a history of liver disease. The have elected hospice care. I have reviewed with the patient's son today regarding hospice care and he is not sure about hospice care for now. He is going to further inquire about it and go from there. We should know more about it from him tomorrow. REVIEW OF SYSTEMS: NEURO: Denies any headaches, dizziness. PSYCH: Denies anxiety. CARDIAC: Denies chest pain or palpitations. RESPIRATORY: Denies shortness of breath. Has oxygen. GI: No nausea, vomiting, abdominal pain, diarrhea. : No symptoms of dysuria, hematuria. EXTREMITIES: Denies pain. Does have edema. CONSTITUTIONAL: No fever, chills. PHYSICAL EXAMINATION: Pleasant gentleman who appears chronically ill. Some mild cachexia. Vital signs reveal temperature 96.7, pulse 52, respirations 18, blood pressure 100/50, pulse ox 94% on 2 L. HEENT: Normocephalic. NECK: No JVD. CHEST: Clear to auscultation with decreased air flow at the bases and dullness to percussion on bilateral bases. CARDIAC: Distant heart sounds. S1, S2 with no gallops. Systolic murmur 2/6 left sternal border. Regular rhythm. ABDOMEN: Protuberant, soft. Bowel sounds present. Large umbilical hernia. Extremities reveal 1 to 2+ edema. NEUROLOGICAL: Awake, alert, oriented to person, place. Moves both upper and lower extremities adequately. LABORATORY ASSESSMENT: White count 13.1, hemoglobin 11, platelets 217. BUN 49, creatinine 1.10. ASSESSMENT: 1. Supraventricular tachycardia, resolved. 2. Cirrhosis of the liver. 3. Bilateral pleural effusion and ascites. 4. Anemia. 5. Cachexia. 6. . PLAN: Continue present medical regimen. Patient's condition discussed with the patient and family's wishes of hospice care. The patient is actually appropriate for hospice care, but he has to realize that it means that he is not able to seek any aggressive care and hospitalizations. He could still continue to have paracentesis therapeutic. The patient's condition was discussed with the son and was discussed with the yesterday. Prognosis remains guarded. MMODL / IJN: [id number] /
[2017-10-21 05:58] LABS: Glucose,Whole Blood 87 mg/dL (75-99)
[2017-10-21 06:16] LABS: Basophils % (A) 0 %; Eosinophils # (A) 0.1 k/uL (0-0.7); Eosinophils % (A) 0 %; HCT 37.1 % (39.0-53.0); HGB 11.8 gm/dL (13.0-17.5); Hypochromasia Slight; Lymphocytes # (A) 0.3 k/uL (1.0-4.8); Lymphocytes % (A) 3 %; MCH 28.4 pg (25.0-35.0); MCHC 31.9 g/dL (31.0-37.0); MCV 89.1 fL (80.0-100.0); Mean Platelet Volume 7.7; Monocytes # (A) 0.9 k/uL (0-1.0); Monocytes % (A) 7 %; Neutrophils # (A) 10.8 k/uL (1.3-7.7); Neutrophils % (A) 88 %; Platelet Count 219 k/uL (150-450); RBC 4.17 m/uL (4.30-5.90); WBC 12.2 k/uL (3.8-10.6)
[2017-10-21 06:27] LABS: Potassium 4.6 mmol/L (3.5-5.1)
[2017-10-21] MEDS: IPRATROPIUM-ALBUTEROL 3 ML NEB INHALATION SCH ×3 (08:09→19:54)
[2017-10-21] MEDS: AMIODARONE 200 MG TAB PO SCH (09:35)
[2017-10-21] MEDS: PROPRANOLOL LA 80 MG CAP.SA.24H PO SCH (09:36)
[2017-10-21] MEDS: SPIRONOLACTONE 25 MG TAB PO SCH ×2 (09:36→20:33)
[2017-10-21] MEDS: LISINOPRIL 10 MG TAB PO SCH (10:09)
--- NOTE | 2017-10-21 11:29 | P.PN ---
Subjective Progress Note Date: 10/21/17 Principal diagnosis: SVT This is a pleasant 82-year-old gentleman admitted to the hospital primarily with symptoms of progressively worsening shortness of breath. Patient was noted to be in the hospital earlier this month with ascites, he was noted at that time to have runs of supraventricular tachycardia, converted with adenosine. On this admission again patient was noted to be in supraventricular tachycardia and was administered adenosine, converted back to normal sinus rhythm. Patient also has history of paroxysmal atrial fibrillation. This morning around 5 AM, patient again went into supraventricular tachycardia and was given adenosine with conversion to normal sinus rhythm. At the time of our examination this morning fibrillation with rapid ventricular response, initially the thought was to start the patient on amiodarone, but because of his liver issues and ascites issues, this was deferred. This metoprolol was discontinued and patient was put back on Inderal which was initiated on this most recent admission. Examination At the time of my exaination this morning, patient did complain of feeling short of breath. He is noted on his chest x- ray to have bilateral pleural effusions. 10/21/2017 Patient was seen and examined this morning, he was not noted to have any further runs of supraventricular tachycardia or A. fib with RVR. Patient was initiated on oral amiodarone in spite of his history of liver process and ascites. This morning patient is in a sinus bradycardia, heart rate in the 40s , dose of amiodarone was held on evenings because of hypotension and bradycardia. Blood pressure 104/50 with a heart rate in the 40s to low 50s. White blood cell count 12.2, hemoglobin 11.8, platelet count 219. Sodium 137, potassium 4.6, BUN 49, creatinine 1.0. Objective - Vital Signs Vital signs: Vital Signs Temp 97.0 F L 10/21/17 08:00 Pulse 52 L 10/21/17 08:19 Resp 16 10/21/17 08:00 BP 104/57 10/21/17 08:00 Pulse Ox 96 10/21/17 08:00 Intake & Output 10/20/17 10/21/17 10/21/17 18:59 06:59 18:59 Intake Total 476 30 Output Total 400 Balance 476 -370 Weight 68.7 kg Intake: IV 30 0.9 @ 20 30 Oral 476 Output: Urine 400 Other: Voiding Method Urinal Urinal Urinal - Exam PHYSICAL EXAMINATION: HEENT: Head is atraumatic, normocephalic. Pupils equal, round. Neck is supple. There is no elevated jugular venous pressure. HEART EXAMINATION: Heart S1 and S2 irregularly irregular a systolic murmur is heard. CHEST EXAMINATION: Lungs are clear to with with diminished air entry to bilateral bases . ABDOMEN: Soft, nontender. Bowel sounds are heard. No organomegaly noted. EXTREMITIES: 2+ peripheral pulses with no evidence of peripheral edema and no calf tenderness noted. NEUROLOGIC patient is awake, alert and oriented -3. . - Labs CBC & Chem 7: 10/21/17 05:50 10/21/17 05:50 Labs: Abnormal Lab Results - Last 24 Hours (Table) 10/21/17 10/21/17 Range/Units 05:50 05:50 WBC 12.2 H (3.8-10.6) k/uL RBC 4.17 L (4.30-5.90) m/uL Hgb 11.8 L (13.0-17.5) gm/dL Hct 37.1 L (39.0-53.0) % RDW 16.0 H (11.5-15.5) % Neutrophils # 10.8 H (1.3-7.7) k/uL Lymphocytes # 0.3 L (1.0-4.8) k/uL Chloride 108 H (98-107) mmol/L Carbon Dioxide 21 L (22-30) mmol/L BUN 49 H (9-20) mg/dL Calcium 8.0 L (8.4-10.2) mg/dL Microbiology - Last 24 Hours (Table) 10/17/17 13:24 Blood Culture - Preliminary Blood No Growth after 72 hours Assessment and Plan Plan: Assessment and plan #1 paroxysmal supraventricular tachycardia #2 chronic ascites with underlying chronic liver disease. #3 chronic persistent atrial fibrillation #4 diabetes #5 hypertension Plan From cardiology's perspective, we'll continue propranolol 80 mg daily, lisinopril 10 mg daily, Aldactone 50 mg twice a day, Lasix 20 mg every other day , we will decrease amiodarone to 200 mg daily. Further recommendations to follow. DNP note has been reviewed, I agree with a documented findings and plan of care. Patient was seen and examined.
[2017-10-21 11:49] LABS: Glucose,Whole Blood 101 mg/dL (75-99)
[2017-10-21] MEDS ORDERED: LISINOPRIL 10 MG TAB PO SCH (12:00)
--- NOTE | 2017-10-21 15:28 | P.PN ---
Subjective Progress Note Date: 10/21/17 82-year-old male who presents to the emergency room complaining of increasing shortness of breath. In addition, he was having palpitations and increased heart rate about 150 bpm. The patient denied any chest pain or chest discomfort. He did not have any fever or chills. He did not have any abdominal pain nausea vomiting or diarrhea. In the ER he was found to have atrial fibrillation with RVR. Chest x-ray reveals some cardiomegaly and bilateral pleural effusions. The patient received some adenosine by EMS to send the heart rate down. He was treated medically for newly in the emergency room. Chest x-ray does show evidence of heart failure with bilateral effusions. His N-terminal proBNP was elevated. The patient's past medical history includes atrial fibrillation diabetes hypertension liver disease skin cancer and multiple paracentesis abdominis. The patient denies previous tobacco use. On 10/19/2016 patient seen in follow-up on selective care unit. She is resting in bed, states he does feel dyspneic even at rest. He had an episode of SVT this morning, was given a dose of adenosine after which she converted to normal sinus rhythm. He remains on 2 L per nasal cannula with O2 sat 97%. Currently in sinus bradycardia with a rate of 55 BPM. Afebrile. Patient's is at the bedside, states patient has weekly paracentesis, and he was acting scheduled for one for this morning. We consulted interventional radiology for ultrasound-guided paracentesis today, patient usually has 10-11 L removed on a regular basis. 6 L removed today, however paracentesis culture was not collected at the beginning of the procedure, and therefore specimen could not be sent down for a culture. We will give the patient 50 g of 25% albumin, and start patient on Rocephin. Continue with current medical treatment. On on 10/20/2017 patient seen in follow-up. He is status post paracentesis on 10/19/2017 with removal of 6.4 L of ascitic fluid. He tolerated the procedure well, today he states his breathing is easier, his abdomen is less distended. She remains on 2 L per nasal cannula with O2 sat at 93%. He is afebrile, hemodynamically stable, he has had no further episodes of SVT. Yesterday we started IV Rocephin empirically, unfortunately the ascites fluid could not be sent down for culture, as it was not collected into sterile receptacle. On today's blood work, patient's WBC is trending down, and is down to 13.1 from 21.5, serum sodium is 135, BUN is 49, and creatinine is 1.10. We will obtain a repeat chest x-ray today, to evaluate for residual pleural effusions. But overall patient reports his dyspnea to be improved. On 10/21/2017 I'm seeing this patient for a follow-up. No cervical abdominal distention. No signs of any hepatic encephalopathy. The patient is not having any nausea vomiting or abdominal pain. He is afebrile. A repeat chest x-ray was done yesterday and showed moderate size bilateral pleural effusion. 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 Nevertheless despite that has a pleural effusion, the patient not having any significant rest or distress. She denies any cough or sputum production. No pleurisy. No hemoptysis. No major swelling in lower extremities bilaterally. The patient's white cell count is dropped down to 12.2. Renal function is stable with a creatinine of 1.1. The patient is on Lasix 20 mg by mouth every 48 hours. The patient is also on a combination of propranolol, and Aldactone. Objective - Vital Signs Vital signs: Vital Signs Temp 96.7 F L 10/21/17 12:00 Pulse 52 L 10/21/17 13:45 Resp 18 10/21/17 12:00 BP 99/52 10/21/17 12:00 Pulse Ox 99 10/21/17 12:00 Intake & Output 10/20/17 10/21/17 10/21/17 18:59 06:59 18:59 Intake Total 476 30 Output Total 400 Balance 476 -370 Weight 68.7 kg Intake: IV 30 0.9 @ 20 30 Oral 476 Output: Urine 400 Other: Voiding Method Urinal Urinal Urinal # Voids 1 - Exam No acute distress, oriented 3. Nasal O2 in place HEENT examination is grossly unremarkable. Mucous membranes are moist. No oral lesions. Neck supple. Full range of motion. No adenopathy thyromegaly or neck vein distention. Cardiovascular examination reveals irregular rhythm and rate. S1-S2 normal. No S3 or S4. No discernible murmur noted. Heart sounds are distant. Lungs reveal diminished breath sounds at the bases, with no crackles.. No rhonchi are noted. Breath sounds are equal bilaterally. Abdomen soft bowel sounds are heard. The abdomen is less distended, soft, nontender. Patient is status post paracentesis with removal of 6.4 L of ascites fluid on 10/19/2017 Extremities are intact. No cyanosis or clubbing. Mild edema noted. Skin is without rash or lesion. Neurologic examination is brief but nonfocal. - Labs CBC & Chem 7: 10/21/17 05:50 10/21/17 05:50 Labs: Abnormal Lab Results - Last 24 Hours (Table) 10/21/17 10/21/17 10/21/17 Range/Units 05:50 05:50 11:46 WBC 12.2 H (3.8-10.6) k/uL RBC 4.17 L (4.30-5.90) m/uL Hgb 11.8 L (13.0-17.5) gm/dL Hct 37.1 L (39.0-53.0) % RDW 16.0 H (11.5-15.5) % Neutrophils # 10.8 H (1.3-7.7) k/uL Lymphocytes # 0.3 L (1.0-4.8) k/uL Chloride 108 H (98-107) mmol/L Carbon Dioxide 21 L (22-30) mmol/L BUN 49 H (9-20) mg/dL POC Glucose (mg/dL) 101 H (75-99) mg/dL Calcium 8.0 L (8.4-10.2) mg/dL Microbiology - Last 24 Hours (Table) 10/17/17 13:24 Blood Culture - Preliminary Blood No Growth after 72 hours Assessment and Plan Plan: Assessment: Bilateral pleural effusions, in a the patient with liver cirrhosis and chronic ascites, and weekly paracentesis. The patient was informed of the presence of bilateral pleural effusion. No need for thoracentesis on this patient is not having any significant respiratory distress. In fact the patient improved following the paracentesis. History of atrial fibrillation History of diabetes mellitus History of hypertension Osteoarthritis by history History of ascites, with multiple previous paracentesis abdominis. History of esophageal varices with GI bleed History of portal hypertension Liver cirrhosis, of unclear etiology. Anorexia/cachexia syndrome Leukocytosis, improved Plan Patient is stable. He has signs of chronic liver failure/cirrhosis. He has ascites for which underwent paracentesis. 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 In any rate, the patient not having any respiratory distress. I discussed the findings with him. We'll continue Lasix and Aldactone. We will consider thoracentesis if there is any worsening in shortness of breath. He is currently pulse oxing 99% on 2 L of oxygen nasal cannula. No signs of any lung infection. We'll continue to follow.
[2017-10-21 16:50] LABS: Glucose,Whole Blood 131 mg/dL (75-99)
[2017-10-21 21:07] LABS: Glucose,Whole Blood 94 mg/dL (75-99)
--- NOTE | 2017-10-21 23:47 | PN ---
PROGRESS NOTE CHIEF COMPLAINT: Re-evaluation. HISTORY OF PRESENT ILLNESS: This 82-year-old gentleman was admitted to the hospital with shortness of breath and was noted to be in SVT. The patient is controlled with medications, including amiodarone. The patient does have cirrhosis of the liver and understands the risks of amiodarone with liver disease. The patient, however, is going to be under hospice services, which are being arranged. The patient and family have elected this end of life palliative care. The family requested that we put a pigtail catheter into the belly for draining of his abdomen. Unfortunately the radiologists do not do this and the surgeon is on vacation. I have discussed this with the patient's . The patient might still be able to be discharged home under hospice service and subsequently brought back in for the pigtail catheter. The patient's general condition otherwise is guarded. He has had no further bleeding. He was actually somewhat bradycardic but not hypotensive. The patient denies any major complaints. He says his breathing is fairly okay. He does use oxygen. I again explained to the patient regarding hospice care, terminal care, which he is in agreement with. He does understand that this is end of life status. He does have a terminal disease with advanced liver failure. REVIEW OF SYSTEMS: NEURO: Denies any headaches, dizziness. PSYCH: No anxiety. CARDIAC: Denies chest pain, angina, palpitations. RESPIRATORY: Denies shortness of breath with oxygen on. Has no cough, no hemoptysis. GI: No nausea, vomiting, abdominal pain, diarrhea. : No symptoms of dysuria, hematuria. EXTREMITIES: No pain. CONSTITUTIONAL: No fever, chills. PHYSICAL EXAMINATION: Pleasant gentleman in no distress. VITALS: Temperature 97, pulse 48, respirations 16, blood pressure 104/37, pulse ox 96% on 2 L. HEENT: Normocephalic. NECK: No JVD. CHEST: Clear to auscultation with decreased air flow at the bases. Patient has bilateral dullness on percussion to the bases. CARDIAC: Distant heart sounds S1, S2 with no gallops. Regular rhythm. Systolic murmur 2/6, right second intercostal space in apex. ABDOMEN: Soft. Bowel sounds are present. The patient has ascites. He has a fairly large umbilical hernia that has stretched out the skin. Extremities reveal edema. Neurologically awake, alert, oriented to place, person. Moves both upper and lower extremities adequately. The patient's musculature is decreased. ASSESSMENT: 1. Supraventricular tachycardia, resolved. 2. Bradycardia. 3. Cirrhosis of the liver with portal hypertension. 4. History of hypertension. 5. Ascites. 6. Umbilical hernia. PLAN: Continue present medical care. Will discontinue Rocephin; I do not agree with the patient being placed on Rocephin with no clear evidence of infection. The patient is not encephalopathic. Patient's prognosis remains guarded. Awaiting arrangement for hospice care. MMODL / IJN: [id number] /
[2017-10-22 06:28] LABS: Glucose,Whole Blood 101 mg/dL (75-99)
[2017-10-22] MEDS: IPRATROPIUM-ALBUTEROL 3 ML NEB INHALATION SCH ×2 (08:44→13:18)
[2017-10-22] MEDS ORDERED: AMIODARONE 200 MG TAB PO SCH (09:00)
[2017-10-22] MEDS ORDERED: LISINOPRIL 2.5 MG TAB PO SCH (09:00)
[2017-10-22] MEDS: SPIRONOLACTONE 25 MG TAB PO SCH (09:12)
[2017-10-22] MEDS: PROPRANOLOL LA 80 MG CAP.SA.24H PO SCH (09:12)
[2017-10-22] MEDS: FUROSEMIDE 20 MG TAB PO SCH (09:36)
[2017-10-22 11:23] LABS: Glucose,Whole Blood 118 mg/dL (75-99)
[2017-10-22 12:09] VITALS: TEMP 96.9
--- NOTE | 2017-10-22 12:27 | P.PN ---
Subjective Progress Note Date: 10/22/17 Principal diagnosis: SVT This is a pleasant 82-year-old gentleman admitted to the hospital primarily with symptoms of progressively worsening shortness of breath. Patient was noted to be in the hospital earlier this month with ascites, he was noted at that time to have runs of supraventricular tachycardia, converted with adenosine. On this admission again patient was noted to be in supraventricular tachycardia and was administered adenosine, converted back to normal sinus rhythm. Patient also has history of paroxysmal atrial fibrillation. This morning around 5 AM, patient again went into supraventricular tachycardia and was given adenosine with conversion to normal sinus rhythm. At the time of our examination this morning fibrillation with rapid ventricular response, initially the thought was to start the patient on amiodarone, but because of his liver issues and ascites issues, this was deferred. This metoprolol was discontinued and patient was put back on Inderal which was initiated on this most recent admission. Examination At the time of my exaination this morning, patient did complain of feeling short of breath. He is noted on his chest x- ray to have bilateral pleural effusions. 10/21/2017 Patient was seen and examined this morning, he was not noted to have any further runs of supraventricular tachycardia or A. fib with RVR. Patient was initiated on oral amiodarone in spite of his history of liver process and ascites. This morning patient is in a sinus bradycardia, heart rate in the 40s , dose of amiodarone was held on evenings because of hypotension and bradycardia. Blood pressure 104/50 with a heart rate in the 40s to low 50s. White blood cell count 12.2, hemoglobin 11.8, platelet count 219. Sodium 137, potassium 4.6, BUN 49, creatinine 1.0. 10/22/2017 Patient seen and examined this morning, no further arrhythmias have been noted on the monitor. Heart rate today remaining in the 50s. Arrangements are being made for the patient to be discharged with hospice. Objective - Vital Signs Vital signs: Vital Signs Temp 96.9 F L 10/22/17 12:00 Pulse 48 L 10/22/17 12:00 Resp 16 10/22/17 12:00 BP 103/59 10/22/17 12:00 Pulse Ox 98 10/22/17 12:00 Intake & Output 10/21/17 10/22/17 10/22/17 18:59 06:59 18:59 Intake Total 180 200 420 Output Total 200 Balance 180 0 420 Weight 58.7 kg Intake: Oral 180 200 420 Output: Urine 200 Other: Voiding Method Urinal Urinal Urinal # Voids 1 - Exam PHYSICAL EXAMINATION: HEENT: Head is atraumatic, normocephalic. Pupils equal, round. Neck is supple. There is no elevated jugular venous pressure. HEART EXAMINATION: Heart S1 and S2 irregularly irregular a systolic murmur is heard. CHEST EXAMINATION: Lungs are clear to with with diminished air entry to bilateral bases . ABDOMEN: Soft, nontender. Bowel sounds are heard. No organomegaly noted. EXTREMITIES: 2+ peripheral pulses with no evidence of peripheral edema and no calf tenderness noted. NEUROLOGIC patient is awake, alert and oriented -3. . - Labs CBC & Chem 7: 10/21/17 05:50 10/21/17 05:50 Labs: Abnormal Lab Results - Last 24 Hours (Table) 10/21/17 10/22/17 10/22/17 Range/Units 16:47 06:26 11:22 POC Glucose (mg/dL) 131 H 101 H 118 H (75-99) mg/dL Microbiology - Last 24 Hours (Table) 10/17/17 13:24 Blood Culture - Preliminary Blood No Growth after 96 hours Assessment and Plan Plan: Assessment and plan #1 paroxysmal supraventricular tachycardia #2 chronic ascites with underlying chronic liver disease. #3 chronic persistent atrial fibrillation #4 diabetes #5 hypertension Plan From cardiology's perspective, we'll continue propranolol 80 mg daily, lisinopril 10 mg daily, Aldactone 50 mg twice a day, Lasix 20 mg every other day , amiodarone 200 mg daily. Arrangements are being made for the patient to be discharged with hospice. We will follow him along with you now on an as-needed basis only, please don't hesitate to call with any questions. DNP note has been reviewed, I agree with a documented findings and plan of care. Patient was seen and examined.
[2017-10-22 14:11] LABS: Platelet Count 234 k/uL (150-450)
[2017-10-22 14:19] LABS: INR 1.3 (<1.2); Partial Thromboplastin Time 24.7 sec (22.0-30.0); Prothrombin Time 11.9 sec (9.0-12.0)
[2017-10-22 15:05] VITALS: RESP 20
--- NOTE | 2017-10-22 16:21 | US ---
EXAMINATION TYPE: US paracentesis abd w/image DATE OF EXAM: 10/22/2017 COMPARISON: NONE HISTORY: Ascites. PROCEDURE: Maximal barrier technique was utilized. The skin overlying a suitable pocket of fluid was localized with ultrasound and the overlying skin was prepped and draped. Ultrasound was utilized with sterile technique. Lidocaine was used for local anesthesia and a skin kezia made with a scalpel. Catheter was advanced under direct ultrasound guidance into a suitable pocket of fluid and approximately 3.3 liter s of serous fluid were removed. Catheter was withdrawn and hemostasis achieved. There is no immedia te complication; the patient is discharged in stable condition. IMPRESSION: STATUS POST ULTRASOUND GUIDED PARACENTESIS FOR PALLIATION OF ASCITES. THIS PROCEDURE WA S PERFORMED BY THE UNDERSIGNED.
[2017-10-22 16:42] LABS: Glucose,Whole Blood 111 mg/dL (75-99)
[2017-10-22 18:47] VITALS: PULSE 47
[2017-10-22 18:48] VITALS: BP 106/61
--- NOTE | 2017-10-22 22:27 | DS ---
DISCHARGE SUMMARY FINAL DIAGNOSES: 1. Supraventricular tachycardia. 2. Bilateral pleural effusions. 3. Cirrhosis of the liver. 4. Esophageal varices. 5. Portal hypertension. 6. Paroxysmal atrial fibrillation. 7. History of hypertension. 8. Anemia of chronic disease. 9. 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 HISTORY OF PRESENT ILLNESS: This gentleman was admitted to the hospital because of some shortness of breath and noted to be in supraventricular tachycardia. The patient was recently hospitalized for similar symptoms, but also at that time had GI bleeding. The patient had esophageal varices lasered. The patient has no further evidence of bleeding. The patient does have a history of cirrhosis of the liver of unknown etiology. He has associated significant portal hypertension. Due to the significant portal hypertension, he gets ascites. He has a very large umbilical hernia with very thin skin with the risk of rupture. The patient does wear a binder at times. He does have abdominal paracentesis at least once a week. The patient also has this due to associated bilateral pleural effusions. The patient was seen and admitted to the hospital, initially treated with Inderal and then had to be placed on amiodarone in view of his tachycardia not responding to beta blockers. The patient was seen by Cardiology. Since the patient is going to be under hospice care, the patient has been placed on amiodarone for symptom treatment of his SVT. We do understand the risk of amiodarone related to his cirrhosis of the liver. The patient had 2 abdominal paracenteses during the hospital stay to help with comfort. The second one was done just prior to discharge, as the hospice services previously contacted would not take the patient unless he had a pigtail catheter placed in his abdomen for home drainage. The patient did not have this procedure because the surgeon who does this is on vacation and the radiologist could not do that. The patient is actually feeling fairly well. He denies any headaches or dizziness at the time of discharge. Denied any chest pain. No shortness of breath. His oxygenation on room air was fairly good. He does have bilateral pleural effusions, which are again as an extension of his significant abdominal fluid. The patient does have some peripheral edema. He is discharged home on diuretics. His prognosis remains guarded. He could very well be in long-term hospice for anywhere from 3 to 4 months. The patient would be deemed terminal care. The patient's laboratory evaluations had revealed an INR of 1.3. Blood sugar was adequate. Platelet count was 234 with the last draw. He did have elevated white count. The alcohol and drug counselor did decide to put him on an antibiotic; however, I did not feel that was essential, as the patient has clearly no evidence of any infective process. His white count is coming down spontaneously. His BUN is up to 49, creatinine 1.1. This is partly due to use of diuretics to help control some of the ascites. At the time of discharge, patient's condition is stable, prognosis poor. Medications at the time of discharge were: 1. Amiodarone 200 mg daily. 2. Lasix 20 mg every other day. 3. Zestril 2.5 mg daily. 4. Inderal 80 mg daily. 5. Spironolactone 50 mg b.i.d. It would be addressed to the hospice nursing staff that the patient enough Inderal unless he is hypotensive. The patient will be also continued on amiodarone to try and keep his recurrent SVT under control. The patient otherwise does not require any medications for anxiety or pain at present. He may need that down the road. The patient's condition during the hospital stay was discussed with his son at least twice and his at least twice. The patient was also advised about his condition and the decision regarding hospice made by his family, and he was agreeable to that. CAMERON / ROBSON: [id number] /
--- NOTE | 2017-10-27 12:23 | ECHOF ---
Referral Reason:shortness of breath MEASUREMENTS -------- HEIGHT: 182.9 cm WEIGHT: 78.9 kg BP: 145/79 IVSd: 1.6 cm (0.6 - 1.1) LVIDd: 2.1 cm (3.9 - 5.3) LVPWd: 1.4 cm (0.6 - 1.1) IVSs: 1.6 cm LVIDs: 1.3 cm LVPWs: 1.7 cm Ao Diam: 3.5 cm (2.0 - 3.7) AV Cusp: 1.7 cm (1.5 - 2.6) LA Diam: 2.9 cm (2.7 - 3.8) RAP: 5.00 mmHg RVSP: 8.09 mmHg FINDINGS -------- Resting tachycardia (HR>100bpm). This was a technically difficult study with suboptimal views. The left ventricular size is normal. There is moderate concentric left ventricular hypertrophy. O verall left ventricular systolic function is mildly impaired with, an EF between 45 - 50 %. The right ventricle is normal in size and function. The left atrium is normal in size. The right atrium is normal in size. Lumason used The aortic valve is trileaflet, and appears structurally normal. No aortic stenosis or regurgitation. The mitral valve leaflets are mildly thickened. There is trace mitral regurgitation. Trace tricuspid regurgitation present. The right ventricular systolic pressure, as measured by Dopp ler, is 8.09mmHg. The pulmonic valve was not well visualized. The aortic root size is normal. Large Pleural Effusion. CONCLUSIONS -------- 1. Resting tachycardia (HR>100bpm). 2. This was a technically difficult study with suboptimal views. 3. The left ventricular size is normal. 4. There is moderate concentric left ventricular hypertrophy. 5. The right ventricle is normal in size and function. 6. The left atrium is normal in size. 7. The right atrium is normal in size. 8. Lumason used 9. The aortic valve is trileaflet, and appears structurally normal. No aortic stenosis or regurgitati on. 10. The mitral valve leaflets are mildly thickened. 11. There is trace mitral regurgitation. 12. Trace tricuspid regurgitation present. 13. The right ventricular systolic pressure, as measured by Doppler, is 8.09mmHg. 14. The pulmonic valve was not well visualized. 15. The aortic root size is normal. 16. Large Pleural Effusion. LUMP INSPECTOR: Deanna Esteves RDCS
--- NOTE | 2017-10-28 16:26 | CDI ---
Last Revision, June 2017 Documentation Clarification Form Date: 10/28/2017 12:00:00 AM From: NOEMÍ Love; Farzana Bustos Environmental Compliance Specialist Phone: If you have a question about this query, please contact Farzana Bustos Environmental Compliance Specialist at [phone] between 8am and 5pm. Admit Date: 10/17/2017 1:38:00 PM Patient Name: Tam Levin Visit Number: [id number] Discharge Date: 10/22/17 ATTENTION: The Clinical Documentation Specialists (CDI) and [facility] Coding Staff appreciate your assistance in clarifying documentation. Please respond to the clarification below the line at the bottom and electronically sign. The CDI & [facility] Coding staff will review the response and follow-up if needed. Please note: Queries are made part of the Legal Health Record. If you have any questions, please contact the author of this message via ITS. Dr. Barrett Jeter Acute on chronic congestive heart failure is documented in record. History/Risk Factors: Shortness of breath, palpitations, pleural effusion, liver failure Clinical indicators: Mild pitting edema, neck veins are distended. BNP: 7470 Echocardiogram Results: Impaired systolic function and EF 45-50% Chest X Ray: Bilateral pleural effusions Treatment: Lasix. thoracentesis In your professional opinion, can you please clarify the type of CHF if known? Systolic Heart Failure: Diastolic Heart Failure: Systolic & Diastolic Heart Failure: No heart failure Unable to Determine Other, please specify MTDD
--- NOTE | 2017-10-29 15:30 | CDI ---
Last Revision, June 2017 Documentation Clarification Form Date: 10/29/2017 12:00:00 AM From: NOEMÍ Love; Farzana Bustos Production Checker Phone: If you have a question about this query, please contact Farzana Bustos Production Checker at [phone] between 8am and 5pm. Admit Date: 10/17/2017 1:38:00 PM Patient Name: Tam Levin Visit Number: [id number] Discharge Date: 10/22/17 ATTENTION: The Clinical Documentation Specialists (CDI) and [facility] Coding Staff appreciate your assistance in clarifying documentation. Please respond to the clarification below the line at the bottom and electronically sign. The CDI & [facility] Coding staff will review the response and follow-up if needed. Please note: Queries are made part of the Legal Health Record. If you have any questions, please contact the author of this message via ITS. Dr. Barrett Jeter Acute on chronic congestive heart failure is documented in record. History/Risk Factors: Shortness of breath, palpitations, pleural effusion, liver failure Clinical indicators: Mild pitting edema, neck veins are distended. BNP: 7470 Echocardiogram Results: Impaired systolic function and EF 45-50% Chest X Ray: Bilateral pleural effusions Treatment: Lasix. thoracentesis In your professional opinion, can you please clarify the type of CHF if known? Systolic Heart Failure: Diastolic Heart Failure: Systolic & Diastolic Heart Failure: No heart failure Unable to Determine Other, please specify MTDD
--- NOTE | 2017-11-05 12:55 | CDI ---
Documentation Clarification Form Date: 11/05/2017 12:00:00 AM From: NOEMÍ Love; Farzana Bustos [employer] Phone: If you have a question about this query, please contact Farzana Bustos [employer] at [phone] between 8am and 5pm. Admit Date: 10/17/2017 1:38:00 PM Patient Name: Tam Levin Visit Number: [id number] Discharge Date: 10/22/17 ATTENTION: The Clinical Documentation Specialists (CDI) and [facility] Coding Staff appreciate your assistance in clarifying documentation. Please respond to the clarification below the line at the bottom and electronically sign. The CDI & [facility] Coding staff will review the response and follow-up if needed. Please note: Queries are made part of the Legal Health Record. If you have any questions, please contact the author of this message via ITS. Dr. Barrett Jeter Acute on chronic congestive heart failure is documented in record. History/Risk Factors: Shortness of breath, palpitations, pleural effusion, liver failure Clinical indicators: Mild pitting edema, neck veins are distended. BNP: 7470 Echocardiogram Results: Impaired systolic function and EF 45-50% Chest X Ray: Bilateral pleural effusions Treatment: Lasix. thoracentesis In your professional opinion, can you please clarify the type of CHF if known? Systolic Heart Failure: Diastolic Heart Failure: Systolic & Diastolic Heart Failure: Unable to Determine Other, please specify MTDD
--- NOTE | 2017-11-06 15:35 | CDI ---
Last Revision, June 2017 Documentation Clarification Form Date: 11/06/2017 12:00:00 AM From: NOEMÍ Love; Farzana Bustos Computer Technology Instructor Phone: If you have a question about this query, please contact Farzana Bustos Computer Technology Instructor at [phone] between 8am and 5pm. Admit Date: 10/17/2017 1:38:00 PM Patient Name: Tam Levin Visit Number: [id number] Discharge Date: 10/22/17 ATTENTION: The Clinical Documentation Specialists (CDI) and [facility] Coding Staff appreciate your assistance in clarifying documentation. Please respond to the clarification below the line at the bottom and electronically sign. The CDI & [facility] Coding staff will review the response and follow-up if needed. Please note: Queries are made part of the Legal Health Record. If you have any questions, please contact the author of this message via ITS. Dr. Barrett Jeter Acute on chronic congestive heart failure is documented on progress note dated . History/Risk Factors: Shortness of breath, palpitations, pleural effusion, liver failure Clinical indicators: Mild pitting edema, neck veins are distended. BNP: 7470 Echocardiogram Results: Impaired systolic function and EF 45-50% Chest X Ray: Bilateral pleural effusions Treatment: Lasix 20 mg po and thoracentesis In your professional opinion, can you please clarify the type of CHF if known? Systolic Heart Failure: Diastolic Heart Failure: Systolic & Diastolic Heart Failure No heart failure Unable to Determine Other, please specify MTDD
--- NOTE | 2017-11-18 10:02 | CDI ---
Last Revision, June 2017 Documentation Clarification Form Date: 11/18/2017 12:00:00 AM From: NOEMÍ Love; Phone: If you have a question about this query, please contact Farzana Bustos [employer] at [phone] between 8am and 5pm. Admit Date: 10/17/2017 1:38:00 PM Patient Name: Tam Levin Visit Number: [id number] Discharge Date: 10/22/17 ATTENTION: The Clinical Documentation Specialists (CDI) and [facility] Coding Staff appreciate your assistance in clarifying documentation. Please respond to the clarification below the line at the bottom and electronically sign. The CDI & [facility] Coding staff will review the response and follow-up if needed. Please note: Queries are made part of the Legal Health Record. If you have any questions, please contact [employer]. Dr. Barrett Jeter Acute on chronic congestive heart failure is documented in record. History/Risk Factors: Shortness of breath, palpitations, pleural effusion, liver failure Clinical indicators: Mild pitting edema, neck veins are distended. BNP: 7470 Echocardiogram Results: Impaired systolic function and EF 45-50% Chest X Ray: Bilateral pleural effusions Treatment: Lasix and thoracentesis In your professional opinion, can you please clarify the type of CHF if known? Systolic Heart Failure: Diastolic Heart Failure: Systolic & Diastolic Heart Failure: Unable to Determine Other, please specify MTDD
--- NOTE | 2017-11-19 07:40 | CDI ---
Last Revision, June 2017 Documentation Clarification Form Date: 11/19/2017 12:00:00 AM From: NOEMÍ Love; Farzana Bustos Line Worker Phone: If you have a question about this query, please contact Farzana Bustos Line Worker at [phone] between 8am and 5pm. Admit Date: 10/17/2017 1:38:00 PM Patient Name: Tam Levin Visit Number: [id number] Discharge Date: 10/22/17 ATTENTION: The Clinical Documentation Specialists (CDI) and [facility] Coding Staff appreciate your assistance in clarifying documentation. Please respond to the clarification below the line at the bottom and electronically sign. The CDI & [facility] Coding staff will review the response and follow-up if needed. Please note: Queries are made part of the Legal Health Record. If you have any questions, please contact the author of this message via ITS. Dr. Barrett Jeter Congestive heart failure is documented in record, along with cirrhosis of the liver. History/Risk Factors: Shortness of breath, palpitations, pleural effusion, liver failure, cirrhosis Clinical indicators: Mild pitting edema, neck veins are distended. BNP: 7470 Echocardiogram Results: Impaired systolic function and EF 45-50% Chest X Ray: Bilateral pleural effusions Treatment: Lasix. thoracentesis In your professional opinion, can you please clarify the acuity of the documented CHF or was this pleural effusion due to another cause? Systolic Heart Failure: Diastolic Heart Failure: Systolic & Diastolic Heart Failure: No heart failure Pleural effusion due to cirrhosis of the liver Unable to Determine Other, please specify MTDD
--- NOTE | 2017-11-21 12:31 | P.DS ---
Providers Date of admission: 10/17/17 13:38 Attending physician: Barrett Jeter Consults: 10/17/17 13:38 Consult Physician Urgent Consulting Provider: Skyler Pham Consult Reason/Comments: Pleural effusions Do you want consulting provider notified?: Yes Consult Physician Urgent Consulting Provider: [facility] Consult Reason/Comments: Tachycardia, pleural effusions Do you want consulting provider notified?: Yes Primary care physician: Barrett Jeter [facility] Course: This is an addendum to primary. 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 Patient's ejection fraction on echocardiogram and valvular functions normal Patient Condition at Discharge: Stable Plan - Discharge Summary Discharge Rx Participant: No New Discharge Prescriptions: New Amiodarone [Cordarone] 200 mg PO DAILY #30 tab Lisinopril [Zestril] 2.5 mg PO DAILY #30 tab Propranolol LA [Inderal LA] 80 mg PO DAILY cap.sa.24h Continue Spironolactone [Aldactone] 50 mg PO BID Furosemide [Lasix] 20 mg PO Q48H #0 Discharge Medication List Spironolactone [Aldactone] 50 mg PO BID 11/13/16 [History] Furosemide [Lasix] 20 mg PO Q48H #0 10/07/17 [Rx] Amiodarone [Cordarone] 200 mg PO DAILY #30 tab 10/22/17 [Rx] Lisinopril [Zestril] 2.5 mg PO DAILY #30 tab 10/22/17 [Rx] Propranolol LA [Inderal LA] 80 mg PO DAILY cap.sa.24h 10/22/17 [Rx] Follow up Appointment(s)/Referral(s): Barrett Jeter MD [Primary Care Provider] - 1-2 days Patient Instructions/Handouts: Hospice (DC), Tachycardia (GEN) Activity/Diet/Wound Care/Special Instructions: [facility]: #[phone] - Nurse visit 10/22/17 @8:00 p.m. Discharge Disposition: STILL PT- FOR INTERIM BILLING
== END 2017-10-22 17:40 | disposition hospice, home (50) | DRG 309 ==
LOC: EC 10:20 → 6SEL 13:38
PROVIDERS: ADMIT Internal Medicine; ATTEND Internal Medicine
PROC: 0W9G3ZZ Drainage of Peritoneal Cavity, Percutaneous Approach (ICD-10-PCS; 2017-10-19)
PROC: 0W9G3ZZ Drainage of Peritoneal Cavity, Percutaneous Approach (ICD-10-PCS; principal; 2017-10-22)
DX: I47.1 Supraventricular tachycardia (principal); I85.00 Esophageal varices without bleeding; R18.8 Other ascites; R64 Cachexia; E87.5 Hyperkalemia; I11.0 Hypertensive heart disease with heart failure; I48.0 Paroxysmal atrial fibrillation; I48.1 Persistent atrial fibrillation; K76.6 Portal hypertension; D63.8 Anemia in other chronic diseases classified elsewhere; E11.9 Type 2 diabetes mellitus without complications; D72.829 Elevated white blood cell count, unspecified; I48.2 Chronic atrial fibrillation; J44.9 Chronic obstructive pulmonary disease, unspecified; K42.9 Umbilical hernia without obstruction or gangrene; K72.90 Hepatic failure, unspecified without coma; K74.60 Unspecified cirrhosis of liver; R09.02 Hypoxemia; M19.90 Unspecified osteoarthritis, unspecified site; Z51.5 Encounter for palliative care; Z79.899 Other long term (current) drug therapy; Z82.49 Family history of ischemic heart disease and other diseases of the circulatory system; Z82.5 Family history of asthma and other chronic lower respiratory diseases; Z85.828 Personal history of other malignant neoplasm of skin; Z88.0 Allergy status to penicillin
CPT/HCPCS: 36415; 49083; 71046; 80048; 80053; 81003; 82550; 82553; 83605; 83735; 83880; 84484; 85025; 85027; 85049; 85610; 85730; 87040; 93005; 93306; 94640; 94760; 96361; 96365; 99285